=== PATIENT | female | born 1960 | race Caucasian/White ===

== ENCOUNTER → 2016-12-25 | Outpatient (REF) | payer MEDICAID, OTHER ==
[2016-12-29 00:07] LABS: SJOGREN'S ANTI SS-A <0.2 AI (0.0-0.9); SJOGREN'S ANTI SS-B <0.2 AI (0.0-0.9)
== END ==
LOC: M LAB REF 16:55
PROVIDERS: ATTEND Internal Medicine Pulmonary Disease
DX: J84.9 Interstitial pulmonary disease, unspecified (principal)

== ENCOUNTER → 2017-04-10 | Outpatient (CLI) | payer MEDICARE, MEDICAID ==
[~2017-04-10] MED LIST: ALBU17IN INH; AZEL0.05 OP; AZEL0.1S3; FOSA70TA PO; HYDR-3363 PO; IPRASOL4 IN; METF750T PO; METO1TAB32 PO; MONT10TA2 PO; OMEP40CA2 PO; OYST500T17 PO; QUET1TAB7 PO; SERT-138 PO; TESS100C PO; VITA200016 PO
--- NOTE | 2017-04-10 17:36 | REP ---
CT study of chest without contrast: History: Interstitial pulmonary disease. Comparison is made with films from a thoracic spine radiographic series done November 02, 2015. CT findings: Noncontrast CT study shows scattered small mediastinal lymph nodes. No hilar adenopathy is appreciated on this noncontrast study. There is a diffuse interstitial fibrosis pattern, predominantly subpleural in the lower lobes bilaterally and in the upper lobes bilaterally. This is associated with bronchiectasis in the same distribution fairly extensively. There is relative sparing of lingular segment of the left upper lobe with oligemia in this segment. There is similar sparing and apparent oligemia in the superior segment right lower lobe. No endobronchial disease is seen. There is a right tracheal diverticulum noted incidentally measuring 1.3 cm in diameter. This is an uncommon normal variant, usually of no significance. The lung parenchyma shows interstitial fibrosis pattern on the 11/02/2015 radiographs of the thoracic spine. No pulmonary mass or nodule is appreciated. No pleural or pericardial effusion is seen. No bony destructive lesion is appreciated. No adrenal lesion is seen. Impression: Interstitial fibrosis pattern with predominantly subpleural fibrosis, bilateral bronchiectasis, some sparing in the lingula and superior segment of the right lower lobe. 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 Signed by Chano Smith MD 04/11/2017 09:24 A
== END ==
LOC: M RAD 15:32
PROVIDERS: ATTEND Internal Medicine Pulmonary Disease
DX: J84.9 Interstitial pulmonary disease, unspecified (principal)

== ENCOUNTER → 2017-04-11 | Outpatient (CLI) | payer MEDICARE, MEDICAID ==
[2017-04-11 13:08] LABS: ABG BASE EXCESS 1.3 (-2.0-2.0); ABG HCO3 27.3 MEQ/L (22.0-26.0); ABG PARTIAL PRESSURE CO2 48.2 mmHg (35.0-45.0); ABG PARTIAL PRESSURE O2 78.5 mmHg (75.0-100.0); ABG STANDARD HCO3 25.6 MEQ/L (22.0-26.0); ABG TOTAL CO2 28.8 MEQ/L (22.0-29.0); ABG pH (ARTERIAL) 7.371 UNITS (7.350-7.450)
[2017-04-11 13:31] LABS: MEAN CORPUSCULAR HEMOGLOBIN 31.7 pg (27.0-33.0); MEAN CORPUSCULAR HGB CONC 33.6 g/dl (32.0-36.5); MEAN CORPUSCULAR VOLUME 94.5 fl (80.0-96.0); RED CELL DISTRIBUTION WIDTH 12.2 % (11.5-14.5); WHITE BLOOD COUNT 12.2 K/mm3 (4.0-10.0)
[2017-04-11 13:38] LABS: INR 0.97
--- NOTE | 2017-04-11 13:54 | REP ---
CHEST, TWO VIEWS: HISTORY: Pulmonary nodule. There is elevation of the right hemidiaphragm. A diffuse increase in interstitial markings is present in the lungs consistent with chronic interstitial fibrosis. The heart is normal in size. The pulmonary vasculature is normal in appearance. The bony structure is intact. IMPRESSION: Chronic interstitial fibrosis. Signed by Thanh Penn MD 04/11/2017 02:07 P
[2017-04-11 13:57] LABS: ANION GAP 6 MEQ/L (8-16); BLOOD UREA NITROGEN 7 MG/DL (7-18); CALCIUM LEVEL 9.2 MG/DL (8.5-10.1); CARBON DIOXIDE LEVEL 31 MEQ/L (21-32); CHLORIDE LEVEL 96 MEQ/L (98-107); CREATININE FOR GFR 0.64 MG/DL (0.55-1.02); GLOMERULAR FILTRATION RATE > 60.0 (>51); GLUCOSE, FASTING 157 MG/DL (70-105); SODIUM LEVEL 133 MEQ/L (136-145)
--- NOTE | 2017-04-12 13:24 | ECGEPIP ---
Stationary ECG Study [facility] Test Date: 2017-04-11 Pat Name: CÉSAR GASTELUM Department: Room: - Gender: F [employer] Cou[employer]: AJAY : 1960 Requested By: Dick Fields Order Number: [id number] Reading MD: Magan Gregory Measurements Intervals [place] Rate: 81 P: 16 KS: 154 QRS: -18 QRSD: 94 T: 2 QT: 368 QTc: 428 Interpretive Statements SINUS RHYTHM MODERATE VOLTAGE CRITERIA FOR LVH, Leftward axis. No prior ECG available for comparison at the time of interpretation. Electronically Signed On 04-12-2017 13:24:33 EDT by Magan Gregory
== END ==
LOC: M LAB 12:35
PROVIDERS: ATTEND Thoracic Surgery (Cardiothoracic Vascular Surgery)
DX: R91.1 Solitary pulmonary nodule (principal)

== ENCOUNTER 2017-04-13 07:30 | Inpatient (IN) | payer MEDICARE, MEDICAID ==
[~2017-04-13] VITALS: Ht 152.4 cm; Wt 61.5 kg
[2017-04-13] VITALS (20 sets, daily range): BP systolic 90–119; BP diastolic 55–76; O2SAT 94
[2017-04-13] MEDS: SERTRALINE 100 MG TAB PO SCH (09:00)
[2017-04-13] MEDS ORDERED: LR 1,000 ML IV ONE (09:00)
[2017-04-13] MEDS ORDERED: MUPIROCIN 2% OINT 22 GM TUBE TOP ONE (10:00)
[2017-04-13] MEDS ORDERED: NEOSTIGMINE 1MG/ML 5 ML SYRINGE (J2710) As Ordered ONE (10:27)
[2017-04-13] MEDS ORDERED: METOCLOPRAMIDE INJ 10MG/2ML VIAL (J2765) As Ordered ONE (10:27)
[2017-04-13] MEDS ORDERED: fentaNYL 250 MCG/5 ML INJECTION (J3010) As Ordered ONE (10:27)
[2017-04-13] MEDS ORDERED: MIDAZOLAM INJ 2 MG/2 ML VIAL (J2250) As Ordered ONE ×2 (10:27→11:00)
[2017-04-13] MEDS ORDERED: LIDOCAINE 2% INJ 100 MG/5 ML SDV (FOR ANES.) As Ordered ONE (10:27)
[2017-04-13] MEDS ORDERED: ROCURONIUM BROMIDE 50 MG/5 ML VIAL/SYRINGE As Ordered ONE ×2 (10:27→12:22)
[2017-04-13] MEDS ORDERED: PROPOFOL 200 MG/20 ML VIAL As Ordered ONE (10:27)
[2017-04-13] MEDS ORDERED: GLYCOPYRROLATE INJ 0.2 MG/ML 2 ML VIAL As Ordered ONE (10:27)
[2017-04-13] MEDS ORDERED: ONDANSETRON 4MG/2ML VIAL (J2405) As Ordered ONE (10:27)
[2017-04-13] MEDS ORDERED: BUPIVACAINE HCL 0.25% 30 ML VIAL As Ordered ONE (10:28)
[2017-04-13] MEDS ORDERED: BUPIVACAINE LIPOSOME/PF 1.3% 20 ML VIAL (13.3MG/ML)(EXPAREL) As Ordered ONE (10:53)
[2017-04-13] MEDS ORDERED: BUPIVACAINE HCL 0.5% 10 ML VIAL As Ordered ONE (10:53)
[2017-04-13] MEDS ORDERED: CETACAINE SPRAY 20GM (FLOOR STOCK) As Ordered ONE (10:54)
[2017-04-13] MEDS ORDERED: fentaNYL 100 MCG/2 ML INJECTION (J3010) As Ordered ONE ×2 (11:00→14:10)
[2017-04-13] MEDS ORDERED: EPIDURAL/PCA KEYS XX PRN (11:30)
[2017-04-13] MEDS ORDERED: fentaNYL 100 MCG/2 ML INJECTION (J3010) IV ONE (11:30)
[2017-04-13] MEDS ORDERED: MIDAZOLAM INJ 2 MG/2 ML VIAL (J2250) IV ONE (11:30)
[2017-04-13] MEDS ORDERED: METOCLOPRAMIDE INJ 10MG/2ML VIAL (J2765) IV PRN ×2 (11:30→14:15)
[2017-04-13] MEDS ORDERED: diphenhydrAMINE INJ 50MG/ML VIAL (J1200) IV PRN (11:30)
[2017-04-13] MEDS ORDERED: WALLBOXKEY XX PRN (11:30)
[2017-04-13] MEDS ORDERED: ONDANSETRON 4MG/2ML VIAL (J2405) IV PRN ×2 (11:30→14:15)
[2017-04-13] MEDS ORDERED: NALOXONE INJ 0.4 MG/1 ML VIAL (J2310) IV PRN (11:30)
[2017-04-13] MEDS ORDERED: ACETAMINOPHEN TAB 650MG DOSE (2X325MG) PO PRN (13:30)
[2017-04-13] MEDS ORDERED: ALBUTEROL 90 MCG/ACT 8GM HFA INHALER INH PRN (13:30)
[2017-04-13] MEDS ORDERED: NORCO, ANEXSIA 5/325MG TABLET (HYDROcodone/ACETAMINOPHEN) PO PRN (13:30)
[2017-04-13] MEDS ORDERED: PERCOCET 5MG/325MG TAB PO PRN ×3 (13:30→14:15)
[2017-04-13] MEDS ORDERED: BISACODYL 10 MG SUPP PR PRN (13:30)
[2017-04-13] MEDS ORDERED: LEVALBUTEROL 1.25 MG/0.5 ML CONCENTRATE NEB NEB PRN (13:30)
[2017-04-13] MEDS: fentaNYL 100 MCG/2 ML INJECTION (J3010) IV PRN ×8 (14:12→15:40)
[2017-04-13] MEDS ORDERED: LR 1,000 ML IV SCH (14:15)
[2017-04-13] MEDS ORDERED: MEPERIDINE INJ 25 MG/ML VIAL (J2175) IV PRN (14:15)
[2017-04-13 14:23] LABS: BASO # 0.1 K/mm3 (0.0-0.2); BASO % 0.6 % (0.0-1.0); EOS # 0.2 K/mm3 (0.0-0.50); EOS % 1.5 % (0.0-3.0); LARGE UNSTAINED CELL # 0.1 K/mm3 (0.0-0.4); LARGE UNSTAINED CELL % 0.9 % (0.0-4.0); LYMPH # 2.7 K/mm3 (1.5-4.5); LYMPH % 20.6 % (24.0-44.0); MEAN CORPUSCULAR HGB CONC 32.3 g/dl (32.0-36.5); MEAN CORPUSCULAR VOLUME 96.1 fl (80.0-96.0); MONO # 0.5 K/mm3 (0.0-0.8); MONO % 4.3 % (0.0-5.0); NEUTROPHILS # 8.9 K/mm3 (1.8-7.7); NEUTROPHILS % 72.2 % (36.0-66.0); PLATELET COUNT, AUTOMATED 224 k/mm3 (150-450); RED CELL DISTRIBUTION WIDTH 12.4 % (11.5-14.5); WHITE BLOOD COUNT 12.4 K/mm3 (4.0-10.0)
[2017-04-13 14:27] LABS: ABG BASE EXCESS 1.6 (-2.0-2.0); ABG HCO3 33.1 MEQ/L (22.0-26.0); ABG PARTIAL PRESSURE O2 133.7 mmHg (75.0-100.0); ABG STANDARD HCO3 25.9 MEQ/L (22.0-26.0); ABG TOTAL CO2 35.9 MEQ/L (22.0-29.0)
[2017-04-13 14:28] LABS: ABG PARTIAL PRESSURE CO2 91.5 mmHg (35.0-45.0)
[2017-04-13 14:33] LABS: ABG pH (ARTERIAL) 7.176 UNITS (7.350-7.450)
[2017-04-13 14:48] LABS: ANION GAP 3 MEQ/L (8-16); BLOOD UREA NITROGEN 8 MG/DL (7-18); CALCIUM LEVEL 8.9 MG/DL (8.5-10.1); CARBON DIOXIDE LEVEL 32 MEQ/L (21-32); CHLORIDE LEVEL 101 MEQ/L (98-107); CREATININE FOR GFR 0.77 MG/DL (0.55-1.02); GLOMERULAR FILTRATION RATE > 60.0 (>51); GLUCOSE, FASTING 183 MG/DL (70-105); POTASSIUM SERUM 4.4 MEQ/L (3.5-5.1); SODIUM LEVEL 136 MEQ/L (136-145)
[2017-04-13 15:07] LABS: ABG BASE EXCESS -0.3 (-2.0-2.0); ABG HCO3 29.1 MEQ/L (22.0-26.0); ABG STANDARD HCO3 24.1 MEQ/L (22.0-26.0); ABG TOTAL CO2 31.3 MEQ/L (22.0-29.0)
--- NOTE | 2017-04-13 15:09 | REP ---
Chest x-ray: Two views. History: Pulmonary fibrosis. Comparison chest x-ray 04/11/2017. Findings: An epidural catheter is noted in place overlying the thoracic spine. A left chest tube is seen in place. There is a tiny sliver of pleural air along the left lateral rib cage and some extrathoracic air is seen at the chest tube insertion. Extensive interstitial infiltrates are seen as on prior study consistent with pulmonary fibrosis. Hilar silhouettes are prominent as well unchanged. Signed by Chano Smith MD 04/13/2017 04:18 P
[2017-04-13 15:11] LABS: ABG PARTIAL PRESSURE CO2 71.2 mmHg (35.0-45.0)
[2017-04-13] MEDS: KCL 20MEQ IN D5/NS 1000ML 1,000 ML IV SCH (16:00)
[2017-04-13] MEDS: KETOROLAC 30 MG/ML VIAL (J1885) IV SCH ×2 (16:41→21:35)
--- NOTE | 2017-04-13 17:52 | CCN ---
DATE: 04/13/2017 TIME PATIENT WAS SEEN: 1500. CONSULTING PHYSICIAN: Dr. Schwartz RETAIL DISTRICT MANAGER: Dr. Ornelas PRIMARY CARE PROVIDER: Dr. Lugo REASON FOR CONSULTATION: Pulmonary fibrosis, status post wedge resection for lung biopsy. HISTORY OF PRESENT ILLNESS: A 57-year-old female with past medical history of unspecified chronic interstitial lung disease, undergoing workup, bronchiectasis , minimal peripheral fibrosis, chronic hypoxic respiratory failure on 2 liters of oxygen nasal cannula 24 hours a day, anxiety with panic attack, cos-afxiomf-lxmznewbk type 2 diabetes, osteoporosis, history of cataract, status post surgery, presented for lung biopsy with Dr. Schwartz this morning. Patient usually sees Dr. Dey from pulmonology. Last time patient was seen was on 04/10/2017. She had a pulmonary function test on the same day, and she had a lot of difficulties on the day and could perform diffusion maneuvers; however, according to Dr. Dey' note, she had a reduced FVC and FEV1. Patient's obstruction ratio was above the lower limits of normal. She had decreased total lung capacity and residual volume, but she has a high residual volume (RV)/total lung capacity (TLC) ratio. She also had decreased airway resistance. She was felt to have a very severe airflow restriction. She had outpatient workup that was negative for connective tissue, a normal LINDA, and normal Sjogren panel, and also negative ANCA. Immediately post surgery, Dr. Schwartz had contacted our pulmonary service. We emergently went to PACU, and for patient's increased shortness of breath patient's initial arterial blood gas (ABG) was done and shows a pH of 7.17, pCO2 of 91, pO2 of 133. Dr. Schwarzt ordered patient on bilevel positive airway pressure (BiPAP) with 12/6. At that point, patient's tidal volume was in the high 300s, close to 400. Respiratory rate was around 35. After 20 minutes, a repeat ABG shows improvement with a pH of 7.23, pCO2 of 71, pO2 of 74. Patient's tidal volume this time was around 400, and the respiratory rate was close to 30. At this point, Dr. Ornelas helped to change the bilevel setting to 14/6 from 12/6. Otherwise, patient denies any substernal chest pain; however, she did complain about left-sided chest pain from the chest tube. Patient admits to shortness of breath. Denies any abdominal pains, any nausea. ALLERGIES: No known drug allergies. PAST MEDICAL HISTORY: 1. Chronic interstitial lung disease with bronchiectasis and minimal peripheral fibrosis. 2. Chronic hypoxic respiratory failure. 3. History of anxiety with panic attack. 4. History of chronic sinusitis. 5. Gik-yntwgvk-lgjfxapva type 2 diabetes. 6. Osteoporosis. 7. Retinal detachment. 8. History of cataract. PAST SURGICAL HISTORY: Repair of retinal detachment and also cataract surgery. HOME MEDICATIONS: - albuterol sulfate 200 two puff inhalation as needed - DuoNeb four times a day as needed - alendronate 70 mg one tablet by mouth weekly - Azelastine nasal spray in each naris twice a day - benzonatate 100 mg one tablet by mouth daily - calcium with vitamin D one tablet by mouth daily - hydroxyzine 25 mg one tablet by mouth every 8 hours - metformin 750 mg one tablet by mouth daily - metoprolol 25 mg one tablet by mouth daily - montelukast 10 mg one tablet by mouth every evening - omeprazole 40 mg one tablet by mouth daily - quetiapine 25 mg one tablet by mouth at bedtime - sertraline 100 mg one tablet by mouth daily - vitamin D 2000 units one tablet by mouth daily SOCIAL HISTORY: Patient stated that she never smoked. Does not drink or use any recreational drugs. She is with two dogs. FAMILY HISTORY: Patient's father from chronic obstructive pulmonary disease (COPD), who also has osteoporosis and degenerative disc disease. Patient's mother has asthma. REVIEW OF SYSTEMS: Full review of systems could not be obtained from patient due to patient was very dyspneic on bilevel non-invasive ventilation; however, she denied any substernal chest pain. Admits to left-sided chest pain from chest tube. Denies any abdominal pains, any nausea, any problem with urination. PHYSICAL EXAMINATION: VITAL SIGNS: Temperature 99, pulse 100, respirations 35, blood pressure 135/75, oxygen was saturating at 99% on bilevel non-invasive ventilation with a setting of 12/6, FiO2 of 35%. GENERAL: Patient is a middle-aged female who looks older than her age, who was alert, awake, oriented times three. Appears to be in moderate distress, sitting up in her hospital bed with head elevated at 60 degrees. HEENT: Normocephalic, atraumatic. Extraocular motor intact. Mucous membranes moist. NECK: Supple. No neck lymphadenopathy. Patient has bilevel mask on. LUNGS: Show slight bilateral rhonchi with some end-expiratory wheezing, more significantly on the left side. Patient's incision on the left chest for the chest tube dressing was dry, clean, and intact. CARDIOVASCULAR: Tachycardic, normal S1, S2. No murmurs. ABDOMEN: Positive bowel sounds. Soft, nontender, nondistended. No peritoneal signs. EXTREMITIES: No edema, clubbing, or cyanosis. SKIN: Warm and dry. NEUROLOGIC: Cranial nerves II-XII intact. LABORATORY DATA: WBC 12.4, hemoglobin 13.9, hematocrit 42.9 with MCV of 96.1 and platelet count of 224. Patient's sodium is 136, potassium 4.4, chloride 101, bicarbonate 32, anion gap 3, BUN 8, creatinine 0.77, GFR greater than 60, fasting glucose 183, calcium 8.9. Patient's ABG was drawn at 1326 with a pH of 7.176, pCO2 of 91.5, pO2 of 133. Another ABG drawn at 1459 shows pH of 7.23, pCO2 of 71.2, pO2 was 74. Patient's pathology of the lung biopsy is currently pending. Patient did receive a portable chest x-ray at roughly 1:30 post surgery, which shows significant amount of bilateral patchy infiltrates, more on the left side. Patient's chest tube was in place. It appeared to be worse compared to x-ray done 2 days ago; however, due to this is a portable chest x-ray, it is difficult to make the comparison. ASSESSMENT AND PLAN: A 57-year-old female with significant chronic hypoxic respiratory failure at baseline. Uses 2 liters of nasal cannula 24 hours a day at home, presenting with: 1. The primary problem requiring critical care assessment is acute hypercapnic respiratory failure with severe acute respiratory acidosis with underlying chronic interstitial lung disease status post bronchoscopy with thoracoscopy with left-sided wedge resection for lung biopsy. Patient was continued on bilevel noninvasive ventilation. We have changed the setting to 14/6. Patient is feeling better. Repeat ABG shows improvement. We would recommend to continue Xopenex nebulizer every 6 hours and continue to monitor patient critically in the intensive care unit (ICU). ICU staff was contacted to facilitate transfer. 2. Abnormal chest x-ray with bilateral patchiness that has increased from patient's baseline, likely a combination of post surgery and also due to her chronic interstitial lung disease of unknown etiology. Will followup with the pathology from the lung biopsy. 3. Acute respiratory acidosis. ABG shows improvement. Patient is also on chest tube post surgery. Will followup. Continue patient on bilevel noninvasive mechanical ventilation. 4. Deep vein thrombosis (DVT) prophylaxis, on heparin 5000 units subcutaneous every 12 hours. Total critical care time is at least 1 hour, excluding procedure time. Patient has been discussed with attending doctor, Dr. Ornelas. We coordinated care with Anaesthesia and the attending surgeon. My preceptor for this patient encounter was Dr. Magan Ornelas who was present for the examination and actively participated in the assessment and britton components of this visit. We collaborated on the content of this note and the complex medical decision making reflected therein. The preceptor is aware and concurs with the plan as stated in the body of this note and will attest to such by his/her co-signature. FREDDY
[2017-04-13] MEDS: FENTANYL/BUPIVACAINE/NACL BAG 250 ML EPIDURAL SCH (19:00)
[2017-04-13] MEDS: LEVALBUTEROL 1.25 MG/0.5 ML CONCENTRATE NEB NEB SCH (19:46)
[2017-04-13] MEDS: MONTELUKAST 10 MG TAB PO SCH (21:27)
[2017-04-13] MEDS: DOCUSATE SODIUM 100 MG CAP PO SCH (21:27)
[2017-04-13] MEDS: hydrOXYzine 25 MG TAB PO SCH (21:28)
[2017-04-13] MEDS: METOPROLOL SUCC *XL* 25MG TAB (TopROL *XL*) PO SCH (21:28)
[2017-04-13] MEDS: QUEtiapine FUMARATE 25 MG TAB PO SCH (21:29)
[2017-04-13] MEDS: AZELASTINE 137MCG NASAL SPY 30 ML (ASTELIN) SCH (21:35)
[2017-04-13] MEDS: HEPARIN SOD (PORCINE) 5000 UNITS/ML VIAL SC SCH (21:37)
[2017-04-13 21:45] LABS: ABG BASE EXCESS 2.9 (-2.0-2.0); ABG HCO3 30.3 MEQ/L (22.0-26.0); ABG PARTIAL PRESSURE CO2 59.2 mmHg (35.0-45.0); ABG STANDARD HCO3 27.1 MEQ/L (22.0-26.0); ABG TOTAL CO2 32.1 MEQ/L (22.0-29.0); ABG pH (ARTERIAL) 7.327 UNITS (7.350-7.450)
[2017-04-13 21:47] LABS: ABG PARTIAL PRESSURE O2 311.7 mmHg (75.0-100.0)
[2017-04-14] VITALS (9 sets, daily range): BP systolic 101–132; BP diastolic 58–81
[2017-04-14] MEDS: LEVALBUTEROL 1.25 MG/0.5 ML CONCENTRATE NEB NEB SCH ×4 (01:36→19:30)
[2017-04-14] MEDS: KETOROLAC 30 MG/ML VIAL (J1885) IV SCH ×4 (04:19→21:29)
[2017-04-14] MEDS: KCL 20MEQ IN D5/NS 1000ML 1,000 ML IV SCH (04:20)
[2017-04-14 04:54] LABS: BASO % 0.2 % (0.0-1.0); EOS # 0.3 K/mm3 (0.0-0.50); EOS % 1.7 % (0.0-3.0); LARGE UNSTAINED CELL # 0.1 K/mm3 (0.0-0.4); LARGE UNSTAINED CELL % 0.8 % (0.0-4.0); LYMPH # 2.3 K/mm3 (1.5-4.5); LYMPH % 12.3 % (24.0-44.0); MEAN CORPUSCULAR HEMOGLOBIN 32.7 pg (27.0-33.0); MEAN CORPUSCULAR HGB CONC 33.9 g/dl (32.0-36.5); MEAN CORPUSCULAR VOLUME 96.6 fl (80.0-96.0); MONO # 0.8 K/mm3 (0.0-0.8); MONO % 4.6 % (0.0-5.0); NEUTROPHILS # 14.2 K/mm3 (1.8-7.7); NEUTROPHILS % 80.4 % (36.0-66.0); PLATELET COUNT, AUTOMATED 184 k/mm3 (150-450); RED CELL DISTRIBUTION WIDTH 12.5 % (11.5-14.5); WHITE BLOOD COUNT 17.6 K/mm3 (4.0-10.0)
[2017-04-14 05:07] LABS: ANION GAP 4 MEQ/L (8-16); BLOOD UREA NITROGEN 5 MG/DL (7-18); CALCIUM LEVEL 8.2 MG/DL (8.5-10.1); CARBON DIOXIDE LEVEL 31 MEQ/L (21-32); CHLORIDE LEVEL 100 MEQ/L (98-107); CREATININE FOR GFR 0.58 MG/DL (0.55-1.02); GLOMERULAR FILTRATION RATE > 60.0 (>51); GLUCOSE, FASTING 177 MG/DL (70-105); POTASSIUM SERUM 4.2 MEQ/L (3.5-5.1); SODIUM LEVEL 135 MEQ/L (136-145)
[2017-04-14 05:53] LABS: ABG BASE EXCESS 3.6 (-2.0-2.0); ABG HCO3 30.2 MEQ/L (22.0-26.0); ABG PARTIAL PRESSURE CO2 54.6 mmHg (35.0-45.0); ABG PARTIAL PRESSURE O2 92.8 mmHg (75.0-100.0); ABG STANDARD HCO3 27.7 MEQ/L (22.0-26.0); ABG TOTAL CO2 31.9 MEQ/L (22.0-29.0); ABG pH (ARTERIAL) 7.361 UNITS (7.350-7.450)
[2017-04-14] MEDS: hydrOXYzine 25 MG TAB PO SCH ×3 (06:22→21:28)
[2017-04-14] MEDS: FENTANYL/BUPIVACAINE/NACL BAG 250 ML EPIDURAL SCH (07:52)
[2017-04-14] MEDS: metFORMIN XR 750 MG TAB PO SCH (08:00)
--- NOTE | 2017-04-14 08:17 | REP ---
PORTABLE CHEST, ONE VIEW: HISTORY: Chest tube. COMPARISON: 04/13/2017 A diffuse increase in interstitial markings is present in the lungs consistent with chronic interstitial fibrosis. A small left pneumothorax is present. A chest tube is present in the left hemithorax. The heart is normal in size. Subcutaneous emphysema is present over the left hemithorax. IMPRESSION: 1. Chronic interstitial fibrosis. 2. Small left pneumothorax, unchanged compared to the previous study. Signed by Thanh Penn MD 04/14/2017 08:18 A
[2017-04-14] MEDS ORDERED: PANTOPRAZOLE 40MG INJ (PROTONIX) (C9113) IV SCH (09:00)
[2017-04-14] MEDS: HEPARIN SOD (PORCINE) 5000 UNITS/ML VIAL SC SCH ×2 (09:11→21:29)
[2017-04-14] MEDS: PANTOPRAZOLE 40MG TAB (PROTONIX) PO SCH (09:11)
[2017-04-14] MEDS: MOM 30ML SUSPENSION UDC PO SCH (09:11)
[2017-04-14] MEDS: SERTRALINE 100 MG TAB PO SCH (09:11)
[2017-04-14] MEDS: DOCUSATE SODIUM 100 MG CAP PO SCH ×2 (09:11→21:28)
[2017-04-14] MEDS: AZELASTINE 137MCG NASAL SPY 30 ML (ASTELIN) SCH ×2 (09:12→21:30)
[2017-04-14] MEDS: CALCIUM/VITAMIN D 500 MG TAB PO SCH (09:12)
[2017-04-14] MEDS: VITAMIN D 1,000 INTERNATIONAL UNITS TABLET PO SCH (09:12)
[2017-04-14] MEDS ORDERED: GLUCAGON FOR INJ 1 MG VIAL (J1610) SC PRN (09:15)
[2017-04-14] MEDS ORDERED: DEXTROSE 50% 50 ML SYRINGE IV PRN (09:15)
[2017-04-14] MEDS ORDERED: GLUCOSE 4 GM CHEW TABLET PO PRN (09:15)
[2017-04-14] MEDS ORDERED: METOCLOPRAMIDE INJ 10MG/2ML VIAL (J2765) IV PRN (10:15)
[2017-04-14] MEDS ORDERED: NALBUPHINE HCL 10 MG/ML AMP (J2300) IV PRN (10:15)
[2017-04-14] MEDS ORDERED: ONDANSETRON 4MG/2ML VIAL (J2405) IV PRN ×2 (10:15)
[2017-04-14] MEDS ORDERED: WALLBOXKEY XX PRN (10:15)
[2017-04-14] MEDS ORDERED: NALOXONE INJ 0.4 MG/1 ML VIAL (J2310) IV PRN ×2 (10:15)
[2017-04-14] MEDS ORDERED: diphenhydrAMINE INJ 50MG/ML VIAL (J1200) IV PRN (10:15)
[2017-04-14] MEDS ORDERED: EPIDURAL/PCA KEYS XX PRN ×2 (10:15)
[2017-04-14] MEDS: NS 1,000 ML IV SCH (10:45)
[2017-04-14] MEDS: BUPIVACAINE/NACL BAG 250 ML EPIDURAL SCH (10:46)
[2017-04-14] MEDS: MORPHINE 1MG/ML IN 0.9% NACL 100ML IV BAG IV PRN (10:47)
--- NOTE | 2017-04-14 10:53 | RO ---
DATE OF PROCEDURE: 04/13/2017 PREPROCEDURE DIAGNOSIS: Pulmonary fibrosis, unknown etiology. POSTPROCEDURE DIAGNOSIS: Pulmonary fibrosis, unknown etiology. SURGEON: Dick Schwartz MD PROCEDURE: Triple wedge resection of apical basilar segment of lower lobe, posterior segment of lower lobe and lingula, bronchoscopy and five level rib block using video-assisted thoracoscopic surgery (VATS) techniques. ANESTHESIA: FINDINGS: The lower lobe was cobblestoned. The apical basilar segment was cobblestoned but not as much as the lower segment. The lingual looked pink and normal. Three biopsies were taken, one from the apical basilar segment, one from the posterior segment of the lower lobe and one from the lingula. Bronchoscopy revealed normal branching endotracheal bronchial tree with moderate secretions. PROCEDURE: Under satisfactory general anesthesia and single lumen tube endotracheal intubation, bronchoscope was passed into the endotracheal bronchial tree. Each segment and subsegment was thoroughly inspected and there were no endobronchial lesions. There was pitting of the bronchi, particularly the mainstem at the junction of the take-off of the segmental bronchi. There were moderate amounts of secretions and these were suction aspirated. The patient was then turned to the right lateral decubitus position after double lumen endotracheal intubation and checking the position of the double lumen tube with bronchoscopy. The patient was then prepped and draped in the usual sterile fashion and a small incision was made in the mid axillary line around the 6th intercostal space. The 5 mm port was placed under insufflation and direct thoracoscopic visualization. The lung was gratifying not adherent to the chest wall. It fell easily. The pleural cavity and the lung were thoroughly inspected and the three aforementioned sites were chosen. The apical basilar segment of the lower lobe was first seized with a grasper and a wedge resection was accomplished with a [place] OLGA stapler. Likewise the same was done on the posterior segment of the lower lobe and finally a small piece of the lingula, which looked normal, was wedged out. It should be noted that this was all done through a subxiphoid incision, having divided the linea alba and gained access to the chest above the diaphragm through the pericardial fat. After achieving hemostasis and checking the staple lines and suctioning residual blood from the biopsies, a #20 chest tube was placed posterior and superiorly. Additional thoracoscopic port incision was closed with running #3-0 Vicryl suture for the subcutaneous tissue and #4-0 Monocryl suture for the skin and the subxiphoid incision was closed with running 0 Vicryl suture for the linea alba, #3-0 Vicryl suture for the subcutaneous tissue and #4-0 Monocryl subcuticular for the skin. The patient tolerated the procedure well and left the operating room in satisfactory condition for the recovery room. FREDDY
[2017-04-14] MEDS: HumaLOG INSULIN (NovoLOG) PER UNIT SC SCH ×2 (12:16→17:59)
--- NOTE | 2017-04-14 14:17 | IPN ---
DATE: 04/14/2017 This is now the first postoperative day for Mrs. Gaytan. She remains on BiPAP. She desaturates down into the 60s when she is off BiPAP and coughing. She is bringing up some blood tinged sputum. Her pain is being fairly well controlled with the epidural and additional Toradol. She has a small air leak. Her vital signs show a maximum temperature (t-max) of 99.8 with a heart rate that ranges between 94 and 114 in a sinus rhythm with a respiratory rate of anywhere from 28 to 48. She is not using accessory muscles on the BiPAP. She is 93 to 95% saturated on FiO2 of 35%. Her blood pressure is ranging between 103/59 to 119/57. Her intake and output over the past 24 hours has been recorded as 967 in and 663 out for a positivity of 300 mL. She has put out 128 mL from the chest tube and there is a small air leak. In the last 12 hours, she has put out 137 mL. She weighs 64.8 kg today compared to 59 kg yesterday and 60 kg on admission. PHYSICAL EXAMINATION: LUNGS: She has crackles and rales in both lungs throughout. The right lung shows fine adventitial sounds. The left lung has more coarse rales and rhonchi. Percussion note is full to the diaphragm. CARDIAC EXAM: Without murmurs, clicks, gallops or rubs. I cannot feel her point of maximum impulse (PMI). S1, S2 are normal. ABDOMEN: Soft, nontender. Bowel sounds positive. There is no hepatomegaly. No costovertebral angle tenderness. EXTREMITIES: Show no pretibial edema. No calf tenderness. No differential swelling of the upper extremities. SKIN: Warm, dry and perfused without cyanosis or mottling, including that of the nail beds and knees. NECK: Supple. There is no jugular venous distention. No subcutaneous emphysema. Trachea is midline. MOUTH: Shows her mucous membranes to be pink and moist. Lips and commissures without lesions. There is no thrush. EYES: Show her pupils to be equal and reactive. Extraocular motion intact. Sclerae anicteric. NEUROLOGIC: Shows II through XII intact with gross motor and gross sensation intact. Gait is not tested. PSYCHIATRIC: Shows her to be awake and alert. Her white count today is 17.6 with a hemoglobin and hematocrit of 12.6 and 37.3. Platelet count is 187 and her differential shows 80% neutrophils, 12% lymphocytes, 4% monocytes. Chemistries show essentially normal electrolytes with a BUN and creatinine of 5 and 0.58 and glucose of 177, calcium of 8.2. Her blood gases this morning show a pH of 7.36 with a PCO2 of 54 and a PO2 of 92. Base excess is 3.6. Chest x-ray today shows a small air space in the lateral left chest. There is subcutaneous emphysema in the lateral chest additionally. The film was done portably and there are infiltrative changes throughout both sides. I do see the diaphragmatic borders and the costophrenic angles are sharp. IMPRESSION: 1. Interstitial lung disease of unknown origin, final pathology pending. 2. Hypoxia. 3. Hypercarbia, improved. 4. Diabetes. 5. Anxiety. 6. Reactive airway disease. PLAN AND DISCUSSION: I will try her on 15 liters high flow cannula in addition to CPAP to see if we can get her intermittently off the BiPAP and that we can get her to start eating and having a more effective cough. I will also turn her chest tube suction up to 40, as she has an air space with a very noncompliant lung. We will also start her on sliding scale for her insulin.
[2017-04-14] MEDS: QUEtiapine FUMARATE 25 MG TAB PO SCH (21:28)
[2017-04-14] MEDS: MONTELUKAST 10 MG TAB PO SCH (21:29)
[2017-04-14] MEDS: METOPROLOL SUCC *XL* 25MG TAB (TopROL *XL*) PO SCH (21:29)
[2017-04-14] MEDS: diphenhydrAMINE INJ 50MG/ML VIAL (J1200) IV PRN (21:37)
[2017-04-15] VITALS (8 sets, daily range): BP systolic 100–140; BP diastolic 61–82; O2SAT 77
[2017-04-15] MEDS: LEVALBUTEROL 1.25 MG/0.5 ML CONCENTRATE NEB NEB SCH ×4 (01:14→19:17)
[2017-04-15] MEDS: BUPIVACAINE/NACL BAG 250 ML EPIDURAL SCH ×2 (02:46→18:05)
[2017-04-15] MEDS: KETOROLAC 30 MG/ML VIAL (J1885) IV SCH ×4 (04:37→21:24)
[2017-04-15 04:51] LABS: BASO % 0.3 % (0.0-1.0); EOS # 0.4 K/mm3 (0.0-0.50); EOS % 2.9 % (0.0-3.0); LARGE UNSTAINED CELL # 0.1 K/mm3 (0.0-0.4); LARGE UNSTAINED CELL % 0.8 % (0.0-4.0); LYMPH # 2.1 K/mm3 (1.5-4.5); LYMPH % 13.6 % (24.0-44.0); MEAN CORPUSCULAR HEMOGLOBIN 31.4 pg (27.0-33.0); MEAN CORPUSCULAR HGB CONC 32.5 g/dl (32.0-36.5); MEAN CORPUSCULAR VOLUME 96.6 fl (80.0-96.0); MONO # 0.7 K/mm3 (0.0-0.8); MONO % 4.9 % (0.0-5.0); NEUTROPHILS # 11.4 K/mm3 (1.8-7.7); NEUTROPHILS % 77.5 % (36.0-66.0); PLATELET COUNT, AUTOMATED 166 k/mm3 (150-450); RED CELL DISTRIBUTION WIDTH 12.4 % (11.5-14.5); WHITE BLOOD COUNT 14.7 K/mm3 (4.0-10.0)
[2017-04-15 05:00] LABS: ANION GAP 3 MEQ/L (8-16); BLOOD UREA NITROGEN 4 MG/DL (7-18); CALCIUM LEVEL 8.5 MG/DL (8.5-10.1); CARBON DIOXIDE LEVEL 34 MEQ/L (21-32); CHLORIDE LEVEL 100 MEQ/L (98-107); CREATININE FOR GFR 0.49 MG/DL (0.55-1.02); GLOMERULAR FILTRATION RATE > 60.0 (>51); GLUCOSE, FASTING 128 MG/DL (70-105); POTASSIUM SERUM 3.9 MEQ/L (3.5-5.1); SODIUM LEVEL 137 MEQ/L (136-145)
[2017-04-15] MEDS: hydrOXYzine 25 MG TAB PO SCH ×3 (06:34→21:23)
[2017-04-15] MEDS: HumaLOG INSULIN (NovoLOG) PER UNIT SC SCH ×5 (06:35→21:00)
[2017-04-15] MEDS: MOM 30ML SUSPENSION UDC PO SCH (08:17)
[2017-04-15] MEDS: HEPARIN SOD (PORCINE) 5000 UNITS/ML VIAL SC SCH ×2 (08:17→21:24)
[2017-04-15] MEDS: DOCUSATE SODIUM 100 MG CAP PO SCH ×2 (08:17→21:22)
[2017-04-15] MEDS: SERTRALINE 100 MG TAB PO SCH (08:17)
[2017-04-15] MEDS: CALCIUM/VITAMIN D 500 MG TAB PO SCH (08:18)
[2017-04-15] MEDS: VITAMIN D 1,000 INTERNATIONAL UNITS TABLET PO SCH (08:18)
[2017-04-15] MEDS: PANTOPRAZOLE 40MG TAB (PROTONIX) PO SCH (08:18)
[2017-04-15] MEDS: AZELASTINE 137MCG NASAL SPY 30 ML (ASTELIN) SCH ×2 (08:18→21:23)
--- NOTE | 2017-04-15 10:33 | IPN ---
DATE: 04/15/2017 Mrs. Gaytan has made spectacular progress. She is now off BiPAP and now on 4 liters nasal cannula. She is not cooperating as well as I would like her to with the incentive spirometry. I have encouraged her to use the incentive spirometer in order to expand her chest wall. There is no air leak from the chest tube today. Her vital signs show a maximum temperature (t-max) of 100.2 with a heart rate that ranges between 96 to 87 in a sinus rhythm with a respiratory rate of 26 to 38 without the use of accessory muscles, who is 99% saturated on high flow 4 liters nasal cannula. Her blood pressure is ranging between 100/61 to 124/67. Her intake and output over the past 24 hours has been recorded as 3190 in and 3252 out for near equality with a negativity of 60 mL. She has put out 297 mL from the chest tube, although that is markedly decreased over 8 hour intervals. She has put out 15 mL in the last 10 hours. Her weight today is 64.3 kg, compared to 64.8 kg yesterday. She is taking good orally at 2320 mL yesterday. PHYSICAL EXAMINATION: LUNGS: She has dry crackles on the right side and moist crackles on the left side. These occur throughout both inspiration and expiration. Percussion note is full to the diaphragm. I feel no subcutaneous emphysema over the chest wall. CARDIAC EXAM: Without murmurs, clicks, gallops or rubs. I cannot feel her point of maximum impulse (PMI). S1, S2 are normal. ABDOMEN: Soft, nontender. Bowel sounds positive. There is no hepatomegaly. No costovertebral angle tenderness. EXTREMITIES: Show no pretibial edema. No calf tenderness. No differential swelling of the upper extremities. SKIN: Warm, dry and perfused without cyanosis or mottling, including that of the nail beds and knees. NECK: Supple. There is no jugular venous distention. No subcutaneous emphysema. Trachea is midline. MOUTH: Shows her mucous membranes to be pink and moist. Lips and commissures without lesions. There is no thrush. EYES: Show her pupils to be equal and reactive. Extraocular motion intact. Sclerae anicteric. NEUROLOGIC: Shows II through XII intact with gross motor and gross sensation intact. Gait is not tested. PSYCHIATRIC: Shows her to be awake and alert, oriented times three with appropriate mood and affect and conversational. Her white count today is down to 14.7 with a hemoglobin and hematocrit of 12 and 37.1, respectively. Platelet count is 166 and stable. Differential shows 77% neutrophils, 13% lymphocytes, 4% monocytes. There are no immature forms and no toxic granulations. Her electrolytes are normal except for a marginally high total CO2 of 34. BUN and creatinine are 4 and 0.49 with a glucose of 128 and a calcium of 8.5. Chest x-ray today done PA and lateral shows a small separation of the lung from the chest wall on the lateral aspect of the left side. There looks to be a small air-fluid level on the PA film. There is subcutaneous emphysema on the lateral chest wall. Chest tube is in good place. She has increased amount of bowel gas and a large gastric bubble but not a gastric dilatation, most likely from the BiPAP. I will start her on scheduled Reglan. Lateral chest x-ray shows all the fibrotic changes posteriorly. IMPRESSION: 1. Interstitial lung disease of unknown origin, final pathology pending. 2. Hypoxia. 3. Hypercarbia, improved. 4. Diabetes. 5. Anxiety. 6. Possible reactive airway disease. PLAN AND DISCUSSION: I am very gratified that she is on 4 liters nasal cannula. I will turn her chest tube suction down to 20 today. I can envision the chest tube coming out on Sunday. I have seriously encouraged and admonished her in fact to use the incentive spirometry for the chest expansion therapy. Her pain is being well controlled with the epidural and a [employer] morphine pump.
--- NOTE | 2017-04-15 10:39 | REP ---
CHEST, TWO VIEWS: HISTORY: Pulmonary fibrosis. COMPARISON: 04/14/2017 A diffuse increase in interstitial markings is present in the lungs consistent with chronic interstitial fibrosis. A small left pneumothorax is present, unchanged compared to the previous study. A chest tube is present in the left hemithorax. The heart is normal in size. Subcutaneous emphysema is present over the left hemithorax. IMPRESSION: 1. Chronic interstitial fibrosis. 2. Small left pneumothorax, unchanged compared to the previous study. Signed by Thanh Penn MD 04/15/2017 10:51 A
[2017-04-15] MEDS: NS 1,000 ML IV SCH (11:59)
[2017-04-15] MEDS: MONTELUKAST 10 MG TAB PO SCH (21:22)
[2017-04-15] MEDS: METOPROLOL SUCC *XL* 25MG TAB (TopROL *XL*) PO SCH (21:23)
[2017-04-15] MEDS: QUEtiapine FUMARATE 25 MG TAB PO SCH (21:23)
[2017-04-16] MEDS: LEVALBUTEROL 1.25 MG/0.5 ML CONCENTRATE NEB NEB SCH ×4 (01:20→19:50)
[2017-04-16] MEDS: diphenhydrAMINE INJ 50MG/ML VIAL (J1200) IV PRN (02:11)
[2017-04-16 04:00] VITALS: BP 142/86
[2017-04-16] MEDS: KETOROLAC 30 MG/ML VIAL (J1885) IV SCH ×4 (04:08→21:19)
[2017-04-16 04:28] LABS: BASO % 0.3 % (0.0-1.0); EOS # 0.7 K/mm3 (0.0-0.50); EOS % 4.1 % (0.0-3.0); LARGE UNSTAINED CELL # 0.1 K/mm3 (0.0-0.4); LARGE UNSTAINED CELL % 0.9 % (0.0-4.0); LYMPH # 1.6 K/mm3 (1.5-4.5); LYMPH % 9.7 % (24.0-44.0); MEAN CORPUSCULAR HEMOGLOBIN 31.5 pg (27.0-33.0); MEAN CORPUSCULAR HGB CONC 32.5 g/dl (32.0-36.5); MEAN CORPUSCULAR VOLUME 97.1 fl (80.0-96.0); MONO # 0.7 K/mm3 (0.0-0.8); MONO % 4.1 % (0.0-5.0); NEUTROPHILS # 13.3 K/mm3 (1.8-7.7); PLATELET COUNT, AUTOMATED 186 k/mm3 (150-450); WHITE BLOOD COUNT 16.4 K/mm3 (4.0-10.0)
[2017-04-16 04:51] LABS: ANION GAP 6 MEQ/L (8-16); BLOOD UREA NITROGEN 5 MG/DL (7-18); CALCIUM LEVEL 8.3 MG/DL (8.5-10.1); CARBON DIOXIDE LEVEL 31 MEQ/L (21-32); CHLORIDE LEVEL 98 MEQ/L (98-107); CREATININE FOR GFR 0.53 MG/DL (0.55-1.02); GLOMERULAR FILTRATION RATE > 60.0 (>51); GLUCOSE, FASTING 179 MG/DL (70-105); SODIUM LEVEL 135 MEQ/L (136-145)
[2017-04-16] MEDS: hydrOXYzine 25 MG TAB PO SCH ×3 (05:43→21:16)
--- NOTE | 2017-04-16 07:31 | REP ---
PA and lateral chest: Comparison 04/15/2017. Diffusely coarsened interstitium is again noted, unchanged. There is a left thoracotomy tube. No pneumothorax is identified. Subcutaneous emphysema is again noted along the left lateral chest wall, unchanged. Cardiac size is normal. An epidural catheter is again noted. Impression: No significant interval change. Signed by Jayson Seymour MD 04/16/2017 07:22 A
[2017-04-16 08:00] VITALS: BP 98/66
[2017-04-16] MEDS: HumaLOG INSULIN (NovoLOG) PER UNIT SC SCH ×4 (08:39→21:19)
[2017-04-16] MEDS: metFORMIN XR 750 MG TAB PO SCH (08:40)
[2017-04-16] MEDS: PANTOPRAZOLE 40MG TAB (PROTONIX) PO SCH (08:40)
[2017-04-16] MEDS: DOCUSATE SODIUM 100 MG CAP PO SCH ×2 (08:40→21:16)
[2017-04-16] MEDS: HEPARIN SOD (PORCINE) 5000 UNITS/ML VIAL SC SCH ×2 (08:40→21:21)
[2017-04-16] MEDS: VITAMIN D 1,000 INTERNATIONAL UNITS TABLET PO SCH (08:40)
[2017-04-16] MEDS: SERTRALINE 100 MG TAB PO SCH (08:40)
[2017-04-16] MEDS: CALCIUM/VITAMIN D 500 MG TAB PO SCH (08:41)
[2017-04-16] MEDS: MOM 30ML SUSPENSION UDC PO SCH (08:41)
[2017-04-16] MEDS: AZELASTINE 137MCG NASAL SPY 30 ML (ASTELIN) SCH ×2 (09:00→21:16)
[2017-04-16] MEDS: NS 1,000 ML IV SCH (10:45)
[2017-04-16 12:00] VITALS: BP 124/78
[2017-04-16] MEDS ORDERED: FUROSEMIDE 20 MG/2 ML VIAL (J1940) IV ONE (12:15)
--- NOTE | 2017-04-16 12:21 | IPN ---
DATE: 04/16/2017 This is now the third postoperative day for Mrs. Gaytan. She still gets very short of breath with coughing spells. I do not see an air leak in her chest tube today. She is still on 4 liters nasal cannula high flow. Her pain is being well controlled at the epidural and in fact, I have decreased it to 8 from 15. Her vital signs show a T-max of 99.2 with a heart rate that ranges between 90 and 81 in sinus rhythm, respiratory rate 23 to 30 without the use of accessory muscles who is 90-92% saturated on 4 liters nasal cannula at rest. After coughing spells, her saturations can go down to the 70s. Her blood pressure is ranging between 142/86 to 98/66. Her intake and output over the past 24 hours has been recorded at 1915 in and 1355 out for a positivity of 560 mL. She has put 125 mL out of the chest tube and there is no air leak. Weight today is 66 kg compared to 64.3 kg yesterday. On physical examination, her lungs show inspiratory crackles on both sides, both fine and more coarse on the left side. Percussion notes are full to the diaphragm. There is a small amount of lateral subcutaneous emphysema. Cardiac exam is without murmurs, clicks, gallops or rubs. I cannot feel her PMI. S1 and S2 are normal. Abdomen is soft, nontender, bowel sounds are positive. There is no hepatomegaly. No CVA tenderness. She is tympanitic and slightly distended. Extremities show trace pretibial edema. No calf tenderness. No differential swelling of the upper extremities. Skin is warm, dry and perfused without cyanosis or mottling including that of the nail beds and knees. Neck is supple. There is no jugular venous distention. No subcutaneous emphysema. Trachea is midline. Mouth shows her mucous membranes to be pink and moist. Lips and commissures are without lesions. No thrush. Eyes show her pupils to be equal and reactive. Extraocular motions are intact. Sclera anicteric. Neuro shows II through XII intact with gross motor and gross sensation intact. Gait is not tested. Psychiatric shows her to be awake and alert, oriented times three with appropriate mood and affect and conversational. Her white count today is 16.4 up from 14.7 yesterday. Hemoglobin and hematocrit is 12.2 and 37.5 unchanged from yesterday with a platelet count of 186 and stable. Differential shows 81% neutrophils, 9% lymphocytes, 4% monocytes. There are no immature forms. No toxic granulations. Electrolytes are essentially normal today with a BUN and creatinine of 5 and 0.53, glucose of 179 and calcium of 8.3. There are no blood gases on her today. Her chest x-ray shows the lung fully expanded to the chest wall. There is subcutaneous emphysema on the lateral chest wall. She has a lot of bowel gas both large and small bowel. She is passing gas. Chest tube is in good place. Lateral chest tube shows the diaphragms elevated secondary to the bowel gas. I do not see a gastric dilatation however, most of the bowel gas being large bowel. IMPRESSION: 1. Interstitial lung disease of unknown origin. Final pathology pending. 2. Hypoxia. 3. Hypercarbia. 4. Diabetes. 5. Anxiety. 6. Possible reactive airways disease. PLAN AND DISCUSSION: I will take her chest tube off suction today. I will put her on around the clock Reglan for the increased bowel gas. I am decreasing her epidural. She is not using much of the [employer] pump.
[2017-04-16] MEDS: METOCLOPRAMIDE INJ 10MG/2ML VIAL (J2765) IV SCH ×3 (12:27→21:17)
[2017-04-16] MEDS: predniSONE 20 MG TAB PO SCH ×2 (14:18→21:16)
[2017-04-16 16:00] VITALS: BP 148/86
[2017-04-16] MEDS: BUPIVACAINE/NACL BAG 250 ML EPIDURAL SCH (16:30)
[2017-04-16 19:50] VITALS: O2SAT 93
[2017-04-16 20:00] VITALS: BP 140/84
[2017-04-16] MEDS: QUEtiapine FUMARATE 25 MG TAB PO SCH (21:16)
[2017-04-16] MEDS: METOPROLOL SUCC *XL* 25MG TAB (TopROL *XL*) PO SCH (21:16)
[2017-04-16] MEDS: MONTELUKAST 10 MG TAB PO SCH (23:25)
[2017-04-17] VITALS (11 sets, daily range): BP systolic 149–183; BP diastolic 95–111; O2SAT 93
[2017-04-17] MEDS: LEVALBUTEROL 1.25 MG/0.5 ML CONCENTRATE NEB NEB SCH ×4 (02:00→19:45)
[2017-04-17] MEDS: KETOROLAC 30 MG/ML VIAL (J1885) IV SCH ×4 (03:19→21:51)
[2017-04-17] MEDS: METOCLOPRAMIDE INJ 10MG/2ML VIAL (J2765) IV SCH ×3 (03:19→14:26)
[2017-04-17 04:49] LABS: BASO % 0.1 % (0.0-1.0); EOS # 0.1 K/mm3 (0.0-0.50); EOS % 0.6 % (0.0-3.0); LARGE UNSTAINED CELL # 0.1 K/mm3 (0.0-0.4); LARGE UNSTAINED CELL % 0.5 % (0.0-4.0); LYMPH # 1.2 K/mm3 (1.5-4.5); LYMPH % 5.1 % (24.0-44.0); MEAN CORPUSCULAR HEMOGLOBIN 31.6 pg (27.0-33.0); MEAN CORPUSCULAR HGB CONC 33.7 g/dl (32.0-36.5); MEAN CORPUSCULAR VOLUME 93.7 fl (80.0-96.0); MONO # 0.8 K/mm3 (0.0-0.8); MONO % 3.7 % (0.0-5.0); NEUTROPHILS # 18.5 K/mm3 (1.8-7.7); NEUTROPHILS % 89.9 % (36.0-66.0); PLATELET COUNT, AUTOMATED 198 k/mm3 (150-450); RED CELL DISTRIBUTION WIDTH 12.1 % (11.5-14.5); WHITE BLOOD COUNT 20.6 K/mm3 (4.0-10.0)
[2017-04-17 05:08] LABS: ANION GAP 6 MEQ/L (8-16); BLOOD UREA NITROGEN 8 MG/DL (7-18); CALCIUM LEVEL 8.3 MG/DL (8.5-10.1); CARBON DIOXIDE LEVEL 32 MEQ/L (21-32); CHLORIDE LEVEL 96 MEQ/L (98-107); CREATININE FOR GFR 0.49 MG/DL (0.55-1.02); GLOMERULAR FILTRATION RATE > 60.0 (>51); GLUCOSE, FASTING 182 MG/DL (70-105); POTASSIUM SERUM 4.4 MEQ/L (3.5-5.1); SODIUM LEVEL 134 MEQ/L (136-145)
[2017-04-17] MEDS: hydrOXYzine 25 MG TAB PO SCH ×3 (05:48→21:51)
--- NOTE | 2017-04-17 08:15 | REP ---
The PA and lateral chest: Comparisons are 04/16/[address] of 04/10 2017. There is a left thoracotomy tube, similar to the comparison study of 04/16/2017. However, there is a large left pneumothorax with almost complete atelectasis of the entire left lung as an interval change. There is a large volume of subcutaneous emphysema along the left lateral chest wall. There is new diffuse increased density throughout the entire right lung suggestive of a new large right lung infiltrate. The right cardiac margin is obscured in cardiac size cannot be determined. There are dilated bowel loops in the visualized upper abdomen. This is unchanged. There is an epidural catheter, unchanged. Impression: New large left pneumothorax with almost complete atelectasis of the entire left lung. New large right lung infiltrate. Results are telephoned to the intensive care unit nurse and to the attending physician, Dr. Schwartz. Signed by Jayson Seymour MD 04/17/2017 08:06 A
[2017-04-17] MEDS: DOCUSATE SODIUM 100 MG CAP PO SCH ×2 (08:21→21:00)
[2017-04-17] MEDS: MOM 30ML SUSPENSION UDC PO SCH (08:21)
[2017-04-17] MEDS: metFORMIN XR 750 MG TAB PO SCH (08:40)
[2017-04-17] MEDS: SERTRALINE 100 MG TAB PO SCH (08:41)
[2017-04-17] MEDS: predniSONE 20 MG TAB PO SCH (08:41)
[2017-04-17] MEDS: CALCIUM/VITAMIN D 500 MG TAB PO SCH (08:41)
[2017-04-17] MEDS: HEPARIN SOD (PORCINE) 5000 UNITS/ML VIAL SC SCH ×2 (08:42→21:50)
[2017-04-17] MEDS: PANTOPRAZOLE 40MG TAB (PROTONIX) PO SCH (08:42)
[2017-04-17] MEDS: VITAMIN D 1,000 INTERNATIONAL UNITS TABLET PO SCH (08:44)
[2017-04-17] MEDS: AZELASTINE 137MCG NASAL SPY 30 ML (ASTELIN) SCH ×2 (08:45→21:51)
--- NOTE | 2017-04-17 08:47 | REP ---
Follow-up portable chest, 04/17/2017 08:31 a.m., single AP view the patient semi upright: Comparison is the portable chest from 07:56 a.m. earlier today. The left pneumothorax is almost entirely resolved with re-expansion of the left lung. There is a left thoracotomy tube is unchanged. Large amount of subcutaneous emphysema is again noted along the left lateral chest wall, unchanged. There is increased density throughout the right lung compatible with a large right lung infiltrate/atelectasis, similar to the comparison study earlier today. Cardiac size cannot be assessed, the right cardiac margin is obscured. An epidural catheter is again noted. Impression: The left pneumothorax is almost entirely evacuated and the left lung and a is re-expanded. Right lung infiltrate. Signed by Jayson Seymour MD 04/17/2017 08:39 A
[2017-04-17] MEDS: HumaLOG INSULIN (NovoLOG) PER UNIT SC SCH ×4 (09:20→21:00)
--- NOTE | 2017-04-17 11:50 | IPN ---
DATE: 04/17/2017 Mrs. Gaytan'jam oxygen requirement has gone up overnight. Her chest x-ray today show her lung has fallen from the chest wall and now with a pneumothorax. She was therefore placed back on suction. She is feeling more short of breath and she is now up to 8 liters nasal cannula. Hopefully with her lung now re-expanded, her oxygen requirement will come back down. Her vital signs show a maximum temperature (Tmax) of 98.4 with a heart rate that ranges between 98-118 in sinus rhythm, respiratory rate of 26-28 without the use of accessory muscles and who is 96-98% saturated on 8 liters nasal cannula. She does feel air hunger, however. Her blood pressure is ranging between 140/84 to 116/97. Her intake and output over the past 24 hours has been recorded at 1939 in and 2061 out for a negativity of 123 mL. She has put 92 mL out of the chest tube. Surprisingly, there is no air leak after expanding the lung. Weight today is 60.7 kg compared to 65 kg yesterday. On physical examination, her lungs show both coarse and fine rhonchi and rales throughout both inspiration and expiration. Percussion note is full to the diaphragm. Cardiac exam is without murmurs, clicks, gallops, or rubs. I cannot feel her point of maximum impulse. S1, S2 are normal. Abdomen is soft, nontender, slightly distended. There is no hepatomegaly. No costovertebral angle (CVA) tenderness. Extremities show no pretibial edema. No calf tenderness. No differential swelling of the upper extremities. Skin is warm, dry and perfused without cyanosis or mottling including that of the nail beds and knees. Neck is supple. There is no jugular venous distention. No subcutaneous emphysema. Trachea is midline. Mouth shows her mucous membranes to be pink and moist. Lips and commissures are without lesions. There is no thrush. Eyes show her pupils to be equal and reactive. Extraocular motions are intact. Sclera anicteric. Neuro shows II-XII intact with gross motor and gross sensation intact. Gait is not tested. Psychiatric shows her to be awake and alert, oriented times three with appropriate mood and affect and appropriately anxious from air hunger. Her white count today is 20.6 up from 16.4 yesterday. Hemoglobin and hematocrit are 12.7 and 37.7 respectively, unchanged. Platelet count is 198 and stable. Differential shows 89% neutrophils, 5% lymphocytes, 3% monocytes. There are no immature forms. No toxic granulations. Her electrolytes are essentially normal with a total CO2 of 32. BUN and creatinine are 8 and 0.49 with glucose of 182, with calcium of 8.3. There are no blood gases on her today. Her chest x-ray this morning done PA, lateral shows a significant pneumothorax on the left side. There is some increasing subcutaneous emphysema. She still has an increased amount of large bowel gas. It looks a bit better than it did yesterday, however. She may have a pleural effusion on the right side with a positive stripe sign. It is a poor inspiratory film. IMPRESSION: 1. Interstitial lung disease of unknown origin. Final pathology pending. 2. Hypoxia. 3. Hypercarbia. 4. Diabetes. 5. Anxiety. 6. Possible reactive airway disease. 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 PLAN AND DISCUSSION: We have placed her back to suction at 20 cm liters of water. We will continue to support her with oxygen. I am going to obtain a sputum culture. Her white count is up to 20. However, I suspect that is secondary to both stress and to the steroids that we started yesterday. We are going to discontinue the steroids until the air leak stops. We are still awaiting the final pathology. She is therefore committed to at least another 3- 5 days in the hospital. As per my preoperative discussion with her, I will leave her in the hands of the concrete analyst after I leave on . FREDDY
[2017-04-17] MEDS: NS 1,000 ML IV SCH (13:24)
[2017-04-17 15:56] LABS: ABG BASE EXCESS 5.5 (-2.0-2.0); ABG HCO3 33.3 MEQ/L (22.0-26.0); ABG STANDARD HCO3 28.8 MEQ/L (22.0-26.0); ABG TOTAL CO2 35.3 MEQ/L (22.0-29.0); ABG pH (ARTERIAL) 7.337 UNITS (7.350-7.450)
[2017-04-17 15:58] LABS: ABG PARTIAL PRESSURE CO2 63.6 mmHg (35.0-45.0)
[2017-04-17 15:59] LABS: ABG PARTIAL PRESSURE O2 38.5 mmHg (75.0-100.0)
[2017-04-17] MEDS ORDERED: BENZONATATE 100 MG CAP PO PRN (17:30)
[2017-04-17] MEDS: BUPIVACAINE/NACL BAG 250 ML EPIDURAL SCH (18:53)
--- NOTE | 2017-04-17 19:34 | REP ---
Portable chest x-ray: Sitting AP view, 05:24 p.m. film: History: Hypoxemia. Comparison study 04/17/2017 at 8:31 a.m. Findings: A epidural catheter is noted. A left chest tube is seen in place. EKG electrodes are seen. There is fairly extensive extrathoracic soft tissue emphysema along the left chest wall centered about the chest tube insertion site. There is no visible pneumothorax. The lung dang are exposed at a low inspiratory level and diffuse interstitial lung opacities seen bilaterally most pronounced in the perihilar regions. This is unchanged from the earlier film today. Heart is not enlarged. Impression: Extensive bilateral perihilar interstitial infiltrates. No visible pneumothorax. Subcutaneous emphysema left chest wall. Low level of overall inspiration. Signed by Chano Smith MD 04/17/2017 07:38 P
[2017-04-17] MEDS: MONTELUKAST 10 MG TAB PO SCH (21:51)
[2017-04-17] MEDS: METOPROLOL SUCC *XL* 25MG TAB (TopROL *XL*) PO SCH (21:51)
[2017-04-17] MEDS: QUEtiapine FUMARATE 25 MG TAB PO SCH (21:51)
[2017-04-18] VITALS (25 sets, daily range): BP systolic 138–181; BP diastolic 62–105; O2SAT 91
[2017-04-18] MEDS: LEVALBUTEROL 1.25 MG/0.5 ML CONCENTRATE NEB NEB SCH ×4 (02:00→19:20)
[2017-04-18] MEDS ORDERED: HALOPERIDOL 5 MG/ML VIAL (J1630) IV STA (03:39)
[2017-04-18 03:58] LABS: ABG BASE EXCESS 5.2 (-2.0-2.0); ABG PARTIAL PRESSURE CO2 49.9 mmHg (35.0-45.0); ABG TOTAL CO2 32.5 MEQ/L (22.0-29.0); ABG pH (ARTERIAL) 7.411 UNITS (7.350-7.450)
[2017-04-18 03:59] LABS: ABG STANDARD HCO3 29.2 MEQ/L (22.0-26.0)
[2017-04-18] MEDS ORDERED: HALOPERIDOL 5 MG/ML VIAL (J1630) IV PRN (04:00)
[2017-04-18] MEDS: KETOROLAC 30 MG/ML VIAL (J1885) IV SCH ×2 (04:43→10:14)
[2017-04-18 05:08] LABS: BASO % 0.2 % (0.0-1.0); EOS # 0.1 K/mm3 (0.0-0.50); EOS % 0.2 % (0.0-3.0); LARGE UNSTAINED CELL # 0.2 K/mm3 (0.0-0.4); LARGE UNSTAINED CELL % 0.9 % (0.0-4.0); LYMPH # 1.9 K/mm3 (1.5-4.5); LYMPH % 7.1 % (24.0-44.0); MEAN CORPUSCULAR HEMOGLOBIN 32.3 pg (27.0-33.0); MEAN CORPUSCULAR HGB CONC 34.4 g/dl (32.0-36.5); MEAN CORPUSCULAR VOLUME 93.7 fl (80.0-96.0); MONO # 1.7 K/mm3 (0.0-0.8); MONO % 6.4 % (0.0-5.0); NEUTROPHILS # 22.5 K/mm3 (1.8-7.7); NEUTROPHILS % 85.2 % (36.0-66.0); RED CELL DISTRIBUTION WIDTH 11.9 % (11.5-14.5); WHITE BLOOD COUNT 26.5 K/mm3 (4.0-10.0)
[2017-04-18 05:11] LABS: PLATELET COUNT, AUTOMATED 322 k/mm3 (150-450)
[2017-04-18 05:34] LABS: ALBUMIN 3.2 GM/DL (3.2-5.2); ALBUMIN/GLOBULIN RATIO 0.67 (1.00-1.93); ALKALINE PHOSPHATASE 109 U/L (45-117); ALT/SGPT 25 U/L (12-78); AST/SGOT 47 U/L (15-37); BILIRUBIN,TOTAL 0.8 MG/DL (0.2-1.0); BLOOD UREA NITROGEN 6 MG/DL (7-18); CALCIUM LEVEL 8.4 MG/DL (8.5-10.1); CARBON DIOXIDE LEVEL 30 MEQ/L (21-32); CHLORIDE LEVEL 84 MEQ/L (98-107); CHOLESTEROL LEVEL 195 MG/DL (< 200); GLOMERULAR FILTRATION RATE > 60.0 (>51); GLUCOSE, FASTING 190 MG/DL (70-105); TRIGLYCERIDES LEVEL 170 MG/DL (<150)
[2017-04-18 05:47] LABS: ANION GAP 9 MEQ/L (8-16); POTASSIUM SERUM 3.7 MEQ/L (3.5-5.1)
[2017-04-18 05:56] LABS: SODIUM LEVEL 123 MEQ/L (136-145)
[2017-04-18] MEDS: hydrOXYzine 25 MG TAB PO SCH ×4 (06:00→22:00)
[2017-04-18 07:25] LABS: ABG BASE EXCESS 3.6 (-2.0-2.0); ABG HCO3 30.6 MEQ/L (22.0-26.0); ABG PARTIAL PRESSURE O2 68.4 mmHg (75.0-100.0); ABG STANDARD HCO3 27.6 MEQ/L (22.0-26.0); ABG TOTAL CO2 32.3 MEQ/L (22.0-29.0); ABG pH (ARTERIAL) 7.355 UNITS (7.350-7.450)
[2017-04-18] MEDS: HumaLOG INSULIN (NovoLOG) PER UNIT SC SCH ×4 (07:30→21:00)
--- NOTE | 2017-04-18 07:47 | CCN ---
DATE: 04/18/2017, 4 a.m. CRITICAL CARE NOTE: I was called to the patient's bedside in the intensive care unit in light of increasing respiratory rate, anxiety, falling oxygen saturations. The patient became poorly cooperative with treatment, increases and oxygen were necessary. Arterial blood gas was drawn. She has pulled out IVs, pulled off her oxygen and is unable to be reassured or reasoned with. Is expressing paranoid thoughts. A similar episode had happened earlier in the day, albeit less pronounced. Her temperature is 97.4 pulse rate 111, respirations 50, blood pressure 160/47. HEENT: Her pupils are round and react. Oral mucosa is pink. Neck is supple without meningismus. Heart: Sounds are regular, somewhat rapid breath sounds, coarse crepitance bilaterally. There is some subcu air in the left chest wall. Thoracostomy tube is in good position. There is no air leak. Abdomen is soft. Extremities: Cool, mildly diaphoretic. The arterial blood gas returned a pH 7.41, pCO2 49, pO2 99. Chest x-ray image was obtained stat at the bedside and shows decreased lung volumes but no new infiltrates. The primary problem requiring critical attention appears to be psychiatric. The patient's medical physiology is responding normally to time and treatment. We will support her more fully with noninvasive positive pressure ventilation and administer Haldol to facilitate acceptance of needed medical treatments. I have discussed the case with the patient's thoracic surgeon and the nursing staff. 1 hour and 15 minutes spent in provision of bedside critical care and coordination.
[2017-04-18] MEDS: metFORMIN XR 750 MG TAB PO SCH (08:00)
--- NOTE | 2017-04-18 08:55 | REP ---
Portable chest x-ray: Single view. 08:22 a.m. film. History: Reevaluate pneumo. Comparison study: March 19 2017, 02:51 a.m.. Findings: A left chest tube remains in place at the apex. There is extrathoracic soft tissue emphysematous change along the left lateral chest wall as before. There is no discernible pneumothorax. There is advanced diffuse interstitial fibrosis. Relatively low lung volumes again seen bilaterally. Bilateral perihilar opacity persists. Some improvement is noted in aeration on the left on the current exposure. No new infiltrate is seen. Signed by Chano Smith MD 04/18/2017 10:45 A
[2017-04-18] MEDS: SERTRALINE 100 MG TAB PO SCH (09:00)
[2017-04-18] MEDS: DOCUSATE SODIUM 100 MG CAP PO SCH ×2 (09:00→21:34)
[2017-04-18] MEDS: AZELASTINE 137MCG NASAL SPY 30 ML (ASTELIN) SCH ×2 (09:00→21:00)
[2017-04-18] MEDS: PANTOPRAZOLE 40MG TAB (PROTONIX) PO SCH (09:00)
[2017-04-18] MEDS: CALCIUM/VITAMIN D 500 MG TAB PO SCH (09:00)
[2017-04-18] MEDS: MOM 30ML SUSPENSION UDC PO SCH (09:00)
[2017-04-18] MEDS: VITAMIN D 1,000 INTERNATIONAL UNITS TABLET PO SCH (09:00)
[2017-04-18] MEDS: HEPARIN SOD (PORCINE) 5000 UNITS/ML VIAL SC SCH ×2 (09:38→21:34)
[2017-04-18] MEDS ORDERED: CETACAINE SPRAY 20GM (FLOOR STOCK) ONE (09:44)
[2017-04-18 10:28] LABS: ANION GAP 13 MEQ/L (8-16); BLOOD UREA NITROGEN 7 MG/DL (7-18); CALCIUM LEVEL 8.9 MG/DL (8.5-10.1); CARBON DIOXIDE LEVEL 26 MEQ/L (21-32); CHLORIDE LEVEL 85 MEQ/L (98-107); CREATININE FOR GFR 0.45 MG/DL (0.55-1.02); GLOMERULAR FILTRATION RATE > 60.0 (>51); GLUCOSE, FASTING 184 MG/DL (70-105); POTASSIUM SERUM 4.3 MEQ/L (3.5-5.1); SODIUM LEVEL 124 MEQ/L (136-145)
[2017-04-18] MEDS ORDERED: NS 500 ML IV ONE (11:00)
--- NOTE | 2017-04-18 11:55 | REP ---
PORTABLE CHEST X-RAY: Sitting AP view. HISTORY: Increased shortness of breath. Postop. Comparison is made with the 04/17/2017 study done the previous evening. FINDINGS: Epidural catheter and left chest tube remain in place along with EKG monitoring electrodes. There is mild gaseous distension of the left colon noted incidentally in the upper abdomen. Extrathoracic soft tissue emphysema is seen although this is a little less prominent. The left chest tube remains unchanged in position and there is no visible pneumothorax. Lung parenchymal markings remain increased but unchanged. No new infiltrate. Signed by Chano Smith MD 04/18/2017 02:28 P
--- NOTE | 2017-04-18 12:00 | IPN ---
DATE: 04/18/2017 Early this morning around 3 o'clock, both Dr. Ornelas and I came into the hospital after reports of increasing respiratory effort on the patient's part with increased work of breathing. Her blood gases at that time showed her to have a pH of 7.41 with a pCO2 of 49 and pO2 of 99 on 8 liters nasal cannula. Her oxygen requirement had increased. Nonetheless, her respiratory rate was markedly increased up into the 40s and 50s. She was working very hard to breathe with diaphoresis and cold and clamminess of her skin. Blood pressure was satisfactory of 160/96. We both felt that we could not explain her respiratory rate on her psychologic state. Her chest x-ray was essentially unchanged from her chest x-ray the evening before. Her lung was fully expanded to the chest wall and she had all the infiltrative patterns that she had preoperatively from her pulmonary fibrosis. We at that point in time though it was secondary to her underlying anxiety. The labs later in the morning came back with a sodium of 123, however, which may explain some of her confusion and combativeness. Her vital signs today show a T-max of 97.5 with a heart rate that is ranging between 113 and 129. Her blood pressure is ranging between 177/90 to 150/97. She is now on BiPAP that we initiated earlier this morning of 16 over 6 and she is 87-88% saturated on 55% FiO2. Her respiratory rate is now between 50-62. Her intake and output over the past 24 hours has been markedly imbalanced with intake of 1179 and output of 2725. It gives her a total negativity of 1546 mL. That is without diuretics. She has put 15 mL out of the chest tube and there is no air leak. She took in 895 mL in oral yesterday, markedly decreased from the last few days of 2300 to 1500. She weighs 62 kg today compared to 60.7 kg yesterday. On physical examination, she has course rales and rhonchi on both sides during inspiration and expiration. She has a very fast respiratory rate on the BiPAP. Percussion notes are full to the diaphragm. Cardiac exam shows tachycardia without murmurs, clicks, gallops or rubs. I cannot feel her PMI. S1 and S2 are normal. Abdomen is soft, nontender, bowel sounds are positive but hypoactive. Extremities show no pretibial edema. No calf tenderness. No differential swelling of the upper extremities. Skin is warm, dry and perfused without cyanosis or mottling including that of the nail beds and knees. Neck is supple. There is no jugular venous distention. No subcutaneous emphysema. Trachea is midline. Mouth shows her mucous membranes to be pink and moist. Eyes show her pupils to be equal and reactive. Extraocular motor intact. Sclera anicteric. Neuro shows gross motor and gross sensation intact. Cranial nerves II-XII intact. Gait of course not tested. Psychiatric shows her to be awake and able to follow commands. Her blood gases this morning for a pH of 7.35, pCO2 of 56 and a pO2 of 68 with base excess of 3.6. That is on 55% BiPAP. Her white count today is up to 26.5 with hemoglobin and hematocrit of 14.5 and 42.2 up from 12.7 and 37.7 and without secondary hemoconcentration. Platelet count is 322 again probably secondary to hemoconcentration. Differential shows 85% neutrophils, 7% lymphocytes, 6% monocytes. There are no immature forms. No toxic granulations and essentially the differential is unchanged over the last few days. Her chemistries earlier this morning showed a sodium of 123 and repeat showed it to be 124. Potassium is 4.3 with CO2 of 85 and a total CO2 of 26. BUN and creatinine are 7 and 0.45 with glucose of 184 and a calcium of 8.9. Albumin is 3.2. Her troponin is 0.60 with a CK-MB of 8.3 and a total CK of 381. Her BNP is 1230 also increased. EKG shows right bundle branch block. Urine sodium is 607 which while within limits of normal is increased considering the amount of urine she is making and her serum osmolality is 271 which is also low. The preliminary report from [facility] is still not back. Dr. Acosta of pathology is going to call me as soon as we get a preliminary report. IMPRESSION: 1. Interstitial lung disease of unknown origin, followup pathology pending. 2. Hypoxia. 3. Hypercarbia. 4. Diabetes. 5. Anxiety. 6. Possible reactive airways disease. 7. Alveolar pleural fistula seemingly closed. 8. Hyponatremia. 9. Confusion. PLAN AND DISCUSSION: Nephrology has been consulted. I am not sure exactly what is going on with her. We only gave her one dose of steroids at 20 mg by mouth a few days ago and I would find it hard to believe that she has renal insufficiency. Her BUN and creatinine are within normal limits and I would neither think this represents acute tubular necrosis. She has only received one 20 mg dose of Lasix in the last 3 days and that was approximately 3 days ago. I would not consider that over excessive diuretic therapy. She has been on Toradol which might give rise to interstitial nephritis. We will check her TSH level with the possibility of this being hypothyroidism. The TSH level is in fact low at 0.268 which mitigates against hypothyroidism. She does not have signs of congestive heart failure other than the fact that she is very tachycardic. She certainly has an increased Beta Natriuretic Peptide with increased troponin which could be secondary to the tachycardia. At the end of the day, she has severe lung disease which is certainly associated with syndrome of inappropriate secretion of antidiuretic hormone (SIADH). I would expect her, however, to be holding onto water and not having such an increased urine output with being hypervolemic. I do not believe she is hypervolemic. I look forward to nephrology's input into her condition. We will continue to support her in BiPAP. Her x-ray does look better this morning even though done portably as compared to last nights x-ray. She still has interstitial lung disease but with the BiPAP, there is more lung inflation. There is still subcutaneous emphysema which is unchanged.
[2017-04-18] MEDS: NS 1,000 ML IV SCH ×2 (12:15→18:06)
[2017-04-18 12:42] LABS: OSMOLALITY URINE 713 MOSM/KG (500-800)
[2017-04-18 12:55] LABS: ANION GAP 13 MEQ/L (8-16); BLOOD UREA NITROGEN 8 MG/DL (7-18); CALCIUM LEVEL 8.5 MG/DL (8.5-10.1); CARBON DIOXIDE LEVEL 24 MEQ/L (21-32); CHLORIDE LEVEL 88 MEQ/L (98-107); CHOLESTEROL LEVEL 211 MG/DL (<200); CREATININE FOR GFR 0.43 MG/DL (0.55-1.02); GLOMERULAR FILTRATION RATE > 60.0 (>51); GLUCOSE, FASTING 173 MG/DL (70-105); POTASSIUM SERUM 4.8 MEQ/L (3.5-5.1); SODIUM LEVEL 125 MEQ/L (136-145); TRIGLYCERIDES LEVEL 182 MG/DL (<150)
--- NOTE | 2017-04-18 13:44 | CCN ---
DATE: 04/18/2017, time 12 o'clock CRITICAL CARE NOTE: The patient is reevaluated the intensive care unit now on noninvasive ventilation. She had increasing difficulty in the night with oxygen desaturation and psychiatric symptoms, was given a dose of Haldol to prevent self-harm and allow for interventions and did become much more calm with its administration. She is tolerating noninvasive ventilation at this time . Her temperature is 97.5, pulse rate 123, respirations 43, blood pressure 150/87. Input and output for the past 24 hours 1179 in and 2725 out. Since midnight 278 in and 1485 out. At bedside she is ill-appearing. Her oral mucosa is pink. Jugular veins are not distended. The neck is supple. Heart sounds regular. Difficult to hear over breath sounds. Breath sounds are coarse with crepitance bilaterally. There is some subcutaneous air in left chest wall. Left thoracostomy tube is in place draining serous fluid. There is no obvious air leak on the Pleur-Evac and Pleur-Evac is to suction. Abdomen is soft. Extremities are cool, less diaphoretic than earlier in the night. Diagnostic studies: Her white cell count is up to 26.5, hemoglobin 45, hematocrit 42, platelet count 322,000. Differential white cell count shows 85% neutrophils. The sodium is down to 123. Potassium 3.7, chloride 84, CO2 30, BUN 6, creatinine 0.5, glucose 190, calcium is 8.4, phosphorus is 2, bilirubin 0.8, AST 47, ALT 25, LDH 489, CPK 359, albumin is 3.2. Brain natriuretic peptide was 1230. TSH is mildly diminished at 0.26, CPK 381, troponin 0.6. Urine osmolarity is 607. Urine sodium is 133. Chest x-ray shows no new infiltrates. No pneumothorax. Thoracostomy tube is in good position. EKG shows sinus tachycardia with a new right ventricular conduction delay and the lung pathology remains pending. The primary problem requiring critical attention is hypoxemia now on noninvasive positive pressure ventilation. We are able to achieve adequate saturations. She remains very tachypneic. Arterial blood gases are acceptable this morning with a pH of 7.35, pCO2 is up slightly at 56, pO2 68. We will increase her pressure window and continue to monitor her gas exchange. Pulmonary fibrosis. Biopsy has been performed. The pathology remains pending. Pneumothorax resolved. Hypo-osmolar apparently hypovolemic, hyponatremia. Nephrology has been consulted to assist with sorting out the electrolyte abnormality. I suspect syndrome of inappropriate secretion of antidiuretic hormone (SIADH) but the patient is polyuric and BNP is elevated, consideration will be given to cerebral salt wasting as well, however there is no focal neurologic finding. Altered level of consciousness. She responded well to one dose of Haldol in the night in that she became more calm. Additional doses has not been necessary. It is possible that some of her mentation changes could relate to the change in electrolytes particular sodium. The absolute value is not all that low but the change was significant. Will continue close monitoring and use medications only on an absolutely necessary basis. Deep venous thrombosis (DVT) and ulcer prophylaxis are in place. The patient's condition is quite critical. I have reviewed the case with nephrology, surgery and the patient's at bedside. 90 minutes spent in provision of bedside critical care and coordination.
--- NOTE | 2017-04-18 13:58 | CR ---
DATE OF CONSULTATION: 04/18/2017 REQUESTING PHYSICIAN: Magan Ornelas DO CONSULTING PHYSICIAN: Grady Mathis MD REASON FOR CONSULTATION: Management of sudden hyponatremia and polyuria in this critically ill patient. Note, history was obtained from the medical team and from the patient's chart. Patient is not able to provide any reliable history at this time. HISTORY OF PRESENT ILLNESS: Trixie Gaytan is a 57-year-old female with no significant past medical history of any kidney disease. She has chronic interstitial lung disease which is being worked up at this time. She has a history of bronchiectasis, chronic hypoxemia requiring home oxygen, history of anxiety disorder with panic attacks, diabetes mellitus type 2, and multiple other comorbidities as mentioned below. She was admitted this time for lung biopsy, which was done by Dr. Schwartz. Patient came in with a normal sodium level of 136 on 04/13/2017 and sodium had been fluctuating between 134 and 135; however, the patient was making significant amount of urine and she was 1.5 liters negative yesterday, and she is almost 1200 mL negative so far today, and despite that her sodium dropped to 123 on today a.m. labs. Of note, the patient has psychosis during this ICU admission. She is on multiple antipsychotics and antidepressant medications. The patient was given Haldol 5 mg IV stat and she has been started on Haldol 2 mg IV every 2 hours as needed agitation as well. The patient is also getting Toradol 30 mg IV every 6 hours starting from April 13, 2017. When I saw the patient today morning in the ICU, she was on BiPAP in moderate respiratory distress, very tachypneic and diaphoretic. She was unable to provide any reliable review of systems. PAST MEDICAL HISTORY: Patient has a past medical history of diabetes mellitus type 2, anxiety and panic attacks, osteoporosis, pulmonary fibrosis, chronic hypoxemia requiring oxygen. PAST SURGICAL HISTORY: Patient has a history of bilateral cataract surgeries and she got a wedge resection of the left lower lobe on 04/13/2017 using VATS technique. FAMILY HISTORY: No significant family history of end stage renal disease requiring hemodialysis. SOCIAL HISTORY: Patient lives with her . There is no history of illicit drug abuse, alcohol abuse or smoking. CURRENT INPATIENT MEDICATIONS: The patient medications include: - normal saline KVO at 15 mL an hour - Tylenol as needed - [place] as needed - albuterol as needed - Astelin nasal spray - Tessalon Perles - calcium plus vitamin D 500 mg by mouth daily - Benadryl every 4 hours IV as needed itching - Colace 100 mg twice a day - Haldol 5 mg IV was given last night and she is on Haldol 2 mg IV every 2 hours as needed agitation - heparin subcu - Atarax 25 mg every 8 hours - Toradol 30 mg IV every 6 hours, which was stopped today by nm - Xopenex nebulizations every 6 hours - metformin 750 mg by mouth daily - Toprol XL 25 mg by mouth every evening - Milk of Magnesia as needed - Singulair 10 mg by mouth daily - Nubain as needed for pruritus - Zofran as needed - Protonix 40 mg by mouth daily - Seroquel 25 mg at bedtime - Zoloft 100 mg by mouth daily - vitamin D 2000 units by mouth daily REVIEW OF SYSTEMS: Patient was unable to provide any reliable review of systems at this time. However, clinically she is in moderate respiratory distress, currently on BiPAP, tachypneic, tachycardic and diaphoretic. PHYSICAL EXAMINATION: GENERAL: Patient is awake and alert, tachypneic in respiratory distress. VITAL SIGNS: Temperature is 97.1 degrees Fahrenheit, blood pressure is 165/92, pulse is 132, respiratory rate is 48, oxygen saturation is 88% on 55% via BiPAP. INTAKE AND OUTPUT: Urine output recorded as 2.7 liters yesterday, 1475 mL so far today. Since overnight, patient is 1.5 liters negative yesterday, 1.2 liters negative so far today. HEAD/NECK: Extraocular muscles intact. Pupils equally round and reactive to light. Mucous membranes are moist. Patient is wearing BiPAP. Neck is supple. There is no significant elevation of jugular venous distention (JVD). CARDIOVASCULAR: S1, S2, tachycardia. No murmur, rub or gallop. RESPIRATORY: Patient has diffuse rhonchi and crepitations all over the lungs because of pulmonary fibrosis. She has chest tube on the left side. ABDOMEN: Soft. Positive bowel sounds. Nontender. No ascites. No organomegaly. GENITOURINARY (): Patient has an indwelling Ortez catheter with light yellow urine in the bag. MUSCULOSKELETAL: Extremities have no edema. Pulses are 2+. There is significant clubbing of fingernails and toenails. OPTICIAN MANAGER: No focal deficit at this time, but the patient is agitated and tachypneic. PSYCH: Agitation and anxiety at this time. SKIN: No rashes or ulcers. LAB REVIEW: CBC showed a WBC of 26.5, hemoglobin 14.5, platelets are 322. Urinalysis showed 3+ protein, 2+ blood. Urine had almost 58 RBCs. Urine random osmolarity was 607. Random creatinine was 32.2. Random sodium is 133. ABG done today morning showed a pH of 7.35, pCO2 of 56, pO2 of 68.4, bicarb is 22.3, oxygen saturation is 93.5. BMP done today morning showed sodium 124, potassium 4.3, chloride 85, bicarb 26, BUN 7, creatinine 0.4, serum osmolarity is 271, calcium is 8.9, BNP was 1230, TSH 0.26. Lipid panel is pending. Microbiology: Sputum gram stain and culture is pending. IMAGING: Chest x-ray done today morning showed left sided chest tube. There was advanced diffuse interstitial fibrosis. ASSESSMENT: 57-year-old female with interstitial lung disease of unknown etiology currently being worked up. Biopsy result is pending. Currently with hypoxemic and hypercapnic respiratory failure requiring BiPAP. Nephrology service was called for help and management of sudden hyponatremia and polyuria. PLAN: 1. Hypotonic hyponatremia with high urine osmolarity and high urine sodium in the setting of polyuria. It is very difficult to assess the volume status of this patient, but clinically looking at the patient's intake and output for the last three days, it looks like the patient might be slightly volume depleted. Given the possibility of hypovolemia triggering SIADH release in combination with the antipsychotic medications, I am going to try a small bolus of normal saline 500 mL and repeat a BMP. If the IV fluid administration helps improve the sodium then I would start gentle IV hydration with normal saline. If the sodium level does not improve with the normal saline bolus, then I would treat this patient as SIADH, especially given the patient was given IV Haldol and started on as needed Haldol every 2 hours and she suddenly dropped her sodium from 134 to 123 this morning. I am going to hold the Haldol as well. In addition to holding the Haldol, I am stopping he Toradol as well, which can cause interstitial nephritis or tubular injury. Zoloft in some cases can also cause SIADH but the patient has been receiving Zoloft since April 13 and she did not have any problems with that and the patient already refused today morning dose of Zoloft anyways. So, I would continue to monitor the patient's BMP every 4 hours for now. Continue to monitor urine osmolarity and urine sodium every 4 hours. TSH level is slightly low. T4 and T3 are pending. Lipid panel is pending and a.m. cortisol level is also pending. 2. Hypoxic and hypercapnic respiratory failure. Patient is currently on BiPAP. She is very tachypneic and diaphoretic, in moderate to severe respiratory distress. If the patient's respiratory status does not improve, she might need to be intubated. The rest of the management is as per pulmonary service. 3. Psychosis and agitation. Patient was started on Haldol and sodium suddenly drop overnight. I would recommend against using the Haldol at this time. If needed, patient can be given Ativan for agitation. It is okay to continue the Seroquel and Zoloft at this time. 4. Proteinuria and hematuria. It might be secondary to the use of Toradol at this time; however, given the history of interstitial lung disease of unknown etiology and presence of proteinuria and hematuria, I am going to do a spot urine to quantify the urine proteins and I am also going to repeat LINDA, ANCA panels, compliment 3, compliment 4, and anti double stranded DNA antibodies and antiglomerular base membrane antibodies as well. 5. Diabetes mellitus type 2. Okay to continue the insulin sliding scale coverage and long acting insulin but given the patient's severe sickness at this time, and risk of lactic acidosis, I am going to stop the metformin at this time. Thank you for involving us in the care of this patient. We shall be happy to follow the patient along with you tomorrow morning. The plan of care was discussed with the critical care team, Dr. Ornelas. Serial labs will be monitored by me and I will be called for further recommendations once the results come back.
[2017-04-18 16:06] LABS: COMPLEMENT C4 35.7 MG/DL (10-40)
[2017-04-18 16:09] LABS: ANION GAP 13 MEQ/L (8-16); BLOOD UREA NITROGEN 10 MG/DL (7-18); CALCIUM LEVEL 8.3 MG/DL (8.5-10.1); CARBON DIOXIDE LEVEL 25 MEQ/L (21-32); CHLORIDE LEVEL 87 MEQ/L (98-107); CREATININE FOR GFR 0.54 MG/DL (0.55-1.02); GLOMERULAR FILTRATION RATE > 60.0 (>51); GLUCOSE, FASTING 189 MG/DL (70-105); POTASSIUM SERUM 4.4 MEQ/L (3.5-5.1); SODIUM LEVEL 125 MEQ/L (136-145)
[2017-04-18 17:42] LABS: OSMOLALITY URINE 737 MOSM/KG (500-800)
[2017-04-18] MEDS ORDERED: TOLVAPTAN 15 MG TAB (SAMSCA) PO ONE (19:00)
--- NOTE | 2017-04-18 19:58 | ECGEPIP ---
Stationary ECG Study [facility] Test Date: 2017-04-18 Pat Name: CÉSAR GASTELUM Department: Room: [place] [address] Gender: F Envelope Patternmaker: : 1960 Requested By: DERICK STEVENSON Order Number: [id number] Reading MD: Leonardo Fernandez Measurements Intervals [place] Rate: 125 P: 62 MS: 169 QRS: -27 QRSD: 117 T: -19 QT: 314 QTc: 454 Interpretive Statements Sinus tachycardia. Left axis deviation. Prominent voltage in aVL; LVH by Juan criteria. Incomplete RBBB with slow precordial R-wave progression, and persistent S waves in V5 and V6; body habitus versus pulmonary disease. Nonspecific ST/T-wave abnormalities new with sinus tachycardia from prior tracing 04/11/17. Clinical correlation advised. Electronically Signed On 04-18-2017 19:57:55 EDT by Leonardo Fernandez
--- NOTE | 2017-04-18 20:05 | ECGEPIP ---
Stationary ECG Study [facility] Test Date: 2017-04-18 Pat Name: CÉSAR GASTELUM Department: Room: [place] [address] Gender: F Pleater: NOA : 1960 Requested By: DERICK STEVENSON Order Number: [id number] Reading MD: Leonardo Fernandez Measurements Intervals [place] Rate: 133 P: 47 NH: 131 QRS: -22 QRSD: 124 T: -16 QT: 312 QTc: 465 Interpretive Statements Persistent sinus tachycardia. Left axis deviation. Incomplete RBBB with slow precordial R-wave progression and persistent S waves in V5 and V6. No change from earlier this same day. Clinical correlation advised Electronically Signed On 04-18-2017 20:05:01 EDT by Leonardo Fernandez
[2017-04-18] MEDS: QUEtiapine FUMARATE 25 MG TAB PO SCH ×2 (21:00→21:33)
[2017-04-18] MEDS: MONTELUKAST 10 MG TAB PO SCH ×2 (21:00→21:33)
[2017-04-18] MEDS: METOPROLOL SUCC *XL* 25MG TAB (TopROL *XL*) PO SCH (21:33)
[2017-04-18 21:37] LABS: ANION GAP 9 MEQ/L (8-16); BLOOD UREA NITROGEN 12 MG/DL (7-18); CALCIUM LEVEL 8.2 MG/DL (8.5-10.1); CARBON DIOXIDE LEVEL 28 MEQ/L (21-32); CHLORIDE LEVEL 90 MEQ/L (98-107); CREATININE FOR GFR 0.53 MG/DL (0.55-1.02); GLOMERULAR FILTRATION RATE > 60.0 (>51); GLUCOSE, FASTING 213 MG/DL (70-105); SODIUM LEVEL 127 MEQ/L (136-145)
[2017-04-18 21:37] LABS: OSMOLALITY URINE 697 MOSM/KG (500-800)
[2017-04-19] VITALS (16 sets, daily range): BP systolic 123–188; BP diastolic 81–111; O2SAT 86–90
[2017-04-19] MEDS: QUEtiapine FUMARATE 25 MG TAB PO SCH (00:14)
[2017-04-19 00:49] LABS: ANION GAP 8 MEQ/L (8-16); BLOOD UREA NITROGEN 11 MG/DL (7-18); CALCIUM LEVEL 8.6 MG/DL (8.5-10.1); CARBON DIOXIDE LEVEL 28 MEQ/L (21-32); CHLORIDE LEVEL 94 MEQ/L (98-107); GLOMERULAR FILTRATION RATE > 60.0 (>51); GLUCOSE, FASTING 186 MG/DL (70-105); POTASSIUM SERUM 4.2 MEQ/L (3.5-5.1); SODIUM LEVEL 130 MEQ/L (136-145)
[2017-04-19] MEDS: LEVALBUTEROL 1.25 MG/0.5 ML CONCENTRATE NEB NEB SCH ×4 (00:58→19:30)
[2017-04-19 02:45] LABS: OSMOLALITY URINE 524 MOSM/KG (500-800)
[2017-04-19 04:50] LABS: OSMOLALITY URINE 640 MOSM/KG (500-800)
[2017-04-19 04:50] LABS: BASO % 0.1 % (0.0-1.0); EOS # 0.1 K/mm3 (0.0-0.50); EOS % 0.2 % (0.0-3.0); LARGE UNSTAINED CELL # 0.2 K/mm3 (0.0-0.4); LARGE UNSTAINED CELL % 0.6 % (0.0-4.0); LYMPH # 0.9 K/mm3 (1.5-4.5); LYMPH % 2.3 % (24.0-44.0); MEAN CORPUSCULAR HEMOGLOBIN 31.2 pg (27.0-33.0); MEAN CORPUSCULAR HGB CONC 33.4 g/dl (32.0-36.5); MEAN CORPUSCULAR VOLUME 93.5 fl (80.0-96.0); MONO % 6.6 % (0.0-5.0); NEUTROPHILS # 27.8 K/mm3 (1.8-7.7); NEUTROPHILS % 90.2 % (36.0-66.0); PLATELET COUNT, AUTOMATED 282 k/mm3 (150-450); RED CELL DISTRIBUTION WIDTH 12.3 % (11.5-14.5)
[2017-04-19 04:53] LABS: WHITE BLOOD COUNT 30.8 K/mm3 (4.0-10.0)
[2017-04-19 05:04] LABS: ALBUMIN 2.8 GM/DL (3.2-5.2); ALBUMIN/GLOBULIN RATIO 0.64 (1.00-1.93); ALKALINE PHOSPHATASE 123 U/L (45-117); ALT/SGPT 24 U/L (12-78); ANION GAP 11 MEQ/L (8-16); AST/SGOT 44 U/L (15-37); BILIRUBIN,TOTAL 0.5 MG/DL (0.2-1.0); BLOOD UREA NITROGEN 11 MG/DL (7-18); CALCIUM LEVEL 8.2 MG/DL (8.5-10.1); CARBON DIOXIDE LEVEL 27 MEQ/L (21-32); CHLORIDE LEVEL 95 MEQ/L (98-107); CHOLESTEROL LEVEL 190 MG/DL (< 200); GLOMERULAR FILTRATION RATE > 60.0 (>51); GLUCOSE, FASTING 170 MG/DL (70-105); PHOSPHORUS LEVEL 1.6 MG/DL (2.5-4.9); POTASSIUM SERUM 4.3 MEQ/L (3.5-5.1); SODIUM LEVEL 133 MEQ/L (136-145); TOTAL PROTEIN 7.2 GM/DL (6.4-8.2); TRIGLYCERIDES LEVEL 145 MG/DL (<150)
[2017-04-19] MEDS: hydrOXYzine 25 MG TAB PO SCH ×3 (06:00→22:00)
[2017-04-19 06:33] LABS: ABG BASE EXCESS -1.8 (-2.0-2.0); ABG HCO3 25.8 MEQ/L (22.0-26.0); ABG PARTIAL PRESSURE CO2 55.3 mmHg (35.0-45.0); ABG PARTIAL PRESSURE O2 81.3 mmHg (75.0-100.0); ABG STANDARD HCO3 22.9 MEQ/L (22.0-26.0); ABG TOTAL CO2 27.5 MEQ/L (22.0-29.0); ABG pH (ARTERIAL) 7.286 UNITS (7.350-7.450)
--- NOTE | 2017-04-19 06:40 | PHACANCOPD ---
PHARMACY VANCOMYCIN DOSING Pt Demographics Demographics Patient Age:57 , Weight:58.400 , Gender: female Adjusted Body Weight Date: 04/19/17, Adjusted Body Weight: [52.1] Kg Events Past 24 Hours Events Past 24 Hours: NO: Dialysis, Diuretic Therapy, Change in CrCl, Fever, Elevation in WBC, Pending Diagnostics, Pending Procedures, Other Vancomycin Vancomycin Target Ranges: 10-20 mcg/ml Vancomycin Load Y/N: Yes Load Dose Date Time Vancomycin Load Dose: 1000MG Date: 04-19 Time: 629 Vancomycin Dose Date: 04/19/17. Current Vancomycin Dose: [750MG Q8H] Intermittent Dosing?: No Labs Labs Item Value Date Time White Blood Count 30.8 K/mm3 *H 04/19/17 0420 Creatinine 0.40 MG/DL L 04/19/17 0420 Blood Urea Nitrogen 11 MG/DL 04/19/17 0420 Vital Signs Label Value Date Time Patient Temperature 97.5 degrees F 04/19/17 0400 Temperature Source Temporal 04/19/17 0400 Micro Microbiology 04/17/17 Gram Stain - Final, Resulted 04/17/17 Sputum Culture, Resulted Pending Creatinine Clearance Date:04/19/17. Creatinine Clearance: [107?]. Pending Labs Trough 07-20 @2300 Assessment and Plan Maintaining Current Dose?: Yes Reason for dose change: No Dose Change Pharmacist Note Pharmacist Note Date: 04/19/17. Pharmacist note:Dosed at 750mg q8h with a trough ordered for 07- 20 @2300. Will continue to monitor and make adjustments as needed. ERMELINDA [facility] Apr 19, 2017 06:40
[2017-04-19] MEDS ORDERED: VANCOMYCIN HCL 1,000 MG, VIAL MATE ADAPTER 1 EACH in D5W 250 ML IV ONE (06:45)
[2017-04-19] MEDS: PIPERACILLIN/TAZOBACTAM SOD 3.375 GM in D5W MINI-BAG PLUS 50 ML IV SCH ×3 (08:22→22:06)
[2017-04-19] MEDS: SERTRALINE 100 MG TAB PO SCH (08:22)
[2017-04-19] MEDS: HumaLOG INSULIN (NovoLOG) PER UNIT SC SCH ×4 (08:23→21:00)
--- NOTE | 2017-04-19 08:28 | REP ---
Portable chest, 07:03 a.m., single AP view, the patient semi upright: Comparison is 2016. The left chest tube remains in satisfactory location with the tip in the apex of the left hemithorax. There is a tiny sliver of pneumothorax over the apex of the left lung as an interval change. There is significantly increased radiodensity throughout the lung dang bilaterally, nonspecific. This could be from an incomplete inspiratory effort or could represent progressive bilateral infiltrates. Cardiac size is borderline enlarged, unchanged. Impression: Tiny left apical pneumothorax. Increase in radiodensity throughout the lung dang bilaterally. The subcutaneous emphysema along the left lateral chest wall has significantly decreased. Signed by Jayson Seymour MD 04/19/2017 08:19 A
--- NOTE | 2017-04-19 08:49 | IPN ---
DATE: 04/19/2017 This is now the sixth postoperative day for Mrs. Gaytan. She continues to deteriorate so far as her lung function is concerned. She is now on BiPAP and an FiO2 of 90%. She is not responsive. I did receive a verbal report from pathology yesterday. The preliminary diagnosis from [place] is usual interstitial pneumonia with patchy and diffuse alveolar damage. This probably the worst diagnosis that we could entertain as it falls into the category of idiopathic pulmonary fibrosis. I have informed Mr. Gaytan of the diagnosis. See discussion below. Her vital signs show a T-max of 97.5 with a heart rate that is now ranging between 136 and 119 in a sinus tachycardia, with a respiratory rate of 48-55 on BiPAP. Her blood pressure is 162/92 to 150/96. On the BiPAP on 90% she is 86-91% saturated. Her intake and output the past 24 hours has been recorded as 1373 in and 2395 out for a negativity of 1022 mL. She has put 25 mL out the chest tube and there is no air leak. Weight today is 58.4 kg compared to 62 kg yesterday. On physical examination, paradoxically her lungs sound much better today. There is equal air entry on both sides. The lung sounds are harsh, but I do not hear crackles on the BiPAP. Percussion note is full to the diaphragm anterolaterally. Cardiac exam shows tachycardia without murmurs, clicks, gallops or rubs. I cannot feel her PMI. S1 and S2 are normal. Abdomen is soft, nontender. Bowel sounds are positive, but very hypoactive. Her extremities show no pretibial edema. I cannot elicit calf tenderness, but she is not responsive. Neck is supple. No jugular venous distention (JVD). No subcutaneous emphysema. Trachea is midline. Mouth shows her mucous membranes to be pink and moist. She is on BiPAP and I have not been able to take a thorough look into her hypopharynx. Eyes show her pupils to be equal and reactive. Extraocular motors intact. Sclera nonicteric. Neuro shows her to be unresponsive, although the nurses tell me that she is moving extremities. Psychiatric shows her to be unresponsive. Her white count today is up to 30.8 with a hemoglobin and hematocrit of 13.6 and 40.7 respectively. Platelet count is 282 and her differential shows 98% neutrophils, 2% lymphocytes, and 6% monocytes. There are still no immature forms, no toxic granulations. Her electrolytes are markedly improved with a sodium of 133 and potassium of 4.3. BUN and creatinine are 11 and 0.4 with a glucose of 170 and a calcium of 8.2 and corresponding albumin of 2.8. Her liver function tests show an AST and ALT of 44 and 24, with the AST being minimally elevated. Her chest x-ray done portably shows diffuse interstitial markings, particularly more on the right side today. Subcutaneous emphysema is much less. The chest tube is in good place at the apex of the lung. Bowel gas pattern is improved. I appreciate Dr. Mathis's input and nephrology consult. Her electrolytes have certainly improved with his administration of normal saline. Her epidural has been discontinued. IMPRESSION: 1. Usual interstitial pneumonia with diffuse alveolar damage, clinically equivalent to idiopathic pulmonary fibrosis. 2. Hypoxia. 3. Hypercarbia. 4. Diabetes. 5. Anxiety. 6. Possible reactive airways disease. 7. Alveolar pleural fistula resolved. 8. Hyponatremia, resolving. 9. Confusion. PLAN AND DISCUSSION: I have informed Mr. Gaytan of the patient's diagnosis. Our hope was that in the event that she did have idiopathic pulmonary fibrosis that we could potentially get her a lung transplantation. I am not sure that is going to be possible now that she is accelerating and not doing well. Nonetheless, she remains on BiPAP. Her kidney's are functioning and her hyponatremia is resolving. From a surgical perspective, her only remaining issue is the chest tube. There is no air leak today and there was not one yesterday. I would go very slowly with removing her chest tube. My recommendation is that if there is still no air leak tomorrow to place the chest tube on underwater seal for 24 hours and then if there is still no air leak and the lung remains up, to clamp the chest tube for another 24 hours to make sure that the lung is going to stay up. After that, the chest tube can be removed. I will return on May 03. Her problems are essentially are medical in nature and pulmonology will take over her care. This was a minimally invasive lung biopsy and her suture tags can be removed in a couple of weeks should she survive.
[2017-04-19 09:00] LABS: ANION GAP 12 MEQ/L (8-16); BLOOD UREA NITROGEN 13 MG/DL (7-18); CALCIUM LEVEL 7.9 MG/DL (8.5-10.1); CARBON DIOXIDE LEVEL 26 MEQ/L (21-32); CHLORIDE LEVEL 94 MEQ/L (98-107); CREATININE FOR GFR 0.45 MG/DL (0.55-1.02); GLOMERULAR FILTRATION RATE > 60.0 (>51); GLUCOSE, FASTING 238 MG/DL (70-105); POTASSIUM SERUM 4.6 MEQ/L (3.5-5.1); SODIUM LEVEL 132 MEQ/L (136-145)
[2017-04-19] MEDS: PANTOPRAZOLE 40MG TAB (PROTONIX) PO SCH (09:00)
[2017-04-19] MEDS: VITAMIN D 1,000 INTERNATIONAL UNITS TABLET PO SCH (09:00)
[2017-04-19] MEDS: DOCUSATE SODIUM 100 MG CAP PO SCH ×2 (09:00→21:00)
[2017-04-19] MEDS: MOM 30ML SUSPENSION UDC PO SCH (09:00)
[2017-04-19] MEDS: AZELASTINE 137MCG NASAL SPY 30 ML (ASTELIN) SCH ×2 (09:00→21:00)
[2017-04-19] MEDS: CALCIUM/VITAMIN D 500 MG TAB PO SCH (09:00)
[2017-04-19] MEDS ORDERED: TOLVAPTAN 15 MG TAB (SAMSCA) PO ONE (09:15)
[2017-04-19] MEDS: NS 1,000 ML IV SCH (09:53)
[2017-04-19] MEDS: HEPARIN SOD (PORCINE) 5000 UNITS/ML VIAL SC SCH ×2 (09:53→22:06)
[2017-04-19] MEDS ORDERED: NS IV ONE (10:00)
[2017-04-19] MEDS ORDERED: SODIUM PHOSPHATE IV ONE (10:00)
[2017-04-19] MEDS ORDERED: VANCOMYCIN HCL 750 MG, VIAL MATE ADAPTER 1 EACH in D5W 250 ML IV SCH (16:00)
[2017-04-19] MEDS ORDERED: VANCOMYCIN HCL 750 MG, VIAL MATE ADAPTER 1 EACH in NS 250 ML IV SCH ×2 (16:00→18:00)
--- NOTE | 2017-04-19 16:06 | CCN ---
DATE: 04/19/2017 CRITICAL CARE NOTE: The patient is seen in the intensive care unit critically ill on noninvasive ventilatory support. She required reevaluation in the middle of the night for falling oxygen saturations and we adjusted her bilevel pressures up some with reasonable response. She is a bit more alert this morning, following commands, less anxious. Her temperature is 97, pulse rate 130, respirations 40-50, blood pressure 162/92. Intake and output for the past 24 hours: 1373 in, 2395 out. Since midnight 490 in, 519 out. At bedside she is ill-appearing, very tachypneic. Facial bilevel pressure therapy mask in place with a good seal. Neck is supple. Heart sounds regular, somewhat rapid. Breath sounds coarse, crepitant throughout. The thoracostomy site is clean. There is no air leak in the chest tube which is now the 20 cm suction. Chest is symmetric. Moves with accessory muscle engagement. Abdomen is soft. Extremities are cool. Pulses diminished but palpable. DIAGNOSTIC STUDIES: Her sodium is up to 133, potassium is 4.3, chloride 95, CO2 27, BUN 11, creatinine 0.4, glucose 170, white cell count is up to 30.8, hemoglobin 13.6, hematocrit 40.7, platelet count 282,000. Arterial blood gases showed a pH 7.29, pCO2 55, pO2 81, troponin is down to 0.37. Chest x-ray shows increased infiltrates. Sputum gram stain showed moderate white cells, few gram-positive cocci. On medications review, she was started this morning on vancomycin and Zosyn. She has subcutaneous heparin 5000 every 12 hours, Atarax 25 every 8 hours, Toprol 25 mg a day, Singulair 10 mg a day, Seroquel 25 mg a day, Zoloft 100 mg a day. The primary problem requiring critical attention is acute respiratory failure. The patient is tolerating noninvasive ventilatory support at this point. Oxygen requirement is however increasing. Her respiratory failure is felt related to progression of her underlying interstitial lung disease complicated by anxiety and a rapid respiratory pattern, also partially related to electrolyte abnormalities. With correction of the electrolyte abnormalities, her respiratory pattern is slightly improved as is her mentation. We will continue maximal noninvasive support, attempting to avoid intubation as the complications given her underlying lung disease would be great. Pulmonary fibrosis. The informal verbal report from pathology is of idiopathic pulmonary fibrosis, the formal pathology report is pending. Prognosis with this condition is particularly poor and her current presentation would suggest rapidly progressive fibrosis. Left pneumothorax, resolved. There is some residual subcutaneous air on the chest x-ray and on physical exam there is no air leak in the chest tube, it is to 20 cm of suction. Hyponatremia. I appreciate the assistance of nephrology. The patient was given some IV fluids and a dose of tolvaptan with good result. Her sodium is much better this morning. If a component of her problem was related to cerebral edema from hyponatremia, this may explain her improvement and mentation. DVT prophylaxis being addressed with subcutaneous heparin. Ulcer prophylaxis being addressed with Protonix. I have had multiple conversations with the patient's at bedside. He understands that her prognosis is very poor and that we are making every attempt to avoid intubation and mechanical ventilatory support at this point due to its likely complications. I have reviewed the case with thoracic surgery as well. 1 hour and 18 minutes was spent in the provision of bedside critical care and coordination.
[2017-04-19] MEDS: VANCOMYCIN HCL 750 MG, VIAL MATE ADAPTER 1 EACH in NS 250 ML IV SCH (20:41)
[2017-04-19] MEDS: MONTELUKAST 10 MG TAB PO SCH (21:00)
[2017-04-19] MEDS: METOPROLOL SUCC *XL* 25MG TAB (TopROL *XL*) PO SCH (21:00)
[2017-04-20] VITALS (60 sets, daily range): BP systolic 87–167; BP diastolic 45–90; O2SAT 89–92
[2017-04-20] MEDS: MORPHINE 1MG/ML IN 0.9% NACL 100ML IV BAG IV PRN (00:53)
[2017-04-20] MEDS: LEVALBUTEROL 1.25 MG/0.5 ML CONCENTRATE NEB NEB SCH ×4 (01:21→19:21)
[2017-04-20] MEDS: PIPERACILLIN/TAZOBACTAM SOD 3.375 GM in D5W MINI-BAG PLUS 50 ML IV SCH (03:19)
[2017-04-20] MEDS: VANCOMYCIN HCL 750 MG, VIAL MATE ADAPTER 1 EACH in NS 250 ML IV SCH (04:50)
[2017-04-20 05:10] LABS: ALBUMIN 2.5 GM/DL (3.2-5.2); ALBUMIN/GLOBULIN RATIO 0.56 (1.00-1.93); ALKALINE PHOSPHATASE 121 U/L (45-117); ALT/SGPT 22 U/L (12-78); ANION GAP 10 MEQ/L (8-16); AST/SGOT 34 U/L (15-37); BILIRUBIN,TOTAL 0.5 MG/DL (0.2-1.0); BLOOD UREA NITROGEN 22 MG/DL (7-18); CALCIUM LEVEL 9.1 MG/DL (8.5-10.1); CARBON DIOXIDE LEVEL 29 MEQ/L (21-32); CHLORIDE LEVEL 100 MEQ/L (98-107); CHOLESTEROL LEVEL 195 MG/DL (< 200); CREATININE FOR GFR 0.54 MG/DL (0.55-1.02); GLOMERULAR FILTRATION RATE > 60.0 (>51); GLUCOSE, FASTING 189 MG/DL (70-105); PHOSPHORUS LEVEL 2.9 MG/DL (2.5-4.9); SODIUM LEVEL 139 MEQ/L (136-145); TRIGLYCERIDES LEVEL 169 MG/DL (<150)
[2017-04-20 05:27] LABS: ABG BASE EXCESS -3.9 (-2.0-2.0); ABG HCO3 25.6 MEQ/L (22.0-26.0); ABG PARTIAL PRESSURE O2 66.1 mmHg (75.0-100.0); ABG STANDARD HCO3 21.1 MEQ/L (22.0-26.0); ABG TOTAL CO2 27.7 MEQ/L (22.0-29.0)
[2017-04-20 05:29] LABS: ABG pH (ARTERIAL) 7.191 UNITS (7.350-7.450)
[2017-04-20 05:30] LABS: ABG PARTIAL PRESSURE CO2 68.4 mmHg (35.0-45.0)
[2017-04-20 05:38] LABS: BASO % 0.2 % (0.0-1.0); LARGE UNSTAINED CELL # 0.2 K/mm3 (0.0-0.4); LARGE UNSTAINED CELL % 0.7 % (0.0-4.0); LYMPH # 0.7 K/mm3 (1.5-4.5); LYMPH % 2.2 % (24.0-44.0); MEAN CORPUSCULAR HEMOGLOBIN 31.8 pg (27.0-33.0); MEAN CORPUSCULAR HGB CONC 33.1 g/dl (32.0-36.5); MONO # 1.8 K/mm3 (0.0-0.8); MONO % 6.1 % (0.0-5.0); NEUTROPHILS # 26.8 K/mm3 (1.8-7.7); NEUTROPHILS % 90.7 % (36.0-66.0); PLATELET COUNT, AUTOMATED 317 k/mm3 (150-450); RED CELL DISTRIBUTION WIDTH 12.5 % (11.5-14.5); WHITE BLOOD COUNT 29.6 K/mm3 (4.0-10.0)
[2017-04-20] MEDS: hydrOXYzine 25 MG TAB PO SCH ×3 (06:00→21:22)
[2017-04-20 06:57] LABS: ABG BASE EXCESS -0.4 (-2.0-2.0); ABG HCO3 29.7 MEQ/L (22.0-26.0); ABG PARTIAL PRESSURE O2 73.4 mmHg (75.0-100.0); ABG STANDARD HCO3 24.1 MEQ/L (22.0-26.0); ABG TOTAL CO2 32.1 MEQ/L (22.0-29.0)
[2017-04-20 06:59] LABS: ABG pH (ARTERIAL) 7.198 UNITS (7.350-7.450)
[2017-04-20 07:00] LABS: ABG PARTIAL PRESSURE CO2 78.2 mmHg (35.0-45.0)
[2017-04-20] MEDS: HumaLOG INSULIN (NovoLOG) PER UNIT SC SCH ×4 (07:30→23:49)
--- NOTE | 2017-04-20 07:30 | REP ---
Portable chest, single AP view, the patient semi upright, cm at the 07:13 a.m.: Comparison is 04/19/2017. The left chest tube tip has retracted from the apex of the left hemithorax slightly. There is a recurrent left pneumothorax surrounding the entire left lung and there is total atelectasis of the left lung. There is increased radiodensity throughout the entire right lung as previously, suggestive of a larger right lung infiltrate. Cardiac size remains normal. Impression: Recurrent large left pneumothorax surrounding the entire left lung. Slight retraction of the left thoracotomy tube. Large right lung infiltrate. Signed by Jayson Seymour MD 04/20/2017 07:21 A
--- NOTE | 2017-04-20 08:34 | CCN ---
DATE: 04/20/2017 Critical care time was 1 hour 48 minutes. I was called urgently this morning at 5:00 a.m. for worsening arterial blood gas , demonstrating worsening hypoxia and hypercarbia. On my arrival, I repeated a chest x-ray, which showed a small pneumothorax on the left, which was not present yesterday. Prior to my arrival, I did give instructions to increase inspiratory pressure on the BiPap to help with the hypercarbia. Apparently the patient had not been responsive for the majority of the night. On my arrival, she was not responsive to voice. She is tachypneic, tachycardiac and in severe respiratory distress. At bedside this morning, I did have a discussion with her in regards to further therapy. I offered comfort measures only versus aggressive therapy with intubation and high dose steroids, although I believe this will unlikely be helpful in the long run. He states he wishes to discuss this with his brother- in-law, and will return with his decision. In the meantime, I increased the suction to negative 40 and we will repeat a chest x-ray. If the pneumothorax is still persistent and the patient's wishes aggressive care, we will place another chest tube. Overall, the patient continues to decline with the suspicion of an idiopathic pulmonary fibrosis (IPF) flare. PHYSICAL EXAMINATION: Temperature is 97.6, pulse is 128, respiratory rate is 48, blood pressure is 106/62 with an oxygen saturation of 80% on 0.80 FiO2. In the room, it is up to 94% on 0.80 FiO2. Arterial blood gas this morning shows a pH of 7.19, pCO2 of 68, pO2 of 66. With increased pressure it is now 7.20 with a pCO2 of 78. Input and output yesterday 1710 in and 930 out. She was positive 780 mL yesterday. GENERAL: The patient is tachypneic in respiratory distress with BiPap in place, unresponsive to voice. HEENT: Sclerae clear. Pupils are approximately 6 mm dilated but reactive to light. Small mouth opening. Tongue is midline. BiPap as in place. Neck is supple. No tracheal deviation. She is using accessory muscles to breathe. CARDIAC: Tachycardiac. S1, S2 without audible murmur, rub or gallop. No elevated jugular venous pressure. No peripheral edema. PULMONARY: Fair breath sounds bilaterally. No rhonchi or wheeze. She is tachypneic with shallow breathing. There are bibasilar crackles. ABDOMEN: Soft, nontender, nondistended. No discernible hepatosplenomegaly. I do not auscultate any bowel sounds. EXTREMITIES: No cyanosis. Positive clubbing. Skin is pale. No rashes or jaundice. MUSCULOSKELETAL: No joint effusions or evidence of fracture. Some muscle wasting. NEUROLOGIC: No evidence of unilateral weakness, however, the patient has decreased level of consciousness and is not making any significant movements. No evidence of seizure activity or tremor. LABORATORY EVALUATION: Shows a sodium 139, potassium 4.0, chloride 100, bicarbonate of 29, BUN 22, creatinine of 0.54, white blood cell count is elevated of 29.6, hemoglobin of 13.5, hematocrit of 40.9, platelet count of 317 with neutrophilia of 91%. Albumin is 2.5. Chest x-ray this morning shows continued whiteout of both lungs with now a small to moderate pneumothorax. Chest tube is in place in the left hemithorax. There is no free air in the diaphragm. Trachea is not deviated. No significant subcutaneous air. DIAGNOSES/IMPRESSION: 1. Respiratory failure, both hypercarbic hypoxic in nature with worsening respiratory failure this morning. With increase in inspiratory pressure in order to maintain ventilation and improve hypercarbia, there is worsened pneumothorax on the left. I have increased the suctioned to negative 40. We will repeat a chest x-ray and consider placement of another chest tube if this one is not functioning. There was some air leak through the chest tube when switched to negative 40. Overall, the patient has extremely poor prognosis. I do not expect her to live the next 24 hours. 2. Idiopathic pulmonary fibrosis (IPF) with probable flare and progressive hypoxia and respiratory failure, intolerant to steroid therapy. If the patient' s family chooses more aggressive approach with intubation, mechanical ventilation, we will consider high dose steroids when she is on mechanical ventilation. 3. Hyponatremia trending up. Appreciate nephrology input. 4. Encephalopath/ psychosis. Currently, the patient is in a coma, likely from CO2 narcosis. No further psychosis. 5. Sinus tachycardia from severity of critical illness. 6. Type 2 diabetes with hyperglycemia. On sliding scale insulin. 7. Deep vein thrombosis (DVT) prophylaxis with heparin. 8. Ulcer prophylaxis with Protonix. 9. Leukocytosis. The patient currently on vancomycin, Zosyn. Sputum culture had no growth. We will order calcitonin level if available. I do not find any signs of sepsis. The patient has no significant metabolic acidosis to suggest a lactic acidosis. The patient's requested evaluation for transplant. I stated at this point in time, because of the severity of her illness and the fact that she had a troponin leak that I do not believe that she would be a transplant candidate at this point in time. If she recovers and undergoes cardiac evaluation, there is a possibility of transplant; however, I do not have any confidence that she will recover from her current clinical state. FREDDY
[2017-04-20] MEDS: DOCUSATE SODIUM 100 MG CAP PO SCH ×2 (09:00→21:00)
[2017-04-20] MEDS: AZELASTINE 137MCG NASAL SPY 30 ML (ASTELIN) SCH ×2 (09:00→21:23)
--- NOTE | 2017-04-20 09:14 | REP ---
Portable chest, single AP view, the patient semi upright, 08:50 a.m.: Comparison is from 07:13 a.m. earlier today. Large left pneumothorax is again identified, slightly decreased in size from the comparison study. The left thoracotomy tube is unchanged. The increased density throughout the right lung is unchanged. Signed by Jayson Seymour MD 04/20/2017 09:05 A
[2017-04-20] MEDS ORDERED: ETOMIDATE INJ 20MG/10ML VIAL As Ordered ONE (09:25)
[2017-04-20] MEDS ORDERED: SUCCINYLCHOLINE INJ 200 MG/10 ML VIAL (J0330) As Ordered ONE (09:25)
[2017-04-20] MEDS ORDERED: MIDAZOLAM INJ 2 MG/2 ML VIAL (J2250) As Ordered ONE (09:37)
[2017-04-20] MEDS: MIDAZOLAM INJ 2 MG/2 ML VIAL (J2250) IV PRN ×5 (09:45→23:41)
[2017-04-20] MEDS ORDERED: ETOMIDATE INJ 20MG/10ML VIAL IV STA (09:50)
[2017-04-20] MEDS ORDERED: SUCCINYLCHOLINE INJ 200 MG/10 ML VIAL (J0330) IV STA (09:50)
--- NOTE | 2017-04-20 10:19 | REP ---
Follow-up portable chest, 10:06 a.m., single AP view, the patient semi upright: Comparison is from 08:50 a.m. earlier today. The left pneumothorax continues to decrease in size. Left chest tube is unchanged. Diffuse infiltrate throughout the right lung is unchanged. There is an endotracheal tube with the tip terminating satisfactorily just above the level of the aortic arch, above the kimberly. There is a nasogastric tube terminating satisfactorily in the abdominal left upper quadrant. Signed by Jayson Seymour MD 04/20/2017 10:11 A
--- NOTE | 2017-04-20 10:34 | RO ---
DATE OF PROCEDURE: 04/20/2017 PREPROCEDURE DIAGNOSIS: Acute respiratory failure. POSTPROCEDURE DIAGNOSIS: Acute respiratory failure. PROCEDURE: Endotracheal intubation. ATTENDING PHYSICIAN: Dr. Cade Dey RESIDENT: Dr. Kadie Lagos A time-out was completed verifying correct patient, procedure, position, and any equipment that was used. The patient was plated in the supine sniffing position and patient was pre- oxygenated. Rapid sequence intubation was started with Etomidate 20 mg and followed by succinylcholine 80 mg. The patient was easily ventilated with Ambu-Bag and a Glidescope was used to insert into the oropharynx. There was grade 1 view of the vocal cords and the 8.0 endotracheal tube was inserted and visualized going through the vocal cord. The stylet was removed. Colorimetric changes was visualized on the carbon dioxide meter. Breath sounds were heard in both lung dang equally. Endotracheal tube was placed at 21 cm initially, measured at the teeth. Dr. Dey was present through the entire procedure. X-ray was done and found the endotracheal tube was actually higher than the position we liked. Therefore, it was advanced by 2 more centimeters and it was placed at 23 cm. Lung sounds were heard in both lung dang equally. The patient tolerated the procedure well and there were no complications. The patient has been discussed with attending doctor, Dr. Dey. My preceptor for this patient encounter was Dr. Dey. The preceptor was physically present in the room during the encounter and was fully available. As needed, all aspects of the patient interview, examination, medical decision making process, and medical care plan development were reviewed and approved by the preceptor. The preceptor is aware and concurs with the plan as stated in the body of this note and will attest to such by her cosignature. FREDDY
[2017-04-20] MEDS: CHLORHEXIDINE GLUCONATE 0.12 % 15ML UDC (PERIDEX ORAL RINSE) MT SCH ×2 (10:48→21:22)
[2017-04-20] MEDS: MOM 30ML SUSPENSION UDC PO SCH (10:48)
[2017-04-20] MEDS: HEPARIN SOD (PORCINE) 5000 UNITS/ML VIAL SC SCH ×2 (10:48→21:23)
[2017-04-20] MEDS: SERTRALINE 100 MG TAB PO SCH (10:49)
[2017-04-20] MEDS: PANTOPRAZOLE 40MG INJ (PROTONIX) (C9113) IV SCH (10:49)
[2017-04-20 11:01] LABS: ANION GAP 8 MEQ/L (8-16); BLOOD UREA NITROGEN 26 MG/DL (7-18); CALCIUM LEVEL 8.8 MG/DL (8.5-10.1); CARBON DIOXIDE LEVEL 32 MEQ/L (21-32); CHLORIDE LEVEL 105 MEQ/L (98-107); GLOMERULAR FILTRATION RATE > 60.0 (>51); GLUCOSE, FASTING 189 MG/DL (70-105); POTASSIUM SERUM 3.7 MEQ/L (3.5-5.1); SODIUM LEVEL 145 MEQ/L (136-145)
[2017-04-20] MEDS ORDERED: SODIUM CHLORIDE 0.9% 1000 ML IV ONE (11:15)
[2017-04-20] MEDS ORDERED: methylPREDNISolone INJ 40 MG/1 ML VIAL (J2920) IV ONE (11:15)
[2017-04-20 11:25] LABS: ABG HCO3 27.5 MEQ/L (22.0-26.0); ABG PARTIAL PRESSURE CO2 52.4 mmHg (35.0-45.0); ABG PARTIAL PRESSURE O2 230.3 mmHg (75.0-100.0); ABG STANDARD HCO3 25.4 MEQ/L (22.0-26.0); ABG TOTAL CO2 29.1 MEQ/L (22.0-29.0); ABG pH (ARTERIAL) 7.338 UNITS (7.350-7.450)
[2017-04-20] MEDS: AZITHROMYCIN INJ 500 MG, VIAL MATE ADAPTER 1 EACH in D5W 250 ML IV SCH (12:37)
[2017-04-20] MEDS: methylPREDNISolone 1,000 MG, VIAL MATE ADAPTER 1 EACH in D5W 250 ML IV SCH ×3 (12:46→15:15)
[2017-04-20 12:54] LABS: OSMOLALITY URINE 546 MOSM/KG (500-800)
[2017-04-20] MEDS: NS 1,000 ML IV SCH (16:19)
[2017-04-20] MEDS: fentaNYL 100 MCG/2 ML INJECTION (J3010) IV PRN ×2 (16:21→20:37)
[2017-04-20] MEDS: QUEtiapine FUMARATE 25 MG TAB PO SCH (21:22)
[2017-04-20] MEDS: MONTELUKAST 10 MG TAB PO SCH (21:23)
[2017-04-21] VITALS (41 sets, daily range): BP systolic 82–174; BP diastolic 50–95; O2SAT 90–95
--- NOTE | 2017-04-21 00:10 | IPN ---
DATE: 04/19/2017 SUBJECTIVE: The patient was seen and examined at the bedside today in the morning in the intensive care unit (ICU). The last 24 hour events were noted. Last 24-hour serial labs were monitored. The patient was given intravenous (IV) fluids and tolvaptan yesterday. Creatinine is stable at this time. Sodium has nicely improved to 132 today, morning. However, unfortunately, the patient continues to be very tachypneic, tachycardic, still on bilevel positive airway pressure (BiPAP), requiring 90% FiO2 to maintain oxygen saturation above 90%. REVIEW OF SYSTEMS: The patient is unable to provide any reliable review of systems to me at this time. She is tachypneic, tachycardic, in severe respiratory distress, wearing bilevel positive airway pressure (BiPAP) at this time. She is unable to communicate without the BiPAP. OBJECTIVE: VITAL SIGNS: Temperature is 97.9 degrees Fahrenheit, blood pressure is 143/91, pulse is 125, respiratory rate of 50, saturating 93% on BiPAP at 90% FiO2. INTAKE/OUTPUT: Urine output recorded as 2.3 liters yesterday, 930 mL so far today since overnight. Weight on the bed scale is 58.4 kg. PHYSICAL EXAMINATION: GENERAL: The patient is awake and alert. She is unable to communicate because of tachypnea, laying in bed wearing BiPAP, in severe respiratory distress. HEAD AND NECK EXAM: Extraocular muscles intact. Pupils equally round and reactive to light. Neck is supple. There is no jugular venous distention (JVD). The patient has a BiPAP mask on at this time. CARDIOVASCULAR: S1, S2, tachycardia; otherwise, no murmur, rub or gallop. RESPIRATORY: The patient's rales and rhonchi are slightly better, but she has coarse breath sounds all over the lungs because of pulmonary fibrosis. ABDOMEN: Abdomen is soft. Positive bowel sounds. Nontender. No ascites. No organomegaly. GENITOURINARY: The patient has an indwelling Ortez catheter at this time. Urine in the bag is clear. MUSCULOSKELETAL: The patient has clubbing of all fingernails and toe nails, and she has mild cyanosis on the peripheries as well. Pulses are 2+. CENTRAL NERVOUS SYSTEM: The patient has no focal deficit but she is agitated and tachypneic because of respiratory distress. LAB REVIEW: CBC showed a WBC of 30.8, hemoglobin 13.6, platelets are 282. Urine osmolality this morning was 640. Random sodium was 32. ABG done today, morning, showed a pH of 7.28, pCO2 is 55, pO2 81, bicarbonate 25 , oxygen saturation is 95%. BMP this morning showed sodium 132, potassium 4.6, chloride 94, bicarbonate 26, BUN 13, creatinine 0.45, calcium is 7.9. Autoimmune serology showed complement 3 and complement 4 levels are normal. The rest of the serology is pending. IMAGING: Chest x-ray done today, morning, showed tiny left apical pneumothorax. . Increase in radiodensity throughout the lung dang. CURRENT INPATIENT MEDICATIONS: The patient's medications were all reviewed by me. I have decreased the IV fluid rate to 60 mL an hour. She was also given a dose of sodium phosphate 20 mmol IV times one dose. I have changed her IV vancomycin to normal saline instead of D5. I stopped the calcium and vitamin D tablet because she is unable to take medication at this time. There is no other change in the medications today as compared with yesterday. The patient was given another dose of tolvaptan 15 mg by mouth this morning. ASSESSMENT: A 57-year-old female with interstitial lung disease, with severe respiratory distress, currently on BiPAP, status post wedge resection of left lower lobe for biopsy and diagnosis. Nephrology service following the patient for management of hyponatremia and polyuria. PLAN: 1. Hypotonic hyponatremia with high urine osmolality, high urine sodium and recent polyuria. The patient was started on IV fluids yesterday and at the same time, she was given a dose of Samsca. Sodium level has improved to 132. I am going to change the BMP monitoring to every 24 hours for now. I have decreased the IV fluid rate to normal saline at 60 mL per hour. The patient was given another dose of Samsca 15 mg today. Continue to hold the antipsychotic medications at this time, they can sometimes exacerbate syndrome of inappropriate secretion of antidiuretic hormone (SIADH). I have also changed the IV antibiotics to be made in normal saline as well. 2. Hypoxic and hypercapnic respiratory failure, which is secondary to worsening interstitial lung disease. The patient is currently on BiPAP. The rest of the management is as per pulmonary service. As per documentation, the patient has poor prognosis. 3. Proteinuria and hematuria. It might have been secondary to use of Toradol; however, given the history of interstitial lung disease along with proteinuria, hematuria, I have ordered the pulmonary renal syndrome workup. C3, C4 levels are normal. The rest of autoimmune serology is pending. 4. Diabetes mellitus type 2. Metformin was stopped. The patient is nothing by mouth at this time. She is not able to eat anything because of severe respiratory distress. Continue to monitor with insulin sliding scale only. The plan of care was discussed with the patient's RN at the bedside, and with the resident medical team. FREDDY
[2017-04-21] MEDS: fentaNYL 100 MCG/2 ML INJECTION (J3010) IV PRN ×2 (00:15→14:15)
[2017-04-21] MEDS: LEVALBUTEROL 1.25 MG/0.5 ML CONCENTRATE NEB NEB SCH ×4 (00:31→19:17)
[2017-04-21] MEDS: MIDAZOLAM INJ 2 MG/2 ML VIAL (J2250) IV PRN ×8 (00:36→21:21)
[2017-04-21 05:14] LABS: BASO % 0.1 % (0.0-1.0); EOS % 0.2 % (0.0-3.0); LARGE UNSTAINED CELL # 0.1 K/mm3 (0.0-0.4); LARGE UNSTAINED CELL % 0.6 % (0.0-4.0); LYMPH # 0.8 K/mm3 (1.5-4.5); LYMPH % 4.9 % (24.0-44.0); MEAN CORPUSCULAR HEMOGLOBIN 31.9 pg (27.0-33.0); MEAN CORPUSCULAR VOLUME 93.8 fl (80.0-96.0); MONO # 0.8 K/mm3 (0.0-0.8); MONO % 5.4 % (0.0-5.0); NEUTROPHILS # 12.5 K/mm3 (1.8-7.7); NEUTROPHILS % 88.8 % (36.0-66.0); PLATELET COUNT, AUTOMATED 235 k/mm3 (150-450); RED CELL DISTRIBUTION WIDTH 12.8 % (11.5-14.5); WHITE BLOOD COUNT 14.1 K/mm3 (4.0-10.0)
[2017-04-21 05:35] LABS: ALBUMIN 2.2 GM/DL (3.2-5.2); ALBUMIN/GLOBULIN RATIO 0.58 (1.00-1.93); ALKALINE PHOSPHATASE 97 U/L (45-117); ALT/SGPT 17 U/L (12-78); ANION GAP 4 MEQ/L (8-16); AST/SGOT 23 U/L (15-37); BILIRUBIN,TOTAL 0.5 MG/DL (0.2-1.0); BLOOD UREA NITROGEN 23 MG/DL (7-18); CALCIUM LEVEL 8.4 MG/DL (8.5-10.1); CARBON DIOXIDE LEVEL 34 MEQ/L (21-32); CHLORIDE LEVEL 104 MEQ/L (98-107); CHOLESTEROL LEVEL 155 MG/DL (< 200); CREATININE FOR GFR 0.87 MG/DL (0.55-1.02); GLOMERULAR FILTRATION RATE > 60.0 (>51); GLUCOSE, FASTING 349 MG/DL (70-105); PHOSPHORUS LEVEL 0.5 MG/DL (2.5-4.9); POTASSIUM SERUM 3.4 MEQ/L (3.5-5.1); SODIUM LEVEL 142 MEQ/L (136-145); TRIGLYCERIDES LEVEL 121 MG/DL (<150)
[2017-04-21 05:55] LABS: ABG PARTIAL PRESSURE O2 82.3 mmHg (75.0-100.0); ABG STANDARD HCO3 27.1 MEQ/L (22.0-26.0); ABG TOTAL CO2 28.2 MEQ/L (22.0-29.0); ABG pH (ARTERIAL) 7.458 UNITS (7.350-7.450)
[2017-04-21] MEDS: HumaLOG INSULIN (NovoLOG) PER UNIT SC SCH ×3 (05:55→17:30)
[2017-04-21] MEDS: hydrOXYzine 25 MG TAB PO SCH (05:55)
[2017-04-21] MEDS: CHLORHEXIDINE GLUCONATE 0.12 % 15ML UDC (PERIDEX ORAL RINSE) MT SCH ×2 (07:37→21:55)
[2017-04-21] MEDS ORDERED: POTASSIUM PHOSPHATE INJ 15 MMOL in D5W 250 ML IV ONE (09:00)
[2017-04-21] MEDS: DOCUSATE SODIUM 100 MG CAP PO SCH ×2 (09:00→20:07)
[2017-04-21] MEDS: AZITHROMYCIN INJ 500 MG, VIAL MATE ADAPTER 1 EACH in D5W 250 ML IV SCH (09:38)
[2017-04-21] MEDS: PROPOFOL 1,000 MG in APPROPRIATE DILUENT 1 EA IV SCH ×2 (09:40→19:39)
[2017-04-21] MEDS: methylPREDNISolone INJ 125 MG/2 ML VIAL (J2930) IV SCH ×3 (09:45→21:55)
[2017-04-21] MEDS: SERTRALINE 100 MG TAB PO SCH (09:45)
[2017-04-21] MEDS: PANTOPRAZOLE 40MG INJ (PROTONIX) (C9113) IV SCH (09:45)
[2017-04-21] MEDS: ENOXAPARIN 30 MG/0.3 ML SYR (J1650) SC SCH (09:45)
[2017-04-21] MEDS: LEVEMIR (INSULIN DETEMIR) 1 UNITS/0.01ML SC SCH ×2 (09:46→21:55)
[2017-04-21] MEDS: NEUTRA-PHOS 1.25 GM PACKET PO SCH ×2 (09:47→21:55)
--- NOTE | 2017-04-21 10:05 | CCN ---
DATE: 04/21/2017 TIME PATIENT SEEN: 0830 hours Critical care time was one hour excluding all procedures. Patient has been seen and examined at bedside. Continues to be intubated and on mechanical ventilation, sever illness requiring critical care including severe respiratory failure. She continues to elevated peak pressures, significantly elevated plateau pressures. She desaturates with minimal movement. Minimal pneumothorax is persistent. The patient does respond to painful stimuli. Awakes on sedation vacation however she becomes very tachypneic. PHYSICAL EXAMINATION: VITAL SIGNS: Temperature was 98.9, pulse 120, respirations 32, blood pressure 145/86, oxygen was saturating at 93% on mechanical ventilation with setting of volume control, tidal volume 350, respiratory rate 20, FiO2 60, PEEP of 10. GENERAL: Patient is intubated and sedated with head elevated at 30 degrees. Patient is on tube feeds, currently at a rate of 30. Patient's total in yesterday was 3902, and total output was 1270 with a balance of positive 2632. HEENT: Normocephalic, atraumatic. Extraocular motors could not be assessed due to the patient is sedated and intubated; however, pupils were equal, round and reactive to light. Pupils size was about 3 mm. Patient's NG tube and ET tube is in place. CARDIOVASCULAR: Tachycardic, S1 and S2. Distant heart sounds. Normal S1 and S2 and distant heart sounds due to increased ap diameter. LUNGS: There were rales in bilateral lung dang and there is some moderate wheezing on the left lung. Chest tube is in place on the left side. Dressing was dry, clean and intact. ABDOMEN: Positive bowel sounds, soft, nontender. No peritoneal signs. No ecchymosis. EXTREMITIES: No edema, clubbing or cyanosis. SKIN: Warm and dry. NEURO: Could not be fully assessed due to the patient being intubated and sedated; however, patient's deep tendon reflexes shows 3/4. LABORATORIES: WBC 14.1, hemoglobin 11, hematocrit 32.3 with a platelet count of 235 and MCV of 93.8. Sodium 142, potassium 3.4, chloride 104, bicarb 34, BUN 23, creatinine 0.87, GFR greater than 60, glucose 349, calcium 8.4, phosphorous 0.5, which was low. Total bilirubin 0.5, AST 23, ALT 17, alkaline phosphatase 97, LDH 369, elevated. Total CK was 173, total protein 6, albumin 2.2, triglycerides 121, cholesterol 155. Patient's ABG this morning shows a pH of 7.45, pCO2 39, pO2 82 with saturation of 96 and a base excess of +3. Patient has LINDA, atypical ANCA, c-ANCA, p-ANCA, double stranded DNA, GBM antibody pending. Patient's compliment C3 and C4 were 156 and 35.7. Accu-Chek glucose shows 317, 317. HIV screening was negative. The patient's gram stain and culture shows good quality with a few epithelial cells, moderate WBC, no organisms. The patient's portable chest x-ray this morning shows bilateral infiltrates have improved. The patient does still have a moderate sized pneumothorax on the left side. Chest tube and ET tube in good position. ASSESSMENT/PLAN: 57-year-old female with a past medical history most significantly interstitial lung disease, chronic hypoxic respiratory failure, depression and anxiety, noninsulin dependent type 2 diabetes, and osteoporosis who presented with: 1. Acute hypoxic hypercarbic respiratory failure on chronic hypoxic respiratory failure status post triple wedge resection of apical basilar segment of lower lobe, posterior segment of lower lobe and lingula, bronchoscopy and five level rib block with video assisted thoracoscopic surgery technique, postop day 7. Patient's respiratory status continues worsened after surgery and she was intubated yesterday, needing mechanical ventilation. Patient's lung biopsy came back showing chronic interstitial fibrosis most consistent with usual interstitial pneumonia. We have started the patient on 3 grams of Solu-Medrol yesterday. Today the patient's portable chest x-ray shows improvement of the infiltrates and will start the patient on Solu-Medrol 125 mg IV every 6 hours starting today. The patient has also been started on azithromycin yesterday and we have discontinued montelukast. Will continue mechanical ventilation. She has a plateau pressure of 42, peak of 45. The patient's prognosis was poor, which was explained to the patient's yesterday and he agrees he would like to do a trial of ventilation at this point. 2. Left sided pneumothorax. Chest tube in place after surgery. Today's portable chest x-ray continued to show moderate sized pneumothorax and the patient does continue to have left anterior chest subcutaneous emphysema; however, the left subcutaneous emphysema has improved. The patient's chest tube today shows minimal leakage, draining output was about 20 mL overnight over the past 24 hours. Will continue portable chest x-ray. 3. Hyperglycemic with glucose of 349 this morning. Patient has been receiving insulin sliding scale. It is possibly secondary to Solu-Medrol with her underlying diabetes. At this point, will start Levemir 10 units twice a day and continue to monitor glucose every 6 hours with fingersticks. 4. Leukocytosis with WBC of 14, which was 29.6 yesterday. The reduction was likely due to reduction of inflammation from steroids. Will continue to monitor. 5. Hypophosphatemia with a level of 0.5 this morning. We have repleted the patient with one dose of IV K-Phos and will replete the rest with by mouth K-Phos. 6. Dementia and psychosis. Will continue Zoloft and Seroquel in addition to the patient's sedation with propofol and will continue to monitor the patient. 7. The patient's fluid has been discontinued. Electrolytes have been repleted. The patient is on tube feeds with 60 mL per hour. 8. Deep vein thrombosis (DVT) prophylaxis has been switched from heparin to Lovenox. FEN: DC'ed IVF, replated Kphos, Tube feed @ 60 cc/hr. CODE STATUS: The patient is currently a FULL CODE. The patient's has expressed that he would like a trial of mechanical ventilation. Patient does not appear to have advance directive. The patient has been discussed with attending doctor, Dr. Dey. Critical care time is 1 hour, excluding procedure time. My preceptor for this patient encounter was Dr. Cade Dey. The preceptor was physically present in the room during the encounter and was fully available. As needed, all aspects of the patient interview, examination, medical decision making process, and medical care plan development were reviewed and approved by the preceptor. The preceptor is aware and concurs with the plan as stated in the body of this note and will attest to such by her cosignature. I, Cade Dey, was at the patients bedside providing critical care for the time stated above. She remains critically ill and I have no expectation that she will recover. FREDDY
--- NOTE | 2017-04-21 10:59 | ECHO ---
DATE OF PROCEDURE: 04/20/2017 DATE OF : 1960 AGE: 57 REFERRING PROVIDER: Dr. Mathis. PATIENT LOCATION: Room 3204. REASON FOR ECHOCARDIOGRAM: Shortness of breath. 2D MEASUREMENTS: IVS: 0.96 cm LV: 3.4 cm LVPW: 0.93 cm LA: 3.3 cm Aorta: 3.4 cm IVC: 1.5 cm DOPPLER MEASUREMENTS: Peak velocity across the aortic valve: 1.1 m/s Peak velocity across the LVOT: 0.73 m/s Mitral E: 0.7 Maximum tricuspid valve velocity: 3.1 m/s 2D COMMENTS: 1. Normal left ventricular size, wall thickness and normal global left ventricular systolic function estimated at 60% to 65%. 2. Normal left atrium. Normal right atrium and right ventricle. 3. The atrial septum appeared to be normal without evidence of defect or shunt. 4. Normal aortic root. 5. No pericardial effusion seen. 6. The aortic valve, mitral valve, and tricuspid valve appeared to be normal. The pulmonic valve and proximal pulmonary artery branches were not well visualized. 7. The inferior vena cava was normal in size, central venous pressure is most likely normal. DOPPLER: It detects mild mitral regurgitation, mild to moderate tricuspid regurgitation. The calculated pulmonary artery systolic pressure varies between 40 to 50 mmHg. Assessment of the left ventricular diastolic function appeared to be normal in limited views. IMPRESSION: 1. Normal global left ventricular systolic function. 2. Mild mitral regurgitation. 3. Mild to moderate tricuspid regurgitation with probably moderate pulmonary hypertension. 4. Patient was noted during the test to be in mild sinus tachycardia with a heart rate up to about 130 beats per minute. MTDD
--- NOTE | 2017-04-21 13:24 | REP ---
PORTABLE CHEST: AP portable view of the chest is performed and compared to prior study of 04/20/2017. Endotracheal tube is seen with the tip about 2.6 cm above the kimberly. Nasogastric tube is seen with the side port in the region of the gastroesophageal junction. There is a left chest tube. There is a small left pneumothorax. There is air in the left chest wall. Diffuse bilateral infiltrates appear unchanged. IMPRESSION: Nasogastric tube is seen with the side port in the region of the gastroesophageal junction. This should be advanced. Endotracheal tube in good position. Left chest tube in place. Small left pneumothorax with diffuse bilateral infiltrates. Signed by Jayson Hudson MD 04/21/2017 03:20 P
--- NOTE | 2017-04-21 14:54 | IPN ---
DATE: 04/20/2017 SUBJECTIVE: The patient was seen and examined at the bedside today morning in the intensive care unit (ICU). She had just been intubated when I saw the patient. The patient was otherwise hemodynamically stable, but still very tachycardic. Her renal function is stable and sodium has improved to 139 today morning. REVIEW OF SYSTEMS: The patient was unable to provide any review of systems because she is intubated at this time. OBJECTIVE: VITAL SIGNS: When I saw the patient today morning, her temperature was 98.7 degrees Fahrenheit, blood pressure 135/77, pulse is 128, respiratory rate of 30, and she was saturating around 91% on vent with 100% FiO2. PHYSICAL EXAMINATION: GENERAL: The patient is intubated, slightly sedated at this time, laying in bed currently on the vent. HEAD AND NECK EXAM: Pupils equally round and reactive to light. The patient has an OGT and ETT. Neck is supple. There is no jugular venous distention (JVD). CARDIOVASCULAR: S1, S2, tachycardia; no murmur, rub or gallop. RESPIRATORY: The patient has a left sided chest tube. She is currently on the vent. I am hearing transmitted breath sounds through the vent at this time. ABDOMEN: Abdomen is soft. Positive bowel sounds. Nontender. No ascites. No organomegaly. GENITOURINARY: The patient has an indwelling Ortez catheter. Urine in the bag is clear. MUSCULOSKELETAL: No edema of the extremities. Pulses are 2+. There is significant clubbing of all fingernails and toe nails. CENTRAL NERVOUS SYSTEM: The patient is sedated at this time. Moves extremities on painful stimuli. SKIN: No rashes or ulcers. LAB REVIEW: CBC showed a WBC of 29.6, hemoglobin 13.5, platelets are 317. ABG this morning after intubation showed pH of 7.33, pCO2 52, pO2 230, bicarbonate 27, oxygen saturation is 99.7%. BMP showed sodium 139, potassium 4, chloride 100, bicarbonate 29, BUN 22, creatinine 0.54, glucose 189, calcium is 9.1, phosphorus 2.9. CURRENT INPATIENT MEDICATIONS: Patient's medications were all reviewed by me. She continues to be on IV normal saline at 60 mL/hr. The patient was started on Solu-Medrol IV daily 1 gram. She has been started on azithromycin 500 mg IV every 24 hours. IV vancomycin and Zosyn have been stopped. The patient has also been started on tube feeds. The patient was given a bolus of normal saline 500 mL IV because of hypotension after intubation. There is no other change in the medications today as compared with yesterday. ASSESSMENT: 57-year-old female with interstitial lung disease, currently intubated because of hypoxic and hypercapnic respiratory faillure. Nephrology service following the patient for hyponatremia. PLAN: 1. Hypotonic hyponatremia with high urine osmolality. The patient is being clinically treated as syndrome of inappropriate secretion of antidiuretic hormone (SIADH). She was given normal saline and stared on tolvaptan. She has been given two doses of tolvaptan so far for the last two days. Sodium is nicely improved. I am not going to give any more tolvaptan at this time; however, I will do BMP every 8 hours for the next 24 hours to make sure that her sodium level stays stable. 2. Vent dependent respiratory failure. It is secondary to interstitial fibrosis. The patient has been intubated now. She has been started on azithromycin and IV pulse steroids. The rest of the management is as per pulmonary service. 3. Protein calorie malnutrition. The patient has not been able to eat for the last many days because of respiratory distress. She is being started on tube feeds. Advance the tube feed rate as tolerated. The patient's sodium level has improved. Nephrology service will sign off at this moment. Please call nephrology for any help in the management of this patient during this hospitalization.
[2017-04-21] MEDS: QUEtiapine FUMARATE 25 MG TAB PO SCH (21:55)
[2017-04-22] VITALS (41 sets, daily range): BP systolic 71–144; BP diastolic 43–82; O2SAT 94
[2017-04-22] MEDS: HumaLOG INSULIN (NovoLOG) PER UNIT SC SCH ×4 (00:08→17:39)
[2017-04-22] MEDS: MIDAZOLAM INJ 2 MG/2 ML VIAL (J2250) IV PRN ×4 (00:54→15:50)
[2017-04-22] MEDS: LEVALBUTEROL 1.25 MG/0.5 ML CONCENTRATE NEB NEB SCH ×4 (01:38→19:33)
[2017-04-22] MEDS: PROPOFOL 1,000 MG in APPROPRIATE DILUENT 1 EA IV SCH ×5 (01:48→21:22)
[2017-04-22] MEDS: fentaNYL 100 MCG/2 ML INJECTION (J3010) IV PRN ×4 (01:53→18:22)
[2017-04-22] MEDS: methylPREDNISolone INJ 125 MG/2 ML VIAL (J2930) IV SCH ×4 (03:03→21:23)
[2017-04-22 05:07] LABS: BASO % 0.2 % (0.0-1.0); EOS % 0.2 % (0.0-3.0); LARGE UNSTAINED CELL # 0.1 K/mm3 (0.0-0.4); LARGE UNSTAINED CELL % 0.6 % (0.0-4.0); LYMPH # 0.7 K/mm3 (1.5-4.5); MEAN CORPUSCULAR HEMOGLOBIN 31.2 pg (27.0-33.0); MEAN CORPUSCULAR HGB CONC 32.1 g/dl (32.0-36.5); MEAN CORPUSCULAR VOLUME 97.2 fl (80.0-96.0); MONO # 0.7 K/mm3 (0.0-0.8); MONO % 3.2 % (0.0-5.0); NEUTROPHILS # 20.6 K/mm3 (1.8-7.7); NEUTROPHILS % 92.8 % (36.0-66.0); PLATELET COUNT, AUTOMATED 230 k/mm3 (150-450); RED CELL DISTRIBUTION WIDTH 12.9 % (11.5-14.5); WHITE BLOOD COUNT 22.2 K/mm3 (4.0-10.0)
[2017-04-22 05:27] LABS: ALBUMIN 2.3 GM/DL (3.2-5.2); ALBUMIN/GLOBULIN RATIO 0.59 (1.00-1.93); ALKALINE PHOSPHATASE 99 U/L (45-117); ALT/SGPT 28 U/L (12-78); ANION GAP 6 MEQ/L (8-16); AST/SGOT 30 U/L (15-37); BILIRUBIN,TOTAL 0.3 MG/DL (0.2-1.0); BLOOD UREA NITROGEN 31 MG/DL (7-18); CALCIUM LEVEL 8.4 MG/DL (8.5-10.1); CARBON DIOXIDE LEVEL 33 MEQ/L (21-32); CHLORIDE LEVEL 103 MEQ/L (98-107); CHOLESTEROL LEVEL 160 MG/DL (< 200); GLOMERULAR FILTRATION RATE > 60.0 (>51); GLUCOSE, FASTING 333 MG/DL (70-105); PHOSPHORUS LEVEL 1.7 MG/DL (2.5-4.9); POTASSIUM SERUM 4.2 MEQ/L (3.5-5.1); SODIUM LEVEL 142 MEQ/L (136-145); TOTAL PROTEIN 6.2 GM/DL (6.4-8.2); TRIGLYCERIDES LEVEL 196 MG/DL (<150)
[2017-04-22 05:49] LABS: ABG BASE EXCESS 10.2 (-2.0-2.0); ABG HCO3 35.9 MEQ/L (22.0-26.0); ABG PARTIAL PRESSURE CO2 54.5 mmHg (35.0-45.0); ABG PARTIAL PRESSURE O2 122.2 mmHg (75.0-100.0); ABG TOTAL CO2 37.6 MEQ/L (22.0-29.0); ABG pH (ARTERIAL) 7.437 UNITS (7.350-7.450)
[2017-04-22] MEDS ORDERED: LIDOCAINE 1% MDV 20ML VIAL As Ordered ONE (07:49)
[2017-04-22] MEDS ORDERED: MIDAZOLAM INJ 5 MG/ML VIAL (J2250) As Ordered ONE (08:03)
[2017-04-22] MEDS: DOCUSATE SODIUM 100 MG CAP PO SCH ×2 (09:00→19:56)
[2017-04-22] MEDS ORDERED: MIDAZOLAM INJ 2 MG/2 ML VIAL (J2250) IV ONE (09:30)
[2017-04-22] MEDS: PANTOPRAZOLE 40MG INJ (PROTONIX) (C9113) IV SCH (09:38)
[2017-04-22] MEDS: ENOXAPARIN 30 MG/0.3 ML SYR (J1650) SC SCH (09:38)
[2017-04-22] MEDS: SERTRALINE 100 MG TAB PO SCH (09:39)
[2017-04-22] MEDS: LEVEMIR (INSULIN DETEMIR) 1 UNITS/0.01ML SC SCH ×2 (09:39→21:23)
[2017-04-22] MEDS: AZITHROMYCIN INJ 500 MG, VIAL MATE ADAPTER 1 EACH in D5W 250 ML IV SCH (09:39)
[2017-04-22] MEDS: CHLORHEXIDINE GLUCONATE 0.12 % 15ML UDC (PERIDEX ORAL RINSE) MT SCH ×2 (09:40→21:22)
--- NOTE | 2017-04-22 09:40 | RO ---
DATE OF PROCEDURE: 04/22/2017 PREPROCEDURE DIAGNOSIS: Pneumothorax. POSTPROCEDURE DIAGNOSIS: Pneumothorax. PROCEDURE: Left anterior chest tube. SURGEON: Cade Dey DO VOCATIONAL NURSING INSTRUCTOR: No assistants. ANESTHESIA: 1% lidocaine, a total of 15 mL, Versed and propofol. Consent was obtained verbally, witnessed and placed in the chart. Time-out was performed with two patient identifiers identifying correct site, correct procedure. Skin was marked prior to procedure with initials on the left side. DESCRIPTION OF PROCEDURE: After time-out was performed, patient was placed in the supine position. Patient was prepped and draped with chlorhexidine and sterile towels. The second left intercostal space was identified. Another time-out was performed with two patient identifiers identifying correct site, correct procedure. 1% lidocaine was then instilled subcutaneously down to the level of the pleura. The pleura was then pierced with a evangelista air. After adequate subcutaneous anesthetization, the #15 blade was used to make a 2 cm incision. The forceps were then used to spread the tissue down to the level of the second rib. Then, the forceps were advanced into the pleural space again with a evangelista air. The 20-Vietnamese chest tube was then placed just under 10 cm. Trocar was removed. This was sutured in place. There is a small air leak when attached to Pleur-Evac. Chest x-ray confirms appropriate position. On chest x-ray, there continues to be a small basal pneumothorax and subcutaneous air. There are no observed complications. No evidence of hemorrhage. The chest tube was then bandaged. Currently on 20 cm of negative pressure through the Pleur-evac. [facility]
[2017-04-22] MEDS: LevoFLOXacin IV 500 MG in APPROPRIATE DILUENT 1 EA IV SCH (10:15)
--- NOTE | 2017-04-22 10:43 | CCN ---
DATE: 04/22/2017 CRITICAL CARE TIME: 1 hour and 37 minutes. I was at patient's bedside this morning. She had a worsening pneumothorax on chest x-ray with worse subcutaneous emphysema. Therefore, I placed an anterior chest tube on the left. She remains in respiratory failure with high plateau pressures. Plateau pressures have decreased from her initial plateau pressure of 42 when paralyzed and down to now 30 on sedation. Her arterial blood gas shows some hypercarbic respiratory failure this morning. She has been tolerating tube feeds. Sputum culture has a few amounts of Staphylococcus. White count is elevated, thought to be secondary to Solu-Medrol; however, she had a low grade temperature of 100.1. I have elected to treat her for tracheitis with Levaquin as the staphylococcus culture is methicillin-sensitive Staphylococcus aureus (MSSA. She remains hyperglycemic. PHYSICAL EXAMINATION: Temperature is 100.1. Pulse is 120 in a sinus tachycardia. Respiratory rate is down to 28 from 30s. Blood pressure is 138/77. Oxygen saturations 93-96% on 65% FIO2. 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 General: The patient arouses and responds to painful stimuli. Currently, the patient is sedated because of recent procedure. She will have a late sedation vacation. HEENT: Sclerae clear and anicteric. Pupils are small, but reactive to light. Mucous membranes are moist. Tongue is midline. Endotracheal tube is in place at 23 at the lip. OG tube is in place. Neck is supple. No tracheal deviation. No mass. Lymphs: No supraclavicular, cervical or axillary adenopathy. Chest wall with minimal crepitus to palpation over the left anterior chest wall. No significant bruising or hemorrhage from the chest tubes. Pulmonary: Better air entry on the left. Bibasilar crackles are present. No wheeze. No rhonchi. There is a slight cuff leak of the endotracheal tube; however, this changes with body position. Cardiac: Distant S1, S2, tachycardiac in nature, without murmur, rub or gallop. No elevated jugular venous distention (JVP). No significant systemic edema. Abdomen: Soft, nontender, nondistended, with normoactive bowel sounds. No palpable mass or hepatosplenomegaly. Extremities: No cyanosis, clubbing or edema. Skin is pale without rash, jaundice or bruising. Neurologic: Has appropriate movements of the extremities. No evidence of seizure activity. No unilateral weakness. LABORATORY EVALUATION: Shows a leukocytosis of 22.2, hemoglobin of 10.7 and platelet count of 230. Blood gas shows a pH of 7.44, pCO2 of 55, pAO2 of 122. Electrolyte panel shows a sodium 142, potassium 4.2, chloride 103, bicarb 33, BUN of 31, creatinine of 0.9, with a glucose of 333, calcium is 8.4, phosphorous is 1.7, LDH is 384, CK is 215, and albumin is 2.3. Chest x-ray this morning from 0600 shows a worsening pneumothorax. With more subcutaneous air. Postprocedure film shows chest tube in adequate position, continued pneumothorax with subcutaneous air. I have asked for a second chest x-ray to better view the entirety apices and hopefully there will be more evacuation of air once this has been performed. IMPRESSION: 1. Respiratory failure secondary to interstitial lung disease. I believe she had an acute flare. She did seem to respond from a radiologic standpoint as far as her infiltrate from high dose steroids. Will continue these. I have also placed her on azithromycin for the anti-inflammatory effect of the medication. She continues to have a pneumothorax, likely from reintroduction of positive pressure needed to provide adequate ventilation and oxygenation. I placed a second chest tube because of pneumothorax. Overall because of her diagnosis of idiopathic pulmonary fibrosis and classic usual interstitial pneumonia (UIP) findings on pathology, prognosis is extremely guarded and I am not optimistic she will survive this hospitalization. 2. Pneumothorax. Anterior chest tube placed. Will repeat chest x-ray to include apices to ensure adequate resolution of the pneumothorax. 3. Hypophosphatemia. Will replace per tube. 4. Tracheitis. Initiated Levaquin for 5 days only. No evidence of septic shock at this point in time. No evidence of pneumonia. 5. Sinus tachycardia. No indication for treatment at this point in time expected given her current clinical situation. She has had no other significant arrhythmias. 6. Nutrition. Currently she is on 60 mL an hour of 1.2 Glucerna. 7. Hyperglycemia. I have increased her Levemir to 20 mg twice a day. 8. Gastrointestinal (GI) prophylaxis with Protonix, especially given her high dose steroids. 9. Depression and psychosis. Will continue Zoloft and Seroquel, on mechanical ventilation to allow for easier transition once she is extubated if that is ever a possibility. 10. Deep vein thrombosis (DVT0 prophylaxis with Lovenox. 11. Anemia which is mild. No indication for transfusion. Likely dilutional given the fact that she is 1.6 liters positive over the past 24 hours. Will continue to monitor for volume overload. Critical care time as mentioned above, this excludes all procedures. The patient remains in very critical state due to the severity of her respiratory failure and her high plateau pressures suggesting significant interstitial lung disease. It is in question how much of this is actually reversible as she has had chronic interstitial lung disease. The extent of her prognosis was discussed with the at bedside today.
--- NOTE | 2017-04-22 10:47 | REP ---
PORTABLE CHEST: AP portable view of the chest is performed and compared to prior exam of the same day. A second left chest tube has been placed. There is a small left pneumothorax. Bilateral infiltrates are again noted. Cardiomediastinal silhouette is unchanged. An endotracheal tube and nasogastric tube are again noted with the side port of the nasogastric tube again seen at the level of the gastroesophageal junction. Extensive air is seen in the left chest wall soft tissues. IMPRESSION: Placement of second left chest tube, with two left chest tubes now present. Small residual left pneumothorax. Otherwise no change since prior study. Signed by Jayson Hudson MD 04/22/2017 07:25 P
--- NOTE | 2017-04-22 10:49 | REP ---
PORTABLE CHEST, 5:49 A.M.: Single frontal portable view of the chest is performed and compared to prior study of 04/21/2017. There appears to be mild increase in size of left pneumothorax. Left chest tube is in place. Extensive air is seen in the left chest wall soft tissues. There are again bilateral infiltrates in the lungs. The cardiomediastinal silhouette is unchanged. Endotracheal tube and nasogastric tube are again noted with side port of the nasogastric tube at the level of the gastroesophageal junction. IMPRESSION: Mild increase in the degree of left pneumothorax. Signed by Jayson Hudson MD 04/22/2017 07:25 P
[2017-04-22] MEDS: NEUTRA-PHOS 1.25 GM PACKET PO SCH ×2 (11:06→21:22)
[2017-04-22] MEDS ORDERED: LIDOCAINE 1% MDV 20ML VIAL SC ONE (11:15)
--- NOTE | 2017-04-22 12:27 | REP ---
PORTABLE CHEST, 9:55 A.M.: AP view of the chest performed. Comparison made with prior exams of the same day. Two left chest tubes are again noted. There is a small left pneumothorax again seen. Air is seen once again in the left chest wall soft tissues. The cardiomediastinal silhouette is unchanged. Endotracheal tube and nasogastric tube are unchanged. IMPRESSION: Two left chest tubes again noted. Otherwise no change. Signed by Jayson Hudson MD 04/22/2017 07:29 P
[2017-04-22] MEDS: QUEtiapine FUMARATE 25 MG TAB PO SCH (21:22)
[2017-04-23] VITALS (25 sets, daily range): BP systolic 74–183; BP diastolic 41–98; O2SAT 96
[2017-04-23] MEDS: HumaLOG INSULIN (NovoLOG) PER UNIT SC SCH ×4 (00:28→17:53)
[2017-04-23] MEDS: LEVALBUTEROL 1.25 MG/0.5 ML CONCENTRATE NEB NEB SCH ×4 (01:39→19:32)
[2017-04-23] MEDS: MIDAZOLAM INJ 2 MG/2 ML VIAL (J2250) IV PRN ×4 (02:15→20:19)
[2017-04-23] MEDS: PROPOFOL 1,000 MG in APPROPRIATE DILUENT 1 EA IV SCH ×6 (02:47→21:55)
[2017-04-23] MEDS: methylPREDNISolone INJ 125 MG/2 ML VIAL (J2930) IV SCH ×4 (03:09→21:26)
[2017-04-23 05:00] LABS: BASO % 0.1 % (0.0-1.0); EOS # 0.1 K/mm3 (0.0-0.50); EOS % 0.5 % (0.0-3.0); LARGE UNSTAINED CELL # 0.1 K/mm3 (0.0-0.4); LARGE UNSTAINED CELL % 0.3 % (0.0-4.0); LYMPH # 0.7 K/mm3 (1.5-4.5); LYMPH % 2.8 % (24.0-44.0); MEAN CORPUSCULAR HEMOGLOBIN 31.5 pg (27.0-33.0); MEAN CORPUSCULAR HGB CONC 32.4 g/dl (32.0-36.5); MEAN CORPUSCULAR VOLUME 97.2 fl (80.0-96.0); MONO # 0.5 K/mm3 (0.0-0.8); MONO % 2.3 % (0.0-5.0); NEUTROPHILS # 20.6 K/mm3 (1.8-7.7); PLATELET COUNT, AUTOMATED 214 k/mm3 (150-450); RED CELL DISTRIBUTION WIDTH 13.1 % (11.5-14.5); WHITE BLOOD COUNT 21.9 K/mm3 (4.0-10.0)
[2017-04-23 05:19] LABS: ALBUMIN 2.3 GM/DL (3.2-5.2); ALBUMIN/GLOBULIN RATIO 0.59 (1.00-1.93); ALKALINE PHOSPHATASE 97 U/L (45-117); ALT/SGPT 29 U/L (12-78); ANION GAP 3 MEQ/L (8-16); AST/SGOT 22 U/L (15-37); BILIRUBIN,TOTAL 0.3 MG/DL (0.2-1.0); BLOOD UREA NITROGEN 37 MG/DL (7-18); CALCIUM LEVEL 8.5 MG/DL (8.5-10.1); CARBON DIOXIDE LEVEL 36 MEQ/L (21-32); CHLORIDE LEVEL 100 MEQ/L (98-107); CHOLESTEROL LEVEL 169 MG/DL (< 200); CREATININE FOR GFR 0.79 MG/DL (0.55-1.02); GLOMERULAR FILTRATION RATE > 60.0 (>51); GLUCOSE, FASTING 322 MG/DL (70-105); PHOSPHORUS LEVEL 2.3 MG/DL (2.5-4.9); POTASSIUM SERUM 4.7 MEQ/L (3.5-5.1); SODIUM LEVEL 139 MEQ/L (136-145); TOTAL PROTEIN 6.2 GM/DL (6.4-8.2); TRIGLYCERIDES LEVEL 256 MG/DL (<150)
[2017-04-23 06:00] LABS: ABG BASE EXCESS 10.9 (-2.0-2.0); ABG PARTIAL PRESSURE CO2 56.5 mmHg (35.0-45.0); ABG PARTIAL PRESSURE O2 112.6 mmHg (75.0-100.0); ABG STANDARD HCO3 34.7 MEQ/L (22.0-26.0); ABG TOTAL CO2 38.7 MEQ/L (22.0-29.0); ABG pH (ARTERIAL) 7.434 UNITS (7.350-7.450)
--- NOTE | 2017-04-23 07:48 | REP ---
Portable chest, 06:59 a.m., 04/23/2017, 06:59 a.m.: Comparison is 04/22/2017. The two left thoracotomy tubes are again identified. The tip of one thoracotomy tube is in the apex of the left hemithorax. The tip of the second thoracotomy tube projects lateral to the left ribs in the left apex as an interval change. The previous left pneumothorax appears to have decreased. There is subcutaneous emphysema along the left lateral chest wall as previously. There is atelectasis in the left lung. There is diffuse increased density throughout the right lung, unchanged. Cardiac size is mildly enlarged. There is an endotracheal tube terminating satisfactorily with the tip at the level of the aortic arch. There is a nasogastric tube terminating satisfactorily with the tip in the abdominal left upper quadrant. Impression: The tip of one of the two left thoracotomy tubes projects lateral to the ribs in the left apex. The left pneumothorax has decreased. Diffuse increased density throughout the right lung, unchanged. ET tube and nasogastric tube are unchanged. Signed by Jayson Seymour MD 04/23/2017 07:39 A
[2017-04-23] MEDS: fentaNYL 100 MCG/2 ML INJECTION (J3010) IV PRN ×4 (08:04→18:49)
[2017-04-23] MEDS: ENOXAPARIN 30 MG/0.3 ML SYR (J1650) SC SCH (08:09)
[2017-04-23] MEDS: LevoFLOXacin IV 500 MG in APPROPRIATE DILUENT 1 EA IV SCH (08:09)
[2017-04-23] MEDS: PANTOPRAZOLE 40MG INJ (PROTONIX) (C9113) IV SCH (08:09)
[2017-04-23] MEDS: AZITHROMYCIN INJ 500 MG, VIAL MATE ADAPTER 1 EACH in D5W 250 ML IV SCH (08:10)
[2017-04-23] MEDS: CHLORHEXIDINE GLUCONATE 0.12 % 15ML UDC (PERIDEX ORAL RINSE) MT SCH ×2 (08:10→21:22)
[2017-04-23] MEDS: SERTRALINE 100 MG TAB PO SCH (08:10)
[2017-04-23] MEDS: NEUTRA-PHOS 1.25 GM PACKET PO SCH (08:16)
[2017-04-23] MEDS: LEVEMIR (INSULIN DETEMIR) 1 UNITS/0.01ML SC SCH ×2 (08:16→21:00)
[2017-04-23] MEDS ORDERED: LIDOCAINE 1% MDV 20ML VIAL As Ordered ONE (08:28)
[2017-04-23] MEDS ORDERED: LIDOCAINE 1% MDV 20ML VIAL SC ONE (08:50)
[2017-04-23] MEDS ORDERED: MIDAZOLAM INJ 2 MG/2 ML VIAL (J2250) IV ONE (08:50)
[2017-04-23] MEDS: DOCUSATE SOD LIQ 100MG/10ML UDC GT SCH ×2 (09:00→21:23)
--- NOTE | 2017-04-23 09:06 | REP ---
PORTABLE CHEST: AP portable view of the chest is performed and compared to prior study of the same day. One of the left chest tubes has been removed. A single left chest tube is now present. Endotracheal tube and nasogastric tube are again noted, side port to the nasogastric tube is in the stomach. Cardiomediastinal silhouette is unchanged. There area again bilateral infiltrates. Small left pneumothorax is unchanged. Signed by Jayson Hudson MD 04/23/2017 01:11 P
--- NOTE | 2017-04-23 09:35 | REP ---
Portable chest, 09:14 a.m.: Comparison is from 08:33 a.m.. There are two left chest tubes. The distal tip of one of the two left chest tubes appears kinked. There is a left pneumothorax. This has decreased in size from 08:33 a.m. The endotracheal tube and nasogastric tube remain in satisfactory locations, unchanged. Diffuse increased density throughout the right lung is unchanged. Subcutaneous emphysema along the right lateral chest wall is unchanged. Signed by Jayson Seymour MD 04/23/2017 09:27 A
--- NOTE | 2017-04-23 09:43 | REP ---
Portable chest, 09:24 a.m., single AP view, the patient supine: Comparison is 09:14 a.m. There are two left chest tubes. One of the t chest tubes has been advanced. There is a small left pneumothorax, unchanged. Subcutaneous emphysema left lateral chest wall, unchanged. Diffuse increased density throughout the right lung, unchanged. The endotracheal tube and nasogastric tube remain in satisfactory locations, unchanged. Signed by Jayson Seymour MD 04/23/2017 09:34 A
--- NOTE | 2017-04-23 11:55 | RO ---
DATE OF PROCEDURE: 04/23/2017 PROCEDURE: Left anterior chest tube placement. PREOPERATIVE DIAGNOSIS: Left pneumothorax. POSTOPERATIVE DIAGNOSIS: Left pneumothorax. The procedure was deemed urgent, as her other chest tube had dislodged, and she had persistent pneumothorax. SURGEON: Cade Dey DO MANAGER PARK: Robert Wheeler MS IV ANESTHESIA: Versed DESCRIPTION OF PROCEDURE: The patient was placed in supine position. Chlorhexidine was used to sterilize the anterior chest wall. Full sterile precautions were used. The patient was draped with surgical towels. The 3rd intercostal space was identified in the midclavicular line. The chest tube that had been previously placed there had been removed. I used 1% lidocaine subcutaneously then done to level of the pleura for anesthetization. A total of 20 mL was used. After adequate anesthetization and additional sedation provided with Versed, 15 blade was used to extend a skin opening. Forceps were then used to separate the tissue down to level of the pleura. The pleura was then entered with a evangelista of air. A chest tube was then advanced into the pleural space. On x-ray, this had moved some. Therefore, it was advanced further into the chest. A second chest x-ray confirmed adequate position. This was then sutured in place with a mattress suture at 15 cm. This was already hooked up to suction through a Pleur-evac with evidence of air leak. There was no evidence of complication. Gauze drainage dressing was placed along with stretch tape. [facility]
[2017-04-23] MEDS ORDERED: FUROSEMIDE 20 MG/2 ML VIAL (J1940) IV ONE (12:00)
--- NOTE | 2017-04-23 12:47 | CCN ---
DATE: 04/23/2017 The patient had a short-lived hypoxic events this morning and her FiO2 was increased. On my evaluation, it appears that the anterior chest tube had been pulled out. I placed another anterior chest tube this morning. The patient did awake on sedation vacation this morning, was opening her eyes, looking around the room. She appeared quite nervous. She was tachypneic at this point in time when she was awake and her FiO2 was too high for me to consider extubation this morning. Therefore, sedation was reinitiated. She remains clinically ill due to the severity of her respiratory failure. PHYSICAL EXAMINATION: Temperature is 98.8, pulse is 101, respiratory rate is 36, blood pressure is 146/79, oxygen saturation 96% on 0.60 FiO2. GENERAL: Patient is an awake on mechanical ventilation, tachypneic. HEENT: Pupils dilated approximately 5 mm, equal, reactive to light. Mucous membranes are moist without lesions. Tongue is midline. Endotracheal tube is slightly deep. Sclera are edematous. NECK: Supple. No tracheal deviation or mass. PULMONARY: Decreased breath sounds on the left compared to the right. CARDIOVASCULAR: Distant S1-S2 without audible murmur, rub or gallop. She is in a sinus tachycardia. ABDOMEN: Soft, nontender, nondistended with no hepatosplenomegaly. No masses or hernia. EXTREMITIES: No cyanosis, clubbing or edema. SKIN: No rash, jaundice or bruising. INTAKE AND OUTPUT: Patient has been net positive the past 3 days over 4 liters. LABORATORY EVALUATION: Shows an elevated white count of 21.9 which is down from 22.2, hemoglobin is 11.1, hematocrit is 34.1, platelet count is 214, neutrophils 94, sodium is 139, potassium 4.7, chloride 100, bicarb of 36, BUN of 37, creatinine 0.79. Fasting glucose is still elevated at 322 despite doubling long-acting insulin yesterday. Phosphorous is slowly increasing with supplementation to 2.3. LDH is 382, albumin is 2.3. Arterial blood gas shows a pH of 743, pCO2 of 57 and pAO2 of 112. Chest x-ray after chest tube placement shows both lateral and anterior chest tubes in adequate position. Both chest tubes have an air leak. There is no new infiltrate. IMPRESSION: 1. Respiratory failure from interstitial lung disease, likely acute flare, on Solu-Medrol with some minimal radiographic response. The patient with persistent pneumothorax. I have decreased her PEEP as of yesterday to see if this will help with resolution of the pneumothoraces; however, it is likely due to the severity of her underlying disease and the fact that she is continuing to require mechanical ventilation. If she survives this episode , we can consider blood patch. Will continue on Solu-Medrol and azithromycin for its anti-inflammatory effects. 2. Pneumothorax with continuous air leak. Will maintain chest tube as long as the patient is on mechanical ventilation. 3. Tracheitis. Started on Levaquin yesterday. 4. Hypophosphatemia. Slowly increasing. 5. Hyperglycemia. I have increased Levemir to 30 units b.i.d. 6. Leukocytosis. Likely Solu-Medrol induced. 7. Depression psychosis. Continues on Zoloft and Seroquel. IMPRESSION: The patient's prognosis remains extremely guarded especially due to the severity of her interstitial lung disease. Monitor for the earliest point in time where she can be extubated.
[2017-04-23] MEDS ORDERED: MIDAZOLAM INJ 2 MG/2 ML VIAL (J2250) IV STA (16:41)
--- NOTE | 2017-04-23 20:22 | RO ---
DATE OF PROCEDURE: 04/23/2017 PREPROCEDURE DIAGNOSIS: Respiratory distress, tachypnea and high peak pressures on mechanical ventilation. POSTPROCEDURE DIAGNOSIS: Respiratory distress, tachypnea and high peak pressures on mechanical ventilation. PROCEDURE: Bronchoscopy. SURGEON: Dr. Cade Dey PATTERNMAKER WOOD:None ANESTHESIA: Sedated on mechanical ventilation CONSENT: Procedure was deemed urgent; therefore, consent was not obtained. DESCRIPTION OF PROCEDURE: After a time-out was performed and identifying two patient identifiers, correct site, correct procedure, the patient was placed in a supine position. Versed was administered in addition to her usual propofol to ease the procedure. Cetacaine spray was used to anesthetize the airway and lubricate the bronchoscope. 1T190 bronchoscope was then introduced into the endotracheal tube. All airways were suctioned. The airway was hyperemic without any evidence of recent hemorrhage. Airways had minimal amounts of mucus. The anterior segment of the left lower lobe had a large amount of mucus and mucus plugging which was suctioned. Left upper lobe had some mucus, which was also suctioned. There were minimal amounts of mucus on the right. RB 1-10, LB 1-10 was otherwise clear without endobronchial lesions. After clearance of mucus secretions, the bronchoscope was removed, the patient was placed back on mechanical ventilation. Peak pressures are still in the 40s, plateaus in the mid 30s. I believe the majority of her high peak pressure is secondary to the severity of her interstitial lung disease, especially given the underlying high plateau pressures. A chest x-ray was performed before the procedure to ensure no evidence of pneumothorax. She actually has less pneumothorax than on prior chest x-rays. No observed complications. [facility]
[2017-04-23] MEDS: QUEtiapine FUMARATE 25 MG TAB PO SCH (21:26)
[2017-04-24] VITALS (27 sets, daily range): BP systolic 93–123; BP diastolic 53–67; O2SAT 93–95
[2017-04-24] MEDS: HumaLOG INSULIN (NovoLOG) PER UNIT SC SCH ×4 (00:19→17:16)
[2017-04-24] MEDS: PROPOFOL 1,000 MG in APPROPRIATE DILUENT 1 EA IV SCH ×6 (01:56→20:49)
[2017-04-24] MEDS: LEVALBUTEROL 1.25 MG/0.5 ML CONCENTRATE NEB NEB SCH ×4 (01:59→19:53)
[2017-04-24] MEDS: methylPREDNISolone INJ 125 MG/2 ML VIAL (J2930) IV SCH ×4 (03:14→20:36)
[2017-04-24 05:23] LABS: BASO % 0.1 % (0.0-1.0); LARGE UNSTAINED CELL # 0.1 K/mm3 (0.0-0.4); LARGE UNSTAINED CELL % 0.3 % (0.0-4.0); LYMPH # 1.1 K/mm3 (1.5-4.5); LYMPH % 4.6 % (24.0-44.0); MEAN CORPUSCULAR HEMOGLOBIN 31.9 pg (27.0-33.0); MEAN CORPUSCULAR HGB CONC 32.9 g/dl (32.0-36.5); MEAN CORPUSCULAR VOLUME 96.9 fl (80.0-96.0); MONO # 0.6 K/mm3 (0.0-0.8); MONO % 2.7 % (0.0-5.0); NEUTROPHILS # 20.8 K/mm3 (1.8-7.7); NEUTROPHILS % 92.3 % (36.0-66.0); PLATELET COUNT, AUTOMATED 197 k/mm3 (150-450); RED CELL DISTRIBUTION WIDTH 12.9 % (11.5-14.5); WHITE BLOOD COUNT 22.5 K/mm3 (4.0-10.0)
[2017-04-24 05:57] LABS: ABG BASE EXCESS 17.7 (-2.0-2.0); ABG HCO3 43.9 MEQ/L (22.0-26.0); ABG PARTIAL PRESSURE CO2 59.7 mmHg (35.0-45.0); ABG PARTIAL PRESSURE O2 69.3 mmHg (75.0-100.0); ABG STANDARD HCO3 41.7 MEQ/L (22.0-26.0); ABG TOTAL CO2 45.7 MEQ/L (22.0-29.0); ABG pH (ARTERIAL) 7.484 UNITS (7.350-7.450)
--- NOTE | 2017-04-24 07:36 | REP ---
The portable chest, 07:27 p.m., single AP view, patient sitting: Comparison is from 09:24 a.m. The two left thoracotomy tubes are unchanged. There is a tiny left pneumothorax that has decreased in size. The subcutaneous emphysema along the left lateral chest wall has slightly decreased. Diffuse increased density throughout the left lung is again identified, unchanged. The endotracheal tube and nasogastric tube remain in satisfactory locations, unchanged. Signed by Jayson Seymour MD 04/24/2017 07:29 A
--- NOTE | 2017-04-24 07:51 | REP ---
On portable chest, 06:59 a.m., single AP view, the patient semi upright: Comparison is 04/23/2017, 04/26/1992. The two left thoracotomy tubes are unchanged. There is no visible left pneumothorax. There is a small volume of fluid in the pleural space in the left apex. There is increased density throughout the left and right lungs, unchanged, compatible with atelectasis. The subcutaneous emphysema along the left lateral chest wall has significantly decreased. Cardiac size is normal. The endotracheal tube and nasogastric tube remain in satisfactory locations, unchanged. Signed by Jayson Seymour MD 04/24/2017 07:42 A
[2017-04-24] MEDS: LEVEMIR (INSULIN DETEMIR) 1 UNITS/0.01ML SC SCH ×2 (09:19→20:37)
[2017-04-24] MEDS: PANTOPRAZOLE 40MG INJ (PROTONIX) (C9113) IV SCH (09:19)
[2017-04-24] MEDS: CHLORHEXIDINE GLUCONATE 0.12 % 15ML UDC (PERIDEX ORAL RINSE) MT SCH ×2 (09:19→20:37)
[2017-04-24] MEDS: ENOXAPARIN 30 MG/0.3 ML SYR (J1650) SC SCH (09:19)
[2017-04-24] MEDS: LevoFLOXacin IV 500 MG in APPROPRIATE DILUENT 1 EA IV SCH (09:20)
[2017-04-24] MEDS: AZITHROMYCIN INJ 500 MG, VIAL MATE ADAPTER 1 EACH in D5W 250 ML IV SCH (09:20)
[2017-04-24] MEDS: SERTRALINE 100 MG TAB PO SCH (09:20)
[2017-04-24] MEDS: DOCUSATE SOD LIQ 100MG/10ML UDC GT SCH ×2 (09:20→20:37)
--- NOTE | 2017-04-24 09:54 | CCN ---
DATE: 04/24/2017 Critical care time was 42 minutes, this excludes all procedures. The patient remains critically ill. Sedation vacation was held today as yesterday's sedation vacation resulted in significantly high peak pressures. Her respiratory status is such that it would be dangerous to perform a sedation vacation this morning. On my arrival, the patient remains tachypneic, high peak pressures of 50 with a plateau of 42. She has two chest tubes on the left with better control of hemothorax on imaging. Her lateral chest tube continues to have an air leak. She remains afebrile. On propofol, as needed Versed and fentanyl. LABORATORY DATA: Temperature is 99.1, pulse is 112, respiratory rate is 26, blood pressure is 109/58 with a mean arterial pressure 75 with pulse oximetry is 94% on 0.60 FIO2 with PEEP of 7. Current mechanical ventilation settings are assist control, tidal volume 350, respiratory rate of 20, for which she is overbreathing. FIO2 0.6, PEEP 7. The patient is sedated on mechanical ventilation. Will move extremities appropriately. HEENT: Sclerae clear and anicteric. Pupils are approximately 4 mm and reactive to light. Sclera is much less edematous compared to yesterday. Mucous membranes are moist. Tongue is midline. An 8.0 endotracheal tube is positioned at 22 at the lip. Orogastric tube is in place. NECK: Supple. No tracheal deviation or mass. No lymphadenopathy. CARDIAC: Tachycardiac S1, S2 without audible murmur, rub or gallop. No elevated jugular venous pressure. Minimal systemic edema. PULMONARY: Decreased breath sounds throughout both lung dang with rales at bases. Chest tubes in place with an air leak in the lateral. The anterior chest tube has no significant air leak. ABDOMEN: Soft, nontender, nondistended with normoactive bowel sounds. No discernible hepatosplenomegaly. EXTREMITIES: No cyanosis or clubbing. SKIN: No rashes or jaundice. Minimal bruising over the abdomen from recent Lovenox injections. LABORATORY EVALUATION Her BMP is pending for this morning. White blood cell count is 22.5, hemoglobin of 11, hematocrit of 33.4 with a platelet count of 197. Chest x-ray this morning shows endotracheal tube in good position. Bilateral lungs are well inflated, two chest tubes on the left in good position. There remains coarse interstitial markings throughout both lung dang, severe in nature. No evidence of new infiltrate. IMPRESSION: 1. Respiratory failure, acute hypoxic hypercarbic respiratory failure with severe underlying interstitial lung disease. Her prognosis remains extremely guarded. There has not been any significant clinical improvement over the past few days despite being on Solu-Medrol and azithromycin. I had a discussion with the this morning. He wishes to continue support over for the next week to see if there is any clinical improvement and to see if she can come off mechanical ventilation. He understands the chance of that is unlikely. 2. Tracheitis. Being treated with Levaquin. 3. Hyperglycemia. On long-acting insulin and sliding scale. 4. Edema. Minimal in nature and has been slightly positive over the past few days. I gave the patient Lasix yesterday. We will continue to dose intermittently for volume overload. 5. Gastrointestinal prophylaxis with Protonix. 6. Deep vein thrombosis (DVT) prophylaxis with Lovenox. 7. Depression and anxiety. I am continuing Seroquel and Zoloft due to the severity of her symptoms when she was off mechanical ventilation.
[2017-04-24 10:19] LABS: ANION GAP 5 MEQ/L (8-16); BLOOD UREA NITROGEN 32 MG/DL (7-18); CALCIUM LEVEL 9.4 MG/DL (8.5-10.1); CARBON DIOXIDE LEVEL 39 MEQ/L (21-32); CHLORIDE LEVEL 95 MEQ/L (98-107); CREATININE FOR GFR 0.65 MG/DL (0.55-1.02); GLOMERULAR FILTRATION RATE > 60.0 (>51); GLUCOSE, FASTING 205 MG/DL (70-105); POTASSIUM SERUM 4.6 MEQ/L (3.5-5.1); SODIUM LEVEL 139 MEQ/L (136-145)
[2017-04-24] MEDS ORDERED: FUROSEMIDE 40 MG/4 ML VIAL (J1940) IV ONE (16:45)
[2017-04-24] MEDS: QUEtiapine FUMARATE 25 MG TAB PO SCH (20:36)
[2017-04-25] VITALS (22 sets, daily range): BP systolic 87–107; BP diastolic 50–63; O2SAT 92–97
[2017-04-25] MEDS: HumaLOG INSULIN (NovoLOG) PER UNIT SC SCH ×4 (00:19→18:09)
[2017-04-25] MEDS: PROPOFOL 1,000 MG in APPROPRIATE DILUENT 1 EA IV SCH ×6 (00:20→23:40)
[2017-04-25] MEDS: LEVALBUTEROL 1.25 MG/0.5 ML CONCENTRATE NEB NEB SCH ×4 (01:35→19:46)
[2017-04-25] MEDS: methylPREDNISolone INJ 125 MG/2 ML VIAL (J2930) IV SCH ×4 (03:28→21:32)
[2017-04-25 05:07] LABS: BASO % 0.2 % (0.0-1.0); EOS # 0.1 K/mm3 (0.0-0.50); EOS % 0.3 % (0.0-3.0); LARGE UNSTAINED CELL # 0.1 K/mm3 (0.0-0.4); LARGE UNSTAINED CELL % 0.4 % (0.0-4.0); LYMPH # 1.6 K/mm3 (1.5-4.5); LYMPH % 6.6 % (24.0-44.0); MEAN CORPUSCULAR HEMOGLOBIN 31.8 pg (27.0-33.0); MEAN CORPUSCULAR VOLUME 96.5 fl (80.0-96.0); MONO # 0.7 K/mm3 (0.0-0.8); MONO % 2.9 % (0.0-5.0); NEUTROPHILS # 20.1 K/mm3 (1.8-7.7); NEUTROPHILS % 89.5 % (36.0-66.0); PLATELET COUNT, AUTOMATED 180 k/mm3 (150-450); RED CELL DISTRIBUTION WIDTH 12.8 % (11.5-14.5); WHITE BLOOD COUNT 22.4 K/mm3 (4.0-10.0)
[2017-04-25 05:26] LABS: ANION GAP 4 MEQ/L (8-16); BLOOD UREA NITROGEN 34 MG/DL (7-18); CALCIUM LEVEL 8.7 MG/DL (8.5-10.1); CARBON DIOXIDE LEVEL 41 MEQ/L (21-32); CHLORIDE LEVEL 90 MEQ/L (98-107); GLOMERULAR FILTRATION RATE > 60.0 (>51); GLUCOSE, FASTING 213 MG/DL (70-105); POTASSIUM SERUM 4.1 MEQ/L (3.5-5.1); SODIUM LEVEL 135 MEQ/L (136-145)
[2017-04-25 05:37] LABS: ABG BASE EXCESS 17.7 (-2.0-2.0); ABG HCO3 44.9 MEQ/L (22.0-26.0); ABG PARTIAL PRESSURE O2 84.3 mmHg (75.0-100.0); ABG STANDARD HCO3 41.6 MEQ/L (22.0-26.0); ABG pH (ARTERIAL) 7.437 UNITS (7.350-7.450)
[2017-04-25 05:38] LABS: ABG PARTIAL PRESSURE CO2 68.1 mmHg (35.0-45.0)
--- NOTE | 2017-04-25 07:37 | REP ---
Portable chest, 06:43 a.m., single AP view, the patient upright: Comparison is 04/24/2017. The two left thoracotomy tubes remain in satisfactory locations, unchanged. There is no pneumothorax. The subcutaneous emphysema along the left lateral chest wall has resolved. There is increased density diffusely throughout both right and left lungs, unchanged, compatible with atelectasis. The endotracheal tube and nasogastric tube remain in satisfactory positions, unchanged. Signed by Jayson Seymour MD 04/25/2017 07:29 A
--- NOTE | 2017-04-25 08:12 | ECGEPIP ---
Stationary ECG Study [facility] Test Date: 2017-04-25 Pat Name: CÉSAR GASTELUM Department: Room: [place] [address] Gender: F Hand Molder: TL : 1960 Requested By: MARIBETH Patel Order Number: [id number] Reading MD: Magan Rivera Measurements Intervals Mart Rate: 67 P: 38 DC: 108 QRS: -12 QRSD: 121 T: -8 QT: 463 QTc: 489 Interpretive Statements SINUS RHYTHM WITH SHORT DC INTERVAL Prolonged QTc Left ventricular hypertrophy by aVL criteria ST DEVIATION AND MARKED T-WAVE ABNORMALITY, CONSIDER ANTERIOR ISCHEMIA this represents a change from tracing done 04-18-17 Rate decreased from 04-18-17 tracing Electronically Signed On 04-25-2017 8:11:34 EDT by Magan Rivera
[2017-04-25] MEDS: SERTRALINE 100 MG TAB PO SCH (08:26)
[2017-04-25] MEDS: DOCUSATE SOD LIQ 100MG/10ML UDC GT SCH ×2 (08:26→21:31)
[2017-04-25] MEDS: AZITHROMYCIN INJ 500 MG, VIAL MATE ADAPTER 1 EACH in D5W 250 ML IV SCH (08:27)
[2017-04-25] MEDS: LevoFLOXacin IV 500 MG in APPROPRIATE DILUENT 1 EA IV SCH (08:27)
[2017-04-25] MEDS: LEVEMIR (INSULIN DETEMIR) 1 UNITS/0.01ML SC SCH ×2 (08:28→21:36)
[2017-04-25] MEDS: PANTOPRAZOLE 40MG INJ (PROTONIX) (C9113) IV SCH (08:28)
[2017-04-25] MEDS: CHLORHEXIDINE GLUCONATE 0.12 % 15ML UDC (PERIDEX ORAL RINSE) MT SCH ×2 (08:29→21:31)
[2017-04-25] MEDS: ENOXAPARIN 30 MG/0.3 ML SYR (J1650) SC SCH (08:29)
[2017-04-25] MEDS: METOCLOPRAMIDE INJ 10MG/2ML VIAL (J2765) IV SCH ×3 (08:45→21:32)
--- NOTE | 2017-04-25 09:58 | CCN ---
DATE: 04/25/2017 CRITICAL CARE NOTE: Critical care time was 1 hour. This excludes all procedures. The majority of her critical care time was at bedside, discussing her prognosis with her . Her states that she would not want to have had prolonged life support. He is aware of her decisions and she has made him healthcare proxy. He wishes to have some time to discuss with family in regards to her discontinuation of care, in the meantime will continue all supportive measures. She did have evidence of ST depression on telemetry. EKG was performed showing what looks like LV strain pattern. There is a troponin drawn at this point in time, which was normal. She has had no ventricular ectopy on telemetry. She remains critically ill. Her oxygen saturation has not improved in the past few days. Plateau pressures remain high in the mid 30s. She has had no significant clinical improvement as far as her lung function or lung recovery, and in fact, she is more hypercarbic today. Her pH is adequate and we are allowing permissive hypercapnia to try to provide her with low tidal volume ventilation. PHYSICAL EXAMINATION: Temperature is 97.2, pulse is 78, respiratory rate is 20, blood pressure is 93/ 52 with a mean arterial pressure of 66, oxygen saturation is 92% on 0.60 FiO2. General: Patient is sedated on mechanical ventilation. She does open her eyes spontaneously, moves extremities spontaneously. No evidence of unilateral weakness or tremor. HEENT: Sclerae clear and anicteric. Pupils are approximately 4 mm and reactive to light. Mucous membranes are moist without lesions. Tongue is midline. Endotracheal tube and orogastric (OG) tube are in place. Neck: Supple. No tracheal deviation or mass. Pulmonary: Decreased breath sounds more so on the left compared to the right. There is an air leak through her left lateral chest tube. The apical chest tube has no significant air leak. Cardiac: Distant S1, S2. Without audible murmur, rub or gallop. Sinus tachycardia. Without significant edema. Patient had some minimal edema last evening, was given Lasix. Abdomen: Soft, nontender, nondistended. Hypoactive bowel sounds. No mass or hernia. Extremities: No cyanosis, clubbing or edema. Skin is pale. Without rash, jaundice or bruising. Musculoskeletal: Some muscle weakness noted. No significant muscle wasting. No joint effusions. Neurologic: As mentioned above. Chest x-ray shows endotracheal tube in adequate position. Chest tube is in adequate position. Bilateral pulmonary interstitial infiltrate without significant improvement over the past few days. Laboratory evaluation shows a persistent leukocytosis of 22.4, hemoglobin 10.4, hematocrit of 31.7 with a platelet count of 180. Sodium is 135, down from 139. Bicarbonate is up to 41. BUN is 34, creatinine is 0.7. Glucose of 213. Calcium 8.7. Troponin 0.04. EKG shows left ventricular hypertrophy (LVH) with strain pattern and ST depression in the anterior leads. IMPRESSION: 57-year-old female with significant interstitial lung disease, severe hypoxic hypercarbic respiratory failure. Overall poor prognosis. I do not expect the patient to survive this hospitalization. We had a bedside discussion with her . He is considering withdrawal of care. I will continue to support the patient until he has made any alternative decisions. There has been no significant clinical improvement over the past week. She has a persistent pneumothorax, which will likely continue to be persistent especially given her mechanical ventilation requirements. 2. Hyponatremia. May be secondary to volume status. Will hold off on Lasix today. 3. Respiratory acidosis and metabolic alkalosis. Allowing for permissive hypercapnia to allow low tidal volumes especially given the fact that there was evidence of hyaline membrane formation, diffuse alveolar damage on biopsy. 4. LV strain. At risk for a myocardial infarction due to the stress of the severity of her lung disease. Will continue to monitor. 5. Deep venous thrombosis (DVT) prophylaxis with Lovenox. 6. Gastrointestinal (GI) prophylaxis with Protonix. 7. Tracheitis. On day #4 of Levaquin, and this will be discontinued after tomorrow's dose. 8. Idiopathic pulmonary fibrosis (IPF). Treated with high dose Solu-Medrol and azithromycin. No significant recovery. Overall very poor prognosis. Critical care time as mentioned above. This excludes all procedures. MTDD
[2017-04-25] MEDS: fentaNYL 100 MCG/2 ML INJECTION (J3010) IV PRN (16:55)
[2017-04-25] MEDS: MIDAZOLAM INJ 2 MG/2 ML VIAL (J2250) IV PRN (18:09)
[2017-04-25] MEDS: QUEtiapine FUMARATE 25 MG TAB PO SCH (21:36)
[2017-04-26] VITALS (10 sets, daily range): BP systolic 96–108; BP diastolic 51–59; O2SAT 86
[2017-04-26] MEDS: LEVALBUTEROL 1.25 MG/0.5 ML CONCENTRATE NEB NEB SCH ×3 (01:27→13:23)
[2017-04-26] MEDS: methylPREDNISolone INJ 125 MG/2 ML VIAL (J2930) IV SCH ×2 (03:14→09:10)
[2017-04-26] MEDS: METOCLOPRAMIDE INJ 10MG/2ML VIAL (J2765) IV SCH ×2 (03:14→09:12)
[2017-04-26] MEDS: PROPOFOL 1,000 MG in APPROPRIATE DILUENT 1 EA IV SCH ×4 (03:47→14:51)
[2017-04-26 04:55] LABS: BASO % 0.2 % (0.0-1.0); EOS # 0.2 K/mm3 (0.0-0.50); EOS % 0.7 % (0.0-3.0); LARGE UNSTAINED CELL # 0.1 K/mm3 (0.0-0.4); LARGE UNSTAINED CELL % 0.4 % (0.0-4.0); LYMPH # 0.9 K/mm3 (1.5-4.5); LYMPH % 2.7 % (24.0-44.0); MEAN CORPUSCULAR HEMOGLOBIN 31.6 pg (27.0-33.0); MEAN CORPUSCULAR HGB CONC 33.3 g/dl (32.0-36.5); MEAN CORPUSCULAR VOLUME 94.8 fl (80.0-96.0); MONO # 0.6 K/mm3 (0.0-0.8); MONO % 2.2 % (0.0-5.0); NEUTROPHILS # 26.7 K/mm3 (1.8-7.7); NEUTROPHILS % 93.8 % (36.0-66.0); PLATELET COUNT, AUTOMATED 220 k/mm3 (150-450); RED CELL DISTRIBUTION WIDTH 13.1 % (11.5-14.5); WHITE BLOOD COUNT 28.4 K/mm3 (4.0-10.0)
[2017-04-26 05:17] LABS: ALBUMIN 2.5 GM/DL (3.2-5.2); ALBUMIN/GLOBULIN RATIO 0.74 (1.00-1.93); ALKALINE PHOSPHATASE 80 U/L (45-117); ALT/SGPT 39 U/L (12-78); ANION GAP 2 MEQ/L (8-16); AST/SGOT 25 U/L (15-37); BILIRUBIN,TOTAL 0.3 MG/DL (0.2-1.0); BLOOD UREA NITROGEN 33 MG/DL (7-18); CALCIUM LEVEL 8.8 MG/DL (8.5-10.1); CARBON DIOXIDE LEVEL 41 MEQ/L (21-32); CHLORIDE LEVEL 90 MEQ/L (98-107); CREATININE FOR GFR 0.69 MG/DL (0.55-1.02); GLOMERULAR FILTRATION RATE > 60.0 (>51); GLUCOSE, FASTING 195 MG/DL (70-105); POTASSIUM SERUM 4.6 MEQ/L (3.5-5.1); SODIUM LEVEL 133 MEQ/L (136-145); TOTAL PROTEIN 5.9 GM/DL (6.4-8.2)
[2017-04-26 05:49] LABS: ABG BASE EXCESS 16.2 (-2.0-2.0); ABG HCO3 42.9 MEQ/L (22.0-26.0); ABG PARTIAL PRESSURE O2 88.7 mmHg (75.0-100.0); ABG STANDARD HCO3 40.2 MEQ/L (22.0-26.0); ABG TOTAL CO2 44.8 MEQ/L (22.0-29.0); ABG pH (ARTERIAL) 7.457 UNITS (7.350-7.450)
[2017-04-26 05:50] LABS: ABG PARTIAL PRESSURE CO2 62.1 mmHg (35.0-45.0)
[2017-04-26] MEDS: HumaLOG INSULIN (NovoLOG) PER UNIT SC SCH ×3 (06:00→11:44)
[2017-04-26] MEDS ORDERED: NS 500 ML IV ONE (08:45)
[2017-04-26] MEDS: MIDAZOLAM INJ 2 MG/2 ML VIAL (J2250) IV PRN (09:04)
--- NOTE | 2017-04-26 09:06 | REP ---
PORTABLE CHEST: AP portable view of the chest is performed and compared to a prior study of 04/25/2017. There are increasing parenchymal densities diffusely bilaterally compatible with increased atelectasis/infiltrate diffusely. Endotracheal tube and nasogastric tube are again noted as well as two left chest tubes. I do not see a significant pneumothorax. IMPRESSION: Increased bilateral infiltrate/atelectasis compared to prior studies. Signed by Jayson Hudson MD 04/26/2017 05:54 P
[2017-04-26] MEDS: PANTOPRAZOLE 40MG INJ (PROTONIX) (C9113) IV SCH (09:07)
[2017-04-26] MEDS: LEVEMIR (INSULIN DETEMIR) 1 UNITS/0.01ML SC SCH (09:14)
[2017-04-26] MEDS: ENOXAPARIN 30 MG/0.3 ML SYR (J1650) SC SCH (09:15)
[2017-04-26] MEDS: SERTRALINE 100 MG TAB PO SCH (09:17)
[2017-04-26] MEDS: AZITHROMYCIN INJ 500 MG, VIAL MATE ADAPTER 1 EACH in D5W 250 ML IV SCH (09:17)
[2017-04-26] MEDS: CHLORHEXIDINE GLUCONATE 0.12 % 15ML UDC (PERIDEX ORAL RINSE) MT SCH (09:17)
[2017-04-26] MEDS: DOCUSATE SOD LIQ 100MG/10ML UDC GT SCH (09:20)
[2017-04-26] MEDS: LevoFLOXacin IV 500 MG in APPROPRIATE DILUENT 1 EA IV SCH (10:14)
[2017-04-26] MEDS ORDERED: SCOPOLAMINE 1.5 MG TRANSDERMAL TD PRN (15:15)
[2017-04-26] MEDS: LORazepam 2 MG/ML VIAL (J2060) IV PRN ×4 (16:19→16:59)
[2017-04-26] MEDS: MORPHINE 2 MG/ML 1ML SYRINGE IV PRN ×2 (16:20→16:23)
[2017-04-26] MEDS: MORPHINE 4 MG/ML 1ML SYRINGE IV PRN ×2 (16:38→16:59)
--- NOTE | 2017-04-27 05:34 | IPN ---
DATE OF SERVICE: 04/26/2017 No acute events overnight. Per nursing, she desaturated to the 60s when they rolled her over to bathe her. She remains critically ill. Her oxygen saturations have not improved in the past 3 days. Plateau pressures remain high in the mid 30s. No significant clinical improvement seen as far as her lung function or recovery. We are allowing permissive hypercapnia to try to provide her with low tidal volume ventilation. PHYSICAL EXAMINATION: VITAL SIGNS: Temperature 98.4, pulse 102, respiratory rate 30, blood pressure 99/50, pulse oximetry of 92% on ventilator settings of FiO2 of 55, respiratory rate set at 20, tidal volume at 315, PEEP at 7. GENERAL: Patient is sedated on mechanical ventilation. She opens her eyes spontaneously, is frail and with limited movement in bed. HEENT: Sclerae clear and anicteric. Pupils are about 4 mm, reacting to light. Appropriate constriction and dilation. Mucous membranes are moist. Tongue midline. Endotracheal (ET) tube and OG tube in place. NECK: Supple. No tracheal deviation, masses or adenopathy. PULMONARY: Decreased breath sounds bilaterally. Continued air leak on her left lateral chest tube. No significant leak on the apical chest tube. CARDIAC: Strong S1 and S2 without murmurs, clicks or gallops, in sinus tachycardia. No carotid bruits. Strong peripheral pulses. ABDOMEN: Soft, nondistended, hypoactive bowel sounds. EXTREMITIES: No cyanosis, clubbing, edema. SKIN: Pale, no visible rash or bleeding or bruising. MUSCULOSKELETAL: Muscle weakness and atrophy noted. No effusions or crepitus. NEUROLOGIC: Sedated as mentioned above. IMAGING: Chest x-ray shows endotracheal tube in adequate position, chest tube also in adequate position. Bilateral pulmonary interstitial infiltrates without improvement over the past few days. Compared to yesterday, visibly decreased chest expansion and chronic interstitial infiltrates unchanged. LABORATORIES: Persistent leukocytosis, increased from 22.4 yesterday to 28.4 today. Hemoglobin and hematocrit of 11.5 and 34.6 respectively, platelets 220. Patient is hyponatremic with sodium of 133, potassium 4.6, chloride 90, CO2 41, BUN and creatinine 33 and 0.69 respectively, glucose 195. IMPRESSION: 57-year-old female with 1. Severe hypoxic hypercarbic respiratory failure from IPF, overall poor prognosis. There has been no significant improvement over the past week. Will increase PEEP from 7 to 10 due to worsening chest x-ray from before and worsening atelectasis on imaging. 2. Hyponatremia. May be due to volume status. Already off of Lasix, will now administer 500 mL bolus of normal saline. 3. Respiratory acidosis and metabolic alkalosis. Plan to allow hypercapnia, to allow low tidal volume especially since biopsy showed hyaline membrane formation to be diffuse alveolar damage. 4. Deep venous thrombosis (DVT) prophylaxis with 30 mg Lovenox. 5. Gastrointestinal (GI) prophylaxis with 40 mg Protonix. 6. Tracheitis. On last day, day five, of Levaquin today. Also the last day of azithromycin today, day seven. 7. Idiopathic pulmonary fibrosis. Treated with high dose Solu-Medrol and azithromycin. No significant recovery or improvement. Overall, very poor prognosis. My preceptor for this patient encounter was Dr. Dey. The preceptor was physically present in the room during the encounter and was fully available as needed. All aspects of the patient interview, examination, medical decision making process, and medical care plan development were reviewed and approved by the preceptor. The preceptor is aware and concurs with the plan as stated in the body of this note and will attest to such by her co-signature. FREDDY
--- NOTE | 2017-04-30 21:33 | DSES ---
DATE OF ADMISSION: 04/13/2017 DATE OF DISCHARGE: 04/26/2017 Trixie was referred to Dr. Schwartz for wedge resection of interstitial lung disease. The patient had fibrosis, bronchiectasis and ground-glass abnormalities on chest CT. The patient underwent this procedure on 04/13/2017, and was then brought to the intensive care unit. After extubation she required noninvasive ventilation. She initially showed some improvement, however had increased ground-glass opacities on her chest x-ray. She remained in critical care and had an episode of hyponatremia which nephrology was consulted for. There was a question of SIADH at that point in time. Eventually there was no evidence of pneumothorax and no air leak. However, the patient continued to decline from a respiratory status. She was empirically treated for the possibility of pneumonia. Her respiratory status continued to decline and despite being on continuous bilevel with escalating pressures, continued to fail until the morning of 04/20/2017, where I had a discussion with the patient's who was her identified healthcare proxy. I advised him that she will not likely do well on mechanical ventilation and the option was to try mechanical ventilation and high dose steroids again or to convert her to comfort measures. He elected for mechanical ventilation and a trial of high dose steroids. We did this for a week with no significant improvement. She actually had recurrence of a pneumothorax. I had to place an anterior chest tube. She had no significant recovery of her respiratory status despite there being minimal improvement of the ground glass opacities with the use of Solu-Medrol and azithromycin. On 04/26/2017, the had decided to withdraw care as this would be her wishes, that she would not want to continue on mechanical ventilation. She was extubated and passed shortly after with comfort measures. No autopsy was requested. SURGERIES/PROCEDURES: 1. Triple wedge resection of apical basilar segment of the lower lobe, posterior segment of the left lower lobe and lingula, bronchoscopy, five level rib block using video-assisted thoracoscopic surgery (VATS). 2. Anterior chest tube placement times two. 3. Bronchoscopy in the intensive care unit for clearance of mucus. DIAGNOSES: 1. Acute hypoxic hypercarbic respiratory failure. 2. Idiopathic pulmonary fibrosis proven on biopsy. 3. Hyponatremia. 4. Pneumothorax. 5. Hypophosphatemia. 6. Tracheitis. 7. Sinus tachycardia. 8. Hyperglycemia. 9. Depression and psychosis. MTDD
== END 2017-04-26 17:53 | disposition expired | DRG 163 ==
LOC: M OR 08:55 → M ICU 15:50
PROVIDERS: ADMIT Thoracic Surgery (Cardiothoracic Vascular Surgery); ATTEND Internal Medicine Pulmonary Disease
PROC: 0BTJ0ZZ Resection of Left Lower Lung Lobe, Open Approach (ICD-10-PCS; principal; 2017-04-13 11:15)
PROC: 5A1955Z Respiratory Ventilation, Greater than 96 Consecutive Hours (ICD-10-PCS; 2017-04-20)
DX: J84.112 Idiopathic pulmonary fibrosis (principal); J96.01 Acute respiratory failure with hypoxia; J86.0 Pyothorax with fistula; J96.02 Acute respiratory failure with hypercapnia; E87.2 Acidosis; J93.82 Other air leak; J93.83 Other pneumothorax; E87.1 Hypo-osmolality and hyponatremia; E22.2 Syndrome of inappropriate secretion of antidiuretic hormone; E87.3 Alkalosis; E46 Unspecified protein-calorie malnutrition; R91.1 Solitary pulmonary nodule; J04.10 Acute tracheitis without obstruction; F32.9 Major depressive disorder, single episode, unspecified; E83.39 Other disorders of phosphorus metabolism; Z51.5 Encounter for palliative care; E11.65 Type 2 diabetes mellitus with hyperglycemia; Z79.899 Other long term (current) drug therapy; F41.9 Anxiety disorder, unspecified; R31.9 Hematuria, unspecified; R80.9 Proteinuria, unspecified